=== PATIENT | female | born 1945 | race Caucasian/White ===

== ENCOUNTER 2023-02-16 09:04 | Outpatient (OUT) | payer MEDICARE, SELFPAY ==
--- NOTE | 2023-02-16 09:08 | MM_ITS ---
Patient Name: MILDRED BRAN MR#: [id number] : 1945 Exam Date: 02/16/2023 Ordering Doctor: DR. SKYLAR BURGOS . RADIOLOGY REPORT PROCEDURE: MM TOMOSYNTHESIS SCREENING BI COMPARISON: MG MAMM SCREEN VENKAT W CAD, 03/16/2018. MG MAMM SCREEN VENKAT W CAD, 10/28/2019. INDICATIONS: z12.31, z00.00 screening Calculator Name NCI Breast Cancer Risk Assessment Tool 5 Year Breast Cancer Risk 2.90% Lifetime Breast Cancer Risk 6.20% Personal Breast Cancer No Personal Ovarian Cancer No Treatments None Family Cancers None LOCATION: [facility] BREAST COMPOSITION: Scattered areas fibroglandular density. FINDINGS: DIAGNOSTIC CATEGORY 1--NEGATIVE. NO CHANGE FROM COMPARISON ASSESSMENT. Scattered benign-appearing calcifications are present. Scattered benign-appearing lymph nodes are present. RIGHT BREAST: No significant suspicious finding. Stable micro clip marker upper outer quadrant, mid breast LEFT BREAST: No significant suspicious finding. RECOMMENDATIONS: ROUTINE MAMMOGRAM AND CLINICAL EVALUATION IN 12 MONTHS. PLEASE NOTE: A NORMAL MAMMOGRAM DOES NOT EXCLUDE THE POSSIBILITY OF BREAST CANCER. A CLINICALLY SUSPICIOUS PALPABLE LUMP SHOULD BE BIOPSIED. Dictated by: Jatinder Morris MD on 02/16/2023 at 10:14 Approved by: Jatinder Morris MD on 02/16/2023 at 10:16
--- NOTE | 2023-02-16 09:09 | XR_ITS ---
[address] [address] Patient Name: MILDRED BRAN MRN: [id number] date: 1945 Sex: F Assigned Patient Location: [facility] Current Patient Location: [facility] Accession/Order Number: [id number] Exam Date: 02/16/2023 09:25 Report Date: 02/16/2023 09:44 At the request of: SKYLAR BURGOS Procedure: XR DEXA axial skeleton EXAMINATION: XR DEXA axial skeleton, 02/16/2023 9:25 AM EST HISTORY: E28.39, Z00.00, screening COMPARISON: 2008, 2006. TECHNIQUE: Dual-energy X-ray absorptiometry (DEXA) bone density study performed for the axial skeleton. HISTORY: E28.39, Z00.00, screening FINDINGS: Bone mineral density AP spine L2-L4 measures 0.974 g/sq cm. This is a 4.9% reduction from 2009, physiologic. WHO classification: Osteopenia. Moderate fracture risk. Bone mineral density in the right femoral neck measures 0.772 g/sq cm. T score -1.9. WHO classification: Osteopenia XR/XR DEXA axial skeleton IMPRESSION: Osteopenia. Moderate fracture risk Electronically authenticated by: INNA RODAS Date: 02/16/2023 09:44
== END 2023-02-16 09:05 | disposition home or self-care (01) ==
LOC: MAMMO 09:05
PROVIDERS: PCP Family Medicine; Visit Provider Family Medicine
DX: Z12.31 Encounter for screening mammogram for malignant neoplasm of breast (principal); Z00.00 Encounter for general adult medical examination without abnormal findings; E28.39 Other primary ovarian failure; M85.80 Other specified disorders of bone density and structure, unspecified site
CPT/HCPCS: 77063; 77067; 77080

== ENCOUNTER 2023-10-31 16:01 | Emergency (ER) | payer MEDICARE, SELFPAY ==
[2023-10-31 16:06] VITALS: BP 145/64; PULSE 82; TEMP 37; O2SAT 97; BMI 36.2
--- OUTSIDE RECORDS SUMMARY | 2023-10-31 16:12 | XMS_ITS | CCD ---
Author Organization [facility] Care Team Providers Care Bulk Driver Name Role Phone MD Lisandra Ring Primary Care Provider DO Jatinder Pittman Attending Provider LISANDRA RING Primary Care Physician RING ., DR LISANDRA Chinchilla Admitting Unavailable IRNG ., DR LISANDRA Chinchilla Attending Unavailable RING ., DR LISANDRA Chinchilla Consulting Unavailable RING ., DR LISANDRA Chinchilla Primary Care Unavailable MISC, DR DE LA ROSA Admitting Unavailable MISC, DR DE LA ROSA Attending Unavailable MISC, DR DE LA ROSA Consulting Unavailable RING ., DR LISANDRA Chinchilla Primary Care Unavailable RING ., DR LISANDRA Chinchilla Primary Care Unavailable RING ., DR LISANDRA Chinchilla Admitting Unavailable RING ., DR LISANDRA Chinchilla Attending Unavailable RING ., DR LISANDRA Chinchilla Consulting Unavailable KRISTIN ., TORIE Admitting Unavailable KRISTIN ., TORIE Attending Unavailable KRISTIN ., TORIE Consulting Unavailable RING ., DR LISANDRA Chinchilla Primary Care Unavailable IVANNA LEZAMA Admitting Unavailable LISE, IVANNA Attending Unavailable LISE, IVANNA Consulting Unavailable RING ., DR LISANDRA Chinchilla Primary Care Unavailable CHRISTELLE RAYMOND Consulting Unavailable MICH MCKENZIE Consulting Unavailable TAHIR ., DR SÁNCHEZ Admitting Unavailable HARO ., DR SÁNCHEZ Attending Unavailable RING ., DR LISANDRA Chinchilla Primary Care Unavailable RING ., DR LISANDRA Chinchilla Admitting Unavailable RING ., DR LISANDRA Chinchilla Attending Unavailable RING ., DR LISANDRA Chinchilla Consulting Unavailable RING ., DR LISANDRA Chinchilla Primary Care Unavailable RING ., DR LISANDRA Chinchilla Admitting Unavailable RING ., DR LISANDRA Chinchilla Attending Unavailable RING ., DR LISANDRA Chinchilla Primary Care Unavailable RING ., DR LISANDRA Chinchilla Admitting Unavailable RING ., DR LISANDRA Chinchilla Primary Care Unavailable RING ., DR LISANDRA Chinchilla Attending Unavailable RING ., DR LISANDRA Chinchilla Consulting Unavailable RINGLISANDRA Primary Care Physician Bony Calhoun Primary Care Physician Bony Calhoun Attending Unavailable Bony Calhoun Admitting Unavailable MD Bony Calhoun Attending Unavailable MD Bony Calhoun Admitting Unavailable Neva Melissa Attending Unavailable MD Bony Calhoun Attending Unavailable MD Bony Calhoun Attending Unavailable MD Bony Calhoun Attending Unavailable MD Bony Calhoun Attending Unavailable MD Bony Calhoun Attending Unavailable MD Bony Calhoun Attending Unavailable MD Bony Calhoun Attending Unavailable MD Bony Calhoun Attending Unavailable MD Bony Calhoun Admitting Unavailable Palomo Bernard Attending Unavailable Palomo Bernard Admitting Unavailable Palomo Bernard Attending Unavailable Chen Estrella Referring Unavailable Allergies Allergy Classification Reported Allergen(s) Allergy Type Date of Onset Reaction(s) Facility (3 sources) Adhesive Tape; Translations: [Adhesive tape] Allergy to substance 3 Itching [facility] (12 sources) Albuterol; Translations: [Albuterol] Drug Allergy 5 Difficulty breathing (finding) [facility] (12 sources) benzoin resin; Translations: [Benzoin] Drug Allergy 3 Blister (morphologic abnormality) [facility] (16 sources) Cephalexin; Translations: [Cephalexin] Drug Allergy 2 Unknown (qualifier value), Anaphylaxis (disorder) [facility] (9 sources) Adhesive Tape; Translations: [Tape] Allergy to substance Blister (morphologic abnormality) [facility] (4 sources) Cephalexin; Translations: [Keflex] Drug Allergy 1 [facility] Repository Medications Current Medications Medication Drug Class(es) Dates Sig (Normalized) Sig (Original) acetaminophen 325 mg / oxyCODONE hydrochloride 5 mg oral tablet (1 source) Opioid Agonist Start: 05-11-2023 End: 05-14-2023 Percocet 5 mg-325 mg oral tablet 1 tab(s), Oral, q6hr for 3 day(s), 10 tab(s), Refill(s) 0, [id number], 152, cm, 05/11/23 9:24:00 EST, Height/Length Dosing, 89, kg, 05/11/23 9:24:00 EST, Weight Dosing Start Date: 05/11/23 Stop Date: 05/14/23 Status: Ordered alendronic acid 35 mg oral tablet (4 sources) Bisphosphonate Start: 03-30-2023 alendronate 35 mg Tab 35 mg = 1 tab(s), Oral, q7day, # 12 tab(s), Refills(s) 0, [id number] 152, cm, 03/30/23 10:10:00 EST, Height/Length Dosing, 88.5, kg, 03/30/23 10:10:00 EST, Weight Dosing Start Date: 03/30/23 Status: Ordered amitriptyline hydrochloride 10 mg oral tablet (8 sources) Tricyclic Antidepressant Start: 05-21-2023 amitriptyline 10 mg Tab See Instructions, TAKE 4 TABLETS AT BEDTIME, # 360 tab(s), Refills(s) 1, Pharmacy: [facility] [id number], 152, cm, 05/11/23 9:24:00 EST, Height/Length Dosing, 89, kg, 05/11/23 9:24:00 EST, Weight Dosing Start Date: 05/21/23 Status: Ordered Start: 12-01-2022 amitriptyline 10 mg Tab See Instructions, 40mg at bedtime, # 120 EA, Refills(s) 5, [id number], 152, cm, 09/26/22 9:58:00 EDT, Height/Length Dosing, 90.3, kg, 09/26/22 9:58:00 EDT, Weight Dosing Start Date: 12/01/22 Status: Ordered Start: 09-27-2021 take 10 mg by mouth once daily Amitriptyline Active 10 MG PO Daily September 27, 2021 12:00am Start: 04-19-2012 amitriptyline See Instructions, 40mg at bedtime, Refills(s) 0 Start Date: 04/19/12 Status: Ordered Start: 04-19-2012 take 3-4 tablets by mouth at bedtime amitriptyline 10 mg, Oral, 3-4 tabs at bedtime, Refills(s) 0 Start Date: 04/19/12 Status: Ordered baclofen 5 mg oral tablet (2 sources) gamma-Aminobutyric Acid-ergic Agonist Start: 10-01-2023 End: 10-31-2023 take 1 tablet by mouth three times daily baclofen 5 mg oral tablet 5 mg = 1 tab(s), Oral, TID, X 30 day(s), # 90 tab(s), Refills(s) 0, [id number], 151, cm, 10/01/23 10:24:00 EDT, Height/Length Dosing, 87.3, kg, 10/01/23 10:24:00 EDT, Weight Dosing Start Date: 10/01/23 Stop Date: 10/31/23 Status: Ordered Calcium Citrate / Vitamin D (7 sources) Start: 04-19-2012 calcium-vitamin D BID, Refill(s) 0 Start Date: 04/19/12 Status: Ordered celecoxib 200 mg oral capsule (8 sources) Nonsteroidal Anti-inflammatory Drug Start: 05-21-2023 take 1 capsule by mouth twice daily celecoxib 200 mg Cap See Instructions, TAKE 1 CAPSULE BY MOUTH TWICE A DAY, # 180 cap(s), Refills(s) 1, Pharmacy: [id number], 152, cm, 05/11/23 9:24:00 EST, Height/Length Dosing, 89, kg, 05/11/23 9:24:00 EST, Weight Dosing Start Date: 05/21/23 Status: Ordered Start: 12-08-2022 take 1 capsule by [facility] twice daily CeleBREX 200 mg Cap 200 mg, Oral, BID, # 180 cap(s), Refills(s) 1, [id number], 152, cm, 09/26/22 9:58:00 EDT, Height/Length Dosing, 90.3, kg, 09/26/22 9:58:00 EDT, Weight Dosing Start Date: 12/08/22 Status: Ordered Start: 09-27-2021 take 200 mg by mouth once mikayla y Celecoxib Active 200 MG PO Daily September 27, 2021 12:00am Start: 04-19-2012 take 200 mg by mouth twice daily Celebrex 200 mg, Oral, BID, Refills(s) 0 Start Date: 04/19/12 Status: Ordered ciprofloxacin 500 mg oral tablet (1 source) Quinolone Antimicrobial Start: 05-11-2023 End: 05-16-2023 take 1 tablet by mouth twice daily Cipro 500 mg Tab 500 mg = 1 tab(s), Oral, BID, X 5 day(s), # 10 tab(s), Refills(s) 0, [id number], 152, cm, 05/11/23 9:24:00 EST, Height/Length Dosing, 89, kg, 05/11/23 9:24:00 EST, Weight Dosing Start Date: 05/11/23 Stop Date: 05/16/23 Status: Ordered Dosokap oral tablet (4 sources) Start: 02-23-2023 Dosokap oral tablet 1 tab(s), Oral, Daily, 90 tab(s), Refill(s) 0, [facility] #[id number], 152, cm, 02/23/23 15:56:00 EST, Height/Length Dosing, 89.7, kg, 02/23/23 15:56:00 EST, Weight Dosing Start Date: 02/23/23 Status: Ordered ferrous sulfate 324 mg delayed release oral tablet (7 sources) Start: 04-19-2012 ferrous sulfate 324 mg (65 mg elemental iron) oral enteric coated tablet Oral, Daily, Refills(s) 0 Start Date: 04/19/12 Status: Ordered FLUoxetine 40 mg oral capsule (6 sources) Serotonin Reuptake Inhibitor Start: 10-01-2023 FLUoxetine 40 mg Cap Refills(s) 0 Start Date: 10/01/23 Status: Ordered Start: 09-27-2021 take 1 capsule by [facility] once daily Fluoxetine (Prozac) 20 mg Capsule Active 20 MG PO Daily September 27, 2021 12:00am Start: 12-20-2018 take 2 capsules by [facility] once daily Prozac 40 mg Cap 80 mg = 2 cap(s), Oral, Daily, # 30 cap(s), Refills(s) 0 Start Date: 12/20/18 Status: Ordered Start: 12-20-2018 take 1 capsule by [facility] once daily Prozac 40 mg Cap 40 mg = 1 cap(s), Oral, Daily, # 30 cap(s), Refills(s) 0 Start Date: 12/20/18 Status: Ordered hydroCHLOROthiazide 12.5 mg oral capsule (7 sources) Thiazide Diuretic Start: 09-03-2023 take 1 capsule by mouth once daily hydrochlorothiazide 12.5 mg Cap See Instructions, TAKE 1 CAPSULE BY MOUTH EVERY DAY, # 90 cap(s), Refills(s) 0, [id number], 152, cm, 05/11/23 9:24:00 EST, Height/Length Dosing, 89, kg, 05/11/23 9:24:00 EST, Weight Dosing Start Date: 09/03/23 Status: Ordered Start: 02-23-2023 take 1 capsule by [facility] once daily hydrochlorothiazide 12.5 mg Cap 12.5 mg = 1 cap(s), Oral, Daily, # 90 cap(s), Refills(s) 1, [id number], 152, cm, 02/23/23 15:56:00 EST, Height/Length Dosing, 89.7, kg, 02/23/23 15:56:00 EST, Weight Dosing Start Date: 02/23/23 Status: Ordered Start: 04-21-2022 take 1 capsule by [facility] once daily hydrochlorothiazide 12.5 mg Cap 12.5 mg = 1 cap(s), Oral, Daily, # 30 cap(s), Refills(s) 1, [id number] Start Date: 04/21/22 Status: Ordered levothyroxine sodium 0.075 mg oral tablet (8 sources) l-Thyroxine Start: 06-30-2023 take 1 tablet by mouth once daily levothyroxine 75 mcg (0.075 mg) Tab See Instructions, TAKE 1 TABLET BY MOUTH EVERY DAY, # 90 tab(s), Refills(s) 0, Pharmacy: [facility] [id number], 152, cm, 09/28/23 10:22:00 EDT, Height/Length Dosing, 87.7, kg, 09/28/23 10:22:00 EDT, Weight Dosing Start Date: 09/29/23 Status: Ordered Start: 03-30-20[address] [facility] once daily levothyroxine 75 mcg (0.075 mg) Tab 75 mcg = 1 tab(s), Oral, Daily, # 90 tab(s), Refills(s) 0, Pharmacy: [facility]/pharmacy #[id number], 152, cm, 03/30/23 10:10:00 EST, Height/Length Dosing, 88.5, kg, 03/30/23 10:10:00 EST, Weight Dosing Start Date: 03/30/23 Status: Ordered Start: 04-21-2022 take 1 tablet by ester th once daily levothyroxine 75 mcg (0.075 mg) Tab 75 mcg = 1 tab(s), Oral, Daily, Refills(s) 0 Start Date: 04/21/22 Status: Ordered Start: 09-27-2021 take 75 ug by mouth once daily Levothyroxine Active 75 MCG PO Daily September 27, 2021 12:00am metFORMIN hydrochloride 500 mg oral tablet (4 sources) Biguanide Start: 09-22-2023 take 1 tablet by mouth once daily MetFORMIN (Eqv-Glucophage XR) 500 mg oral tablet, extended release See Instructions, TAKE 1 TABLET BY MOUTH EVERY DAY, # 90 tab(s), Refills(s) 0, Pharmacy: [id number], 152, cm, 05/11/23 9:24:00 EST, Height/Length Dosing, 89, kg, 05/11/23 9:24:00 EST, Weight Dosing Start Date: 09/22/23 Status: Ordered Start: 03-23-2023 take 1 tablet by ester th once daily MetFORMIN (Eqv-Glucophage XR) 500 mg oral tablet, extended release See Instructions, TAKE 1 TABLET BY MOUTH EVERY DAY, # 90 tab(s), Refills(s) 0, Pharmacy: [facility] STORE [id number], 152, cm, 02/23/23 15:56:00 EST, Height/Length Dosing, 89.7, kg, 02/23/23 15:56:00 EST, Weight Dosing Start Date: 03/23/23 Status: Ordered modafinil 200 mg oral tablet (8 sources) Sympathomimetic-like Agent Start: 07-03-2023 take 0.5 tablet by mouth once daily in the morning modafinil 200 mg Tab See Instructions, 0.5 tab(s) Oral qAM, # 90 tab(s), Refills(s) 0, Pharmacy: [facility]/pharmacy #[id number], 152, cm, 05/11/23 9:24:00 EST, Height/Length Dosing, 89, kg, 05/11/23 9:24:00 EST, Weight Dosing Start Date: 07/03/23 Status: Ordered Start: 09-27-2021 take 100 mg by mouth once mikayla y Modafinil Active 100 MG PO Daily September 27, 2021 12:00am Start: 04-19-2012 take 0.5 tablet by m outh once daily in the morning modafinil 200 mg, Oral, qAM, half tab, Refills(s) 0 Start Date: 04/19/12 Status: Ordered Start: 04-19-2012 take 0.5 tablet by m outh once daily in the morning modafinil 100 mg, Oral, qAM, half tab, Refills(s) 0 Start Date: 04/19/12 Status: Ordered oxybutynin chloride 5 mg oral tablet (7 sources) Cholinergic Muscarinic Antagonist Start: 04-21-2022 take 1 tablet by mouth once daily oxybutynin 5 mg Tab 5 mg = 1 tab(s), Oral, Daily, Refills(s) 0 Start Date: 04/21/22 Status: Ordered Multivitamins (3 sources) Start: 04-19-2012 take 1 tablet by mouth once daily Multivitamins 1 tab(s), Oral, Daily, Refill(s) 0 Start Date: 04/19/12 Status: Ordered PreserVision AREDS (2 sources) Start: 10-01-2023 PreserVision AREDS Refill(s) 0 Start Date: 10/01/23 Status: Ordered tamsulosin hydrochloride 0.4 mg oral capsule (4 sources) alpha-Adrenergic Vivek Start: 05-11-2023 take 1 capsule by mouth once daily Flomax 0.4 mg Cap 0.4 mg = 1 cap(s), Oral, Daily, Take one capsule by mouth daily for four days, # 4 cap(s), Refills(s) 0, Pharmacy: [facility]/pharmacy #[id number], 152, cm, 05/11/23 9:24:00 EST, Height/Length Dosing, 89, kg, 05/11/23 9:24:00 EST, Weight Dosing Start Date: 05/11/23 Status: Ordered tiZANidine 4 mg oral capsule (3 sources) Central alpha-2 Adrenergic Agonist Start: 09-28-2023 take 1 capsule by mouth three times daily as needed for muscle spasms tizanidine 4 mg oral capsule 4 mg = 1 cap(s), Oral, TID, PRN Spasm, # 90 cap(s), Refills(s) 0, Pharmacy: [facility]/pharmacy #[id number], 152, cm, 09/28/23 10:22:00 EDT, Height/Length Dosing, 87.7, kg, 09/28/23 10:22:00 EDT, Weight Dosing Start Date: 09/28/23 Status: Ordered Problems Active Problems Problem Classification Problem Date Documented Da te Episodic/Chronic Abdominal pain (6 sources) Flank pain; Translations: [Unspecified abdominal pain] Onset: 04-10-2022 12-20-2018 Episodic Calculus of urinary tract (14 sources) Kidney stone; Translations: [Calculus of kidney] Onset: 04-11-2022 Episodic Deficiency and other anemia (7 sources) Anemia 10-01-2018 Episodic Deficiency and other anemia (4 sources) Anemia, unspecified; Translations: [ANEMIA UNSPECIFIED] Onset: 06-05-2022 Episodic Diabetes mellitus without complication (3 sources) Type 2 diabetes mellitus 09-28-2023 Chronic Diabetes mellitus without complication (5 sources) Hyperglycemia 12-22-2022 Episodic Disorders of lipid metabolism (9 sources) Pure hypercholesterolemia , unspecified; Translations: [Hypercholesterolemi a] Onset: 08-15-2021 Chronic Diverticulosis and diverticulitis (1 source) Diverticulosis of large intestine without perforation or abscess without bleeding; Translations: [DVRTCLOS LG INT NO PERF/ABSC W/O BL] Onset: 04-11-2022 Chronic Essential hypertension (6 sources) Essential (primary) hypertension; Translations: [Benign hypertension] Onset: 06-11-2022 09-26-2022 Chronic Genitourinary symptoms and ill-defined conditions (11 sources) Mixed incontinence; Translations: [Incontinence] Onset: 04-21-2022 Chronic Genitourinary symptoms and ill-defined conditions (19 sources) Dysuria; Translations: [Vargas hematuria] 10-01-2018 Episodic Hepatitis (2 sources) Viral hepatitis, type A 10-01-2018 Episodic Mood disorders (7 sources) Depressive disorder; Translations: [Single episode of major depression in full remission] 10-01-2018 Chronic Osteoarthritis (7 sources) Arthritis 10-01-2018 Chronic Other aftercare (1 source) 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; Translations: [OTH [facility] CURRENT DRUG THERAPY] Onset: 04-11-2022 Episodic Other bone disease and musculoskeletal deformities (4 sources) Osteopenia 02-16-2023 Episodic Other diseases of kidney and ureters (2 sources) Urinary tract obstruction; Translations: [Hydronephrosis with renal and ureteral calculous obstruction] Onset: 04-21-2022 Episodic Other diseases of kidney and ureters (14 sources) Hydronephrosis 12-20-2018 Episodic Other gastrointestinal disorders (1 source) Alteration in bowel elimination; Translations: [Change in bowel habit] 09-27-2021 Episodic Other gastrointestinal disorders (1 source) Change in bowel habit; Translations: [Other symptoms involving digestive system] 09-27-2021 Episodic Other gastrointestinal disorders (1 source) Bariatric surgery status; Translations: [BARIATRIC SURGERY STATUS] Onset: 04-11-2022 Episodic Other liver diseases (2 sources) Steatosis of liver 10-01-2023 Chronic Other liver diseases (4 sources) Elevated liver enzymes level 12-31-2022 Episodic Other nervous system disorders (5 sources) Taste sense altered 12-22-2022 Episodic Other non-traumatic joint disorders (4 sources) Other specified arthritis, unspecified site; Translations: [OTHER SPECIFIED ARTHRITIS UNS SITE] Onset: 12-11-2021 Chronic Other nutritional; endocrine; and metabolic disorders (3 sources) Body mass index 40+ - severely obese 12-20-2018 Chronic Other nutritional; endocrine; and metabolic disorders (7 sources) Morbid obesity 10-01-2018 Chronic Other nutritional; endocrine; and metabolic disorders (1 source) Morbid (severe) obesity due to excess calories; Translations: [MORBID SEVERE OBES D/T EXCESS WAYNE] Onset: 06-11-2022 Chronic Other nutritional; endocrine; and metabolic disorders (1 source) Body mass index (BMI) 40.0-44.9, adult; Translations: [BODY MASS INDEX BMI 40.0-44.9 ADULT] Onset: 06-11-2022 Chronic Other nutritional; endocrine; and metabolic disorders (5 sources) Metabolic syndrome X 09-17-2022 Chronic Residual codes; unclassified (1 source) Obstructive sleep apnea (adult) (pediatric); Translations: [OBSTRUCTIVE SLEEP APNEA] Onset: 06-11-2022 Chronic Residual codes; unclassified (5 sources) Hypersomnia 12-22-2022 Chronic Residual codes; unclassified (5 sources) Obstructive sleep apnea syndrome 09-17-2022 Chronic Residual codes; unclassified (1 source) Acquired absence of both cervix and uterus; Translations: [ACQUIRED ABSENCE BOTH CERVIX AND UTERUS] Onset: 04-11-2022 Episodic Spondylosis; intervertebral disc disorders; other back problems (4 sources) Backache 02-23-2023 Episodic Thyroid disorders (6 sources) Hypothyroidism, unspecified; Translations: [Hypothyroidism] Onset: 08-19-2021 09-26-2022 Chronic Unclassified (7 sources) Drug therapy finding 10-01-2018 Urinary tract infections (2 sources) Pyonephrosis; Translations: [Hematuria co-occurrent and due to cystitis] Onset: 04-11-2022 Episodic Past or Other Problems Problem Classification Problem Date Documented Da te Episodic/Chronic Malaise and fatigue (1 source) Other fatigue; Translations: [OTHER FATIGUE] Onset: 08-19-2021 Episodic Nonspecific chest pain (5 sources) Other chest pain; Translations: [OTHER CHEST PAIN] Onset: 08-20-2021 Episodic Other lower respiratory disease (5 sources) Other forms of dyspnea; Translations: [OTHER FORMS OF DYSPNEA] Onset: 08-22-2021 Episodic Other skin disorders (3 sources) Rash and other nonspecific skin eruption; Translations: [RASH OTH NONSPECIFIC SKIN ERUPTION] Onset: 09-26-2021 Episodic Viral infection (1 source) Zoster without complications; Translations: [ZOSTER WITHOUT COMPLICATIONS] Onset: 09-27-2021 Episodic Results Test Name Value Interpretation Reference Range Facil ity XR Hip 2-3 Views Lefton 09-07 XR Hip 2-3 Views Left Exam Date/Time: 10/01/2023 11:54 EDT Reason for Exam: Other (please specify) Report IMPRESSION: MILD OSTEOARTHRITIS OF THE LEFT HIP CLINICAL HISTORY: Other (please specify) COMPARISONS: NONE AVAILABLE FINDINGS: 2 views of left hip are submitted. There is mild narrowing of the joint space. There is some minimal degenerative changes. No dislocation. No focal bony abnormality. No acute fracture Ordering Provider: Palomo Bernard FINAL REPORT Dictated: 10/01/2023 3:12 pm Benedicto Dewey Signed (Electronic Signature): 10/01/2023 3:12 pm Signed by: Benedicto Dewey Transcribed by: RAISSA Technologist: SHANNA Technical Comments Radiation Dose: Ka,r in mGy = . DAP = . Normal [facility] XR Spine Lumbosacral Minimum 4 Viewson 10-01-2023 XR Spine Lumbosacral Minimum 4 Views Exam Date/Time: 10/01/2023 11:53 EDT Reason for Exam: M25.552, M47.816 Report IMPRESSION: Multilevel osteoarthritis of lumbar spine. No acute fracture CLINICAL HISTORY: M25.552, M47.816 COMPARISON: NONE FINDINGS: 6 views lumbar spine are submitted. There are 5 lumbar-type vertebra. There is diffuse to as osteopenia There is a mild rotatory levoscoliosis.. There is multilevel degenerative changes of the posterior facets lower lumbar spine. There is anterior spondylosis. There is narrowing of the L1-L2, L3-L4 and L4-L5 disc spaces. No significant listhesis The SI joints are intact. No focal bony adenopathy. No spondylolysis. No acute fracture Ordering Provider: Palomo Bernard FINAL REPORT Dictated: 10/01/2023 8:29 pm Benedicto Dewey Signed (Electronic Signature): 10/01/2023 8:29 pm Signed by: Benedicto Dewey Transcribed by: RAISSA Technologist: SHANNA Technical Comments Radiation Dose: Ka,r in mGy = . DAP = . Normal [facility] [id number] 09-29-2023 HbA1c (Bld) [Mass fraction] 5.9 % Normal <=5.9 [facility] Comment on above: Performed By: #### [id number] #### [facility] [address] [place] [address] Ambulatory Visit Summaryon 0 09-28-2023 Ambulatory Visit Summary Ambulatory Visit Summary MILDRED BRAN :1945 Visit Date:09/28/2023 Ambulatory Visit Instructions Your Diagnosis HTN (hypertension), benign Hypersomnia BMI 37.0-37.9, adult Class 1 obesity due to excess calories in adult Nonsmoker Type 2 diabetes mellitus, controlled Metabolic syndrome X Back pain Major depressive disorder with single episode, in full remission Hypothyroidism, unspecified type Your Care Team Attending Physician - Bony Calhoun MD Primary Care Physician - Bony Calhoun MD This Is Your Medications List tizanidine (tizanidine 4 mg oral capsule) Contact prescribing physician if questions or concerns alendronate (alendronate 35 mg Tab) amitriptyline (amitriptyline 10 mg Tab) calcium-vitamin D celecoxib (celecoxib 200 mg Cap) ferrous sulfate (ferrous sulfate 324 mg (65 mg elemental iron) oral enteric coated tablet) hydrochlorothiazide (hydrochlorothiazide 12.5 mg Cap) levothyroxine (levothyroxine 75 mcg (0.075 mg) Tab) metformin (MetFORMIN (Eqv-Glucophage XR) 500 mg oral tablet, extended release) modafinil (modafinil 200 mg Tab) multivitamin (Dosokap oral tablet) oxybutynin (oxybutynin 5 mg Tab) tamsulosin (Flomax 0.4 mg Cap) Procedures Performed ESWL of kidney (07/19/2019), Lithotripsy (04/15/2018), Lithotripsy using laser (04/08/2018), Appendectomy, Colonoscopy, Gastric bypass, Hernia repair, Hysterectomy, Repair of vagina, Stent removal. Discharge Vitals Temperature (Oral) 36.7 ?C Heart Rate (Peripheral) 76 Respiratory Rate 18 Blood Pressure 122/76 Height 152 cm Height 60 in Weight 87.7 kg Weight 192.94 lb BMI 37.96 What to do next Scheduled Follow-Up Appointments Thursday 10:00 AM EDT With: Bony Calhoun MD Where: [place] [id number] \.br\ Medications\.br\ What How Much When Why Instructions\.br\ New tizanidine (tizanidine 4 mg oral capsule) 1 Capsules By Mouth 3 times a day as needed for Spasm HTN (hypertension), benign Hypersomnia BMI 37.0-37.9, adult Class 1 obesity due to excess calories in adult Nonsmoker Type 2 diabetes mellitus, controlled Metabolic syndrome X Back pain Major depressive disorder with single episode, in full remission Hypothyroidism, unspecified type Pickup at [facility]/pharmacy #[id number]\.br\ Unchanged alendronate (alendronate 35 mg Tab) 1 Tablets By Mouth Every 7 days Osteopenia HTN (hypertension), benign Major depressive disorder with single episode, in full remission Hyperglycemia Kidney stones Back pain Contact prescribing physician if questions or concerns \.br\ Unchanged amitriptyline (amitriptyline 10 mg Tab) See instructions TAKE 4 TABLETS AT BEDTIME Contact prescribing physician if questions or concerns \.br\ Unchanged calcium-vitamin D 2 times a day Contact prescribing physician if questions or concerns \.br\ Unchanged celecoxib (celecoxib 200 mg Cap) See instructions TAKE 1 CAPSULE BY MOUTH TWICE A DAY Contact prescribing physician if questions or concerns \.br\ Unchanged ferrous sulfate (ferrous sulfate 324 mg (65 mg elemental iron) oral enteric coated tablet) By Mouth Every day Contact prescribing physician if questions or concerns \.br\ Unchanged hydrochlorothiazide (hydrochlorothiazide 12.5 mg Cap) See instructions TAKE 1 CAPSULE BY MOUTH EVERY DAY Contact prescribing physician if questions or concerns \.br\ Unchanged levothyroxine (levothyroxine 75 mcg (0.075 mg) Tab) See instructions TAKE 1 TABLET BY MOUTH EVERY DAY Contact prescribing physician if questions or concerns \.br\ Unchanged metformin (MetFORMIN (Eqv-Glucophage XR) 500 mg oral tablet, extended release) See instructions TAKE 1 TABLET BY MOUTH EVERY DAY Contact prescribing physician if questions or concerns \.br\ Unchanged modafinil (modafinil 200 mg Tab) See instructions 0.5 tab(s) Oral qAM Contact prescribing physician if questions or concerns \.br\ Unchanged multivitamin (Dosokap oral tablet) 1 Tablets By Mouth Every day Osteopenia HTN (hypertension), benign Major depressive disorder with single episode, in full remission Hyperglycemia Kidney stones Back pain Contact prescribing physician if questions or concerns \.br\ Unchanged oxybutynin (oxybutynin 5 mg Tab) 1 Tablets By Mouth Every day Contact prescribing physician if questions or concerns \.br\ Unchanged tamsulosin (Flomax 0.4 mg Cap) 1 Capsules By Mouth Every day Take one capsule by mouth daily for four days Contact prescribing physician if questions or concerns \.br\ Pharmacy Information\.br\ [facility]/pharmacy #[id number]: [address], [place] [phone]\.br\ Allergies\.br\ Benzoin (Blisters)\.br\ albuterol (Difficulty breathing)\.br\ Keflex (Unknown)\.br\ Tape (Blisters)\.br\ cephalexin (Anaphylaxis)\.br\ Problems\.br\ Ongoing - Any problem that you are currently receiving treatment for.\.br\ Anemia\.br\ Anticoagulated\.br\ Arthritis\.br\ Back pain\.br\ Elevated liver enzymes\.br\ History of UTI\.br\ HTN (hypertension), benign\.br\ Hydronephrosis with obstructing calculus\.br\ Hypercholesterolemia \.br\ Hyperglycemia\.br\ Hypersomnia\.br\ Hypothyroidism\.br\ Kidney stones\.br\ Major depressive disorder with single episode, in full remission\.br\ Metabolic syndrome X\.br\ Mixed incontinence\.br\ Morbid obesity\.br\ Obstructive sleep apnea\.br\ Osteopenia\.br\ Taste impairment\.br\ Type 2 diabetes mellitus, controlled\.br\ Ureteral stone with hydronephrosis\.br\ Patient Survey\.br\ You may receive a survey via text or e-mail asking about your office visit. Please share your experience with us by completing your survey. We appreciate your feedback and thank you for choosing us for your care.\.br\ \.br\ [facility] CHEMISTRYOrdered By: SYSTEM SYSTEM on 09-28-2023 TSH Qn 0.72 m[IU]/L Normal 0.34 - 5.60 mcIU/mL Rem isol Chem Family Medicine Office/Clini c Noteon 09-28-2023 Family Medicine Office/Clinic Note Family Medicine Office/Clinic Note HPI Staff Mildred is a 77 year old female presenting for 6 month follow up htn, insomnia Patient is here for follow up on hypertension. How often are you checking your blood pressure? Doesnt check BP at home What are your average readings? N/A, Not checking at home Yearly BMP:05/11/23 _ questions/concerns: horrible back pain has to lay on her stomach as she can't sit Been bothering her for a year now History of Present Illness - See staff HPI. - Concerns for constant back pain. - Pt states 10/10 mostly r side pain. Helps when she lays down on the floor. L is upper back. - Depression is stable. Review of Systems PHQ Score Initial Depression Screen Score: 2 SCORE Physical Exam Vitals & Measurements T: 36.7 ?C(Oral) HR: 76(Peripheral) RR: 18 BP: 122/76 SpO2: 96% HT: 60 in HT: 152 cm WT: 87.7 kg WT: 192.94 lb BMI: 37.96 General: alert, no acute distress ENMT: oral mucosa moist, Cardiovascular: regular rate and rhythm, normal peripheral perfusion Respiratory: Lungs CTA, respirations non labored Extremities: no deformity, no trauma, back is not TTP at all. Neurological: oriented x 4, LOC appropriate for age, CN II-XII intact, motor strength equal & normal bilaterally, speech normal Abdomen: Soft, Nontender, Non-distended, + BS Assessment/Plan 1. HTN (hypertension), benign (I10: Essential (primary) hypertension) At goal at this time. - NO issues at this time. Ordered: tizanidine, 4 mg = 1 cap(s), Oral, TID, PRN Spasm, # 90 cap(s), Refills(s) 0, Pharmacy: [facility]pharmacy #[id number], 152, cm, 09/28/23 10:22:00 EDT, Height/Length Dosing, 87.7, kg, 09/28/23 10:22:00 EDT, Weight Dosing Body Mass Index (BMI) documented 3008F Current tobacco non-user 1036F Depression Screening Negative 3352F HgbA1c Influenza immunization administered or previously received 4274F Most recent diastolic blood pressure <80 mm Hg 3078F Patient screen for fall risk: no falls in last year or 1 fall with no injury in last year 1101F Systolic BP <130 mm Hg (Most Recent) 3074F TSH With T4fr Reflex 2. Hypersomnia (G47.10: Hypersomnia, unspecified) Continue on the modafinil. - No issues at this time. Ordered: tizanidine, 4 mg = 1 cap(s), Oral, TID, PRN Spasm, # 90 cap(s), Refills(s) 0, Pharmacy: [facility]pharmacy #[id number], 152, cm, 09/28/23 10:22:00 EDT, Height/Length Dosing, 87.7, kg, 09/28/23 10:22:00 EDT, Weight Dosing Body Mass Index (BMI) documented 3008F Current tobacco non-user 1036F Depression Screening Negative 3352F HgbA1c Influenza immunization administered or previously received 4274F Most recent diastolic blood pressure <80 mm Hg 3078F Patient screen for fall risk: no falls in last year or 1 fall with no injury in last year 1101F Systolic BP <130 mm Hg (Most Recent) 3074F TSH With T4fr Reflex 3. BMI 37.0-37.9, adult (Z68.37: Body mass index [BMI] 37.0-37.9, adult) - BMI education added Ordered: tizanidine, 4 mg = 1 cap(s), Oral, TID, PRN Spasm, # 90 cap(s), Refills(s) 0, [id number] 152, cm, 09/28/23 10:22:00 EDT, Height/Length Dosing, 87.7, kg, 09/28/23 10:22:00 EDT, Weight Dosing Body Mass Index (BMI) documented 3008F Current tobacco non-user 1036F Depression Screening Negative 3352F HgbA1c Influenza immunization administered or previously received 4274F Most recent diastolic blood pressure <80 mm Hg 3078F Patient screen for fall risk: no falls in last year or 1 fall with no injury in last year 1101F Systolic BP <130 mm Hg (Most Recent) 3074F TSH With T4fr Reflex 4. Class 1 obesity due to excess calories in adult (E66.09: Other obesity due to excess calories) - Diet and exercise advised Ordered: tizanidine, 4 mg = 1 cap(s), Oral, TID, PRN Spasm, # 90 cap(s), Refills(s) 0, [id number], 152, cm, 09/28/23 10:22:00 EDT, Height/Length Dosing, 87.7, kg, 09/28/23 10:22:00 EDT, Weight Dosing Body Mass Index (BMI) documented 3008F Current tobacco non-user 1036F Depression Screening Negative 3352F HgbA1c Influenza immunization administered or previously received 4274F Most recent diastolic blood pressure <80 mm Hg 3078F Patient screen for fall risk: no falls in last year or 1 fall with no injury in last year 1101F Systolic BP <130 mm Hg (Most Recent) 3074F TSH With T4fr Reflex 5. Nonsmoker (Z78.9: Other specified health status) - Please continue to not smoke. Ordered: tizanidine, 4 mg = 1 cap(s), Oral, TID, PRN Spasm, # 90 cap(s), Refills(s) 0, Pharmacy: [facility]/pharmacy #[id number], 152, cm, 09/28/23 10:22:00 EDT, Height/Length Dosing, 87.7, kg, 09/28/23 10:22:00 EDT, Weight Dosing Body Mass Index (BMI) documented 3008F Current tobacco non-user 1036F Depression Screening Negative 3352F HgbA1c Influenza immunization administered or previously received 4274F Most recent diastolic blood pressure <80 mm Hg 3078F Patient screen for fall risk: no falls in last year or 1 fall with no injury in last year 1101F Systoli (more content not included)... Normal [facility] Comment on above: Result Comment: Elec tronically Signed By: Lj RODRIGUEZ, Bony Gabriel.br\Date and Time Signed: 09/28/23 10:41 EDT TSH With T4fr Reflexon 09-27 TSH Qn 0.72 m[IU]/L Normal 0.34-5.60 [facility] Comment on above: Performed By: #### 1 [id number] #### [facility] [address] [place] [address] Pre-Certification Formon Pre-Certification Form [id number] #1.00TIFF Normal [facility] CBC w/ Auto Diffon 4 Basophils/100 WBC (Bld) 0.8 % Normal 0.0-2.0 [facility] Comment on above: Performed By: #### 2 853350, 92655240, 5924900, 30343186 ####[facility] [address] [place] [address] Basophils/Leukocyte s Auto (Bld) [Pure # fraction] 0.0 E9/L Normal 0.0-0.2 [facility] Comment on above: Performed By: #### 2 839169, 77761969, 6230373, 91125691 ####[facility] [address] [place] [address] Eosinophils (Bld) [#/Vol] 0.1 E9/L Normal 0.0-0.5 [facility] Comment on above: Performed By: #### 2 705002, 80760628, 7941312, 25638404 ####[facility] [address] [place] [address] Eosinophils/100 WBC (Bld) 1.9 % Normal 0.0-8.0 [facility] Comment on above: Performed By: #### 2 186702, 57744236, 3076219, 00174841 ####[address] [address] Erythrocyte distribution width (RBC) [Ratio] 13.1 % Normal 10.9-14.2 [facility] Comment on above: Performed By: #### 2 312070, 92484975, 9471620, 85980324 ####[address] [address] Hematocrit (Bld) [Volume fraction] 39.9 % Normal 34.0-46.0 [facility] Comment on above: Performed By: #### 2 674322, 03652151, 1849800, 64673530 ####[address] [address] Hemoglobin (Bld) [Mass/Vol] 13.1 g/dL Normal 12.0-16.0 [facility] Comment on above: Performed By: #### 2 128282, 58535020, 1498777, 30622525 ####[address] [address] Lymphocytes (Bld) [#/Vol] 1.5 E9/L Normal 1.0-4.0 [facility] Comment on above: Performed By: #### 2 518149, 52948999, 2368984, 76871974 ####[address] [address] Lymphocytes/100 WBC (Bld) 30.1 % Normal 14.0-50.0 [facility] Comment on above: Performed By: #### 2 249414, 33790561, 3698375, 64871021 ####[address] [address] MCH (RBC) [Entitic mass] 29.7 pg Normal 27.0-34.0 [facility] Comment on above: Performed By: #### 2 271457, 30955098, 4525310, 54571985 ####[address] [address] MCHC (RBC) [Mass/Vol] 32.8 g/dL Normal 31.4-36.0 [facility] Comment on above: Performed By: #### 2 117723, 66986347, 1604819, 87653707 ####[address] [address] MCV (RBC) [Entitic vol] 90.8 fL Normal 80.0-100.0 [facility] Comment on above: Performed By: #### 2 052681, 38087991, 9421215, 92739658 ####[address] [address] Monocytes (Bld) [#/Vol] 0.4 E9/L Normal 0.2-1.0 [facility] Comment on above: Performed By: #### 2 474892, 70736273, 1761060, 97050631 ####[address] [address] Neutrophils (Bld) [#/Vol] 2.9 E9/L Normal 2.0-7.5 [facility] Comment on above: Performed By: #### 2 072699, 61305574, 9416309, 41672114 ####[address] [address] Neutrophils/100 WBC (Bld) 58.5 % Normal 36.0-75.0 [facility] Comment on above: Performed By: #### 2 516920, 15041663, 1754755, 41625602 ####[facility] [address] [place] [address] Platelet mean volume (Bld) [Entitic vol] 8.0 fL Normal 6.4-10.8 [facility] Comment on above: Performed By: #### 2 832638, 97357765, 3289440, 67578318 ####[facility] [address] [place] [address] Platelets (Bld) [#/Vol] 234.0 E9/L Normal 150.0-500.0 [facility] Comment on above: Performed By: #### 2 179253, 73569820, 7584246, 20815660 ####[facility] [address] [place] [address] RBC (Bld) [#/Vol] 4.4 E12/L Normal 4.3-5.9 [facility] Comment on above: Performed By: #### 2 658472, 49987238, 7682794, 92427899 ####[facility] [address] [place] [address] WBC corrected for nucl RBC Auto (Bld) [#/Vol] 4.9 E9/L Normal 4.0-11.0 [facility] Comment on above: Performed By: #### 2 784534, 24124921, 9222585, 89534397 ####[facility] [address] [place] [address] CHEMISTRYOrdered By: SYSTEM SYSTEM on 05-11-2023 Albumin [Mass/Vol] 4.2 g/dL Normal 3.3 - 5.0 gm/dL R emisol Chem Albumin/Globulin [Mass ratio] 1.5 {ratio} Normal 1.1 - 2.2 Remisol Chem ALP [Catalytic activity/Vol] 159 [iU]/d High 21 - 98 Int._Unit/L Remisol Chem ALT No additional P-5'-P [Catalytic activity/Vol] 31 [iU]/d Normal 6 - 46 Int._Unit/L Remisol Chem Anion gap [Moles/Vol] 12 mmol/L Normal 6 - 16 mEq/L Remisol Chem AST [Catalytic activity/Vol] 21 [iU]/d Normal 5 - 43 Int._Unit/L Remisol Chem Bilirubin [Mass/Vol] 0.3 mg/dL Normal 0.0 - 1.1 mg/dL Remisol Chem Calcium [Mass/Vol] 9.1 mg/dL Normal 8.9 - 11.1 mg/dL Remisol Chem Chloride [Moles/Vol] 104 mmol/L Normal 101 - 111 mmol/L Remisol Chem CO2 [Moles/Vol] 26 mmol/L Normal 21 - 31 mmol/L Remis ol Chem Creatinine [Mass/Vol] 0.6 mg/dL Normal 0.5 - 1.3 mg/dL Remisol Chem eGFR 93 mL/min/1.73 m2 Normal >=59mL/min/1.73 m2 Remisol Chem Globulin (S) [Mass/Vol] 2.8 g/dL Normal 1.4 - 4.0 gm/dL Remisol Chem Glucose [Mass/Vol] 107 mg/dL Normal 55 - 199 mg/dL Re misol Chem Potassium [Moles/Vol] 4.0 mmol/L Normal 3.5 - 5.3 mmol/L Remisol Chem Protein [Mass/Vol] 7.0 g/dL Normal 6.0 - 7.8 gm/dL R emisol Chem Sodium [Moles/Vol] 138 mmol/L Normal 135 - 145 mmol/L Remisol Chem Urea nitrogen [Mass/Vol] 22 mg/dL High 5 - 21 mg/dL Remisol Chem Urea nitrogen/Creatinine [Mass ratio] 37 mg/mg High 10 - 20 Remisol Chem CMPon 05-11-2023 Albumin [Mass/Vol] 4.2 g/dL Normal 3.3-5.0 [facility] Comment on above: Performed By: #### 2 712806, 06934891, 4390981, 77629510 ####[facility] [address] [place] [address] Albumin/Globulin (S) [Mass conc ratio] 1.5 Normal 1.1-2.2 [facility] Comment on above: Performed By: #### 2 561811, 68192466, 6348046, 75273578 ####[facility] [address] [place] [address] ALP [Catalytic activity/Vol] 159 Int._Unit/L High 21-98 [facility] Comment on above: Performed By: #### 2 054980, 06499557, 3373999, 35690273 ####[facility] [address] [place] [address] ALT No additional P-5'-P [Catalytic activity/Vol] 31 Int._Unit/L Normal 6-46 [facility] Comment on above: Performed By: #### 2 266443, 56735304, 1636256, 55087201 ####[facility] [address] [place] [address] Anion gap [Moles/Vol] 12 mmol/L Normal 6-16 [facility] Comment on above: Performed By: #### 2 587653, 21256328, 9400301, 23621557 ####[facility] [address] [place] [address] AST [Catalytic activity/Vol] 21 Int._Unit/L Normal 5-43 [facility] Comment on above: Performed By: #### 2 574894, 56259111, 3426938, 17688685 ####[facility] [address] [place] [address] Bilirubin [Mass/Vol] 0.3 mg/dL Normal 0.0-1.1 [facility] Comment on above: Performed By: #### 2 659262, 36059840, 3746161, 91844904 ####[facility] [address] [place] [address] Calcium [Mass/Vol] 9.1 mg/dL Normal 8.9-11.1 [facility] Comment on above: Performed By: #### 2 148429, 65562507, 7718497, 35630879 ####[facility] [address] [place] [place] [address] Chloride [Moles/Vol] 104 mmol/L Normal 101-111 [facility] Comment on above: Performed By: #### 2 100247, 47387048, 2336112, 67163496 ####[facility] [address] [place] [address] CO2 [Moles/Vol] 26 mmol/L Normal 21-31 [facility] Comment on above: Performed By: #### 2 500252, 62998652, 1454265, 72442857 ####[facility] [address] [place] [address] Creatinine [Mass/Vol] 0.6 mg/dL Normal 0.5-1.3 [facility] Comment on above: Performed By: #### 2 385209, 14639938, 0831040, 61648759 ####[address] [place] [address] Globulin (S) [Mass/Vol] 2.8 g/dL Normal 1.4-4.0 [facility] Comment on above: Performed By: #### 2 244269, 69827419, 9866150, 15945404 ####[facility] [address] [place] [address] Glucose [Mass/Vol] 107 mg/dL Normal 55-199 [facility] Comment on above: Performed By: #### 2 584564, 74547766, 1653258, 33064208 ####[facility] [address] [place] [address] Potassium [Moles/Vol] 4.0 mmol/L Normal 3.5-5.3 [facility] Comment on above: Performed By: #### 2 449111, 09522072, 2645745, 74056367 ####[facility] [address] [place] [address] Protein [Mass/Vol] 7.0 g/dL Normal 6.0-7.8 [facility] Comment on above: Performed By: #### 2 049568, 35154950, 1363669, 82635359 ####[facility] [address] [place] [address] Sodium [Moles/Vol] 138 mmol/L Normal 135-145 [facility] Comment on above: Performed By: #### 2 732397, 31421494, 4067999, 08814266 ####[facility] [address] [place] [address] Urea nitrogen [Mass/Vol] 22 mg/dL High 5-21 [facility] Comment on above: Performed By: #### 2 415076, 33160259, 0897559, 81560174 ####[facility] [address] [place] [address] Urea nitrogen/Creatinine [Mass ratio] 37 No Units High 10-20 [facility] Comment on above: Performed By: #### 2 369376, 26481811, 9744692, 76060640 ####[facility] [address] [place] [address] COAGULATIONOrdered By: Luanne Gregorio on 05-11-2023 aPTT Coag (PPP) [Time] 33.5 s Normal 25.1 - 36.5 second(s) [facility] Comment on above: Interpretive Data: Delia genao 15 days - 4 weeks 1 - 5 months 6 - 11 months 1 - 5 years 6 - 10 years 11 - 17 years PTT Mean: 35.4 (27.6-45.6) Mean: 33.5 (24.8-40.7) Mean: 32.4 (25.1-40.7) Mean: 31.6 (24.0-39.2) Mean: 31.6 (26.9-38.7) Mean: 31.0 (24.6-38.4) Pediatric Reference ranges were obtained from a study by Baron Jennings et al. prepared from 1437 samples obtained at 7 different centers using the same coagulation reagent and instrumentation as [facility] Currently there are no coagulation studies available worldwide for children to 14 days, and no normal ranges. Heparin therapeutic range (represented by Anti-Factor Xa activity of 0.2 - 0.4 U/mL) corresponds to PTT of 56.6 - 109.0 sec. INR Coag (PPP) [Relative time] 0.89 {INR} Invalid Interpretation Code [facility] Comment on above: Interpretive Data: I NR results are specifically intended to assess patients stabilized on long-term Anticoagulation therapy suggested INR s Less Intensive Anticoagulation 2.0 3.0 Conventional Range 3.0 4.5 PT Coag (PPP) [Time] 10.0 s Normal 9.4 - 12.5 second(s) [facility] Comment on above: Interpretive Data: 1 5 days - 4 weeks 1 - 5 months 6 -11 months 1 5 years 6 10 years 11 -17 years Mean: 11.2 (9.5 12.6) Mean: 11.0 (9.7 12.8) Mean: 11.0 (9.8 13.0) Mean: 11.3 (9.9 13.4) Mean: 11.7 (10.0 14.6) Mean: 11.8 (10.0 - 14.1) Pediatric Reference ranges were obtained from a study by salazar Pollock al. prepared from 1437 samples obtained at 7 different centers using the same coagulation reagent and instrumentation as [facility]. Currently there are no coagulation studies available worldwide for children to 14 days, and no normal ranges. CT Abdomen/Pelvis w/o Portiaa pablo 05-11-2023 CT Abdomen/Pelvis w/o Contrast Exam Date/Time: 05/11/2023 10:22 EST Reason for Exam: Abdominal pain, acute, nonlocalized;Other (please specify) Report IMPRESSION: 5 mm mildly obstructing calculus in the left distal ureter. Additional small nonobstructing bilateral renal calculi. Other findings as discussed. EXAMINATION: CT Abdomen/Pelvis w/o Contrast HISTORY: Abdominal pain, acute, nonlocalized. Hematuria. History of kidney stones. Chronic back pain. History of hysterectomy, appendectomy, gastric bypass, and hernia surgery. TECHNIQUE: Non-IV contrast imaging of the abdomen and pelvis was performed using standard technique, scanning from just above the dome of the diaphragm to the symphysis pubis. Unenhanced imaging is limited for the evaluation of some intra-abdominal and pelvic pathology. Unless otherwise stated, incidental findings in this report do not require further routine follow-up imaging. All CT scans at this facility use dose modulation, iterative reconstruction, and/or weight based dosing when appropriate to reduce radiation dose to as low as reasonably achievable. COMPARISON: None. RESULT: Abdomen / Pelvis: Liver: Probable hepatic steatosis. Probable focal fat deposition adjacent to the gallbladder. No suspicious lesion in the visualized unenhanced liver. Biliary: Gallbladder unremarkable. Pancreas: Diffuse atrophy or fatty infiltration, without duct dilation. Spleen: No splenomegaly. Adrenals: No mass. Kidneys: 5 mm calculus within the left distal ureter, located approximately 5.0 cm proximal to the left ureterovesicular junction. Mild upstream left Report hydroureteronephrosi s. Additional small bilateral renal calculi including 3 mm calculus left lower pole and multiple small 1-3 mm calculi in the right lower pole. No right hydronephrosis. Areas of parenchymal thinning, especially of the right kidney. No suspicious lesions of the unenhanced kidneys. GI Tract: Postsurgical changes involving the stomach. No bowel dilation. Feces throughout the colon. Appendix not visualized, reported appendectomy. Diverticulosis, without evidence for acute diverticulitis. Lymph Nodes: No lymphadenopathy. Mesentery/peritoneum /retroperitoneum: No ascites or mass. Vasculature: Mild arterial atherosclerotic disease without aneurysm. Pelvis: No significant free fluid. Hysterectomy. Bladder decompressed. Post surgical changes from prior ventral hernia repair. Bones/Soft Tissues: No acute osseous findings. Underlying decreased bone mineral density. Degenerative changes. Lower thorax: Unremarkable. Ordering Provider: Melissa Hooks FINAL REPORT Dictated: 05/11/2023 10:42 am Jorge Alberto John MD Signed (Electronic Signature): 05/11/2023 10:42 am Signed by: Jorge Alberto John MD Transcribed by: RAISSA Technologist: RONAK Technical Comments Rectal Contrast Given? No Oral contrast amount in ml's: [address] [facility] Consent for Treatmenton Consent for Treatment [id number] #1.00TIFF Normal [facility] Discharge Instructionson Discharge Instructions [id number]#1.00TIFF Normal [facility] ED Clinical Summaryon 2023 ED Clinical Summary [address] [address] ED Clinical Summary Person Information Name: MILDRED BRAN[place] Age: 77 Years : 1945 Sex: Female Language: Ivorian PCP: Bony Calhoun MD Marital Status: Visit Id: Visit Reason: Hematuria; urinating blood Speciality: Acuity: 3 Enc Type: Emergency Med Service: Emergency Arrival: 05/11/2023 09:11:23 Discharge: 05/11/2023 11:20:12 LOS: 000 02:09 Checkin: 05/11/2023 09:11:23 Checkout: 05/11/2023 11:20:12 Dispo Type: Home (Routine DC) EVENTS: Event Name Event Status Request Date/Time Start Date/Time Complete Date/Time Arrive Complete 05/11/2023 09:11:23 05/11/2023 09:11:23 05/11/2023 09:11:23 Document Home Meds Request 05/11/2023 09:11:23 Triage Complete 05/11/2023 09:11:23 05/11/2023 09:24:01 05/11/2023 09:24:01 Registration Complete 05/11/2023 09:16:55 05/11/2023 09:16:55 05/11/2023 09:16:55 Reg Complete Request 05/11/2023 09:16:55 Reg Bed Request Complete 05/11/2023 09:16:55 05/11/2023 09:16:55 05/11/2023 09:16:55 Bed Assign Complete 05/11/2023 09:19:49 05/11/2023 09:19:49 05/11/2023 09:19:49 Dr Exam Complete 05/11/2023 09:19:49 05/11/2023 09:20:01 05/11/2023 09:20:01 RN Exam Complete 05/11/2023 09:19:49 05/11/2023 09:46:50 05/11/2023 09:46:50 Registration Request 05/11/2023 09:20:01 Pending Labs Complete 05/11/2023 09:31:11 05/11/2023 10:12:14 Lab Complete 05/11/2023 09:31:11 05/11/2023 10:04:32 Urine Collect Complete 05/11/2023 09:31:11 05/11/2023 09:54:12 CT Complete 05/11/2023 09:31:11 05/11/2023 10:06:26 05/11/2023 10:22:22 Pending Labs Complete 05/11/2023 09:43:40 05/11/2023 09:43:40 05/11/2023 10:04:32 Lab Complete 05/11/2023 09:43:40 05/11/2023 09:43:40 05/11/2023 10:04:32 Pending Labs Complete 05/11/2023 09:43:51 05/11/2023 09:43:51 05/11/2023 09:43:51 Discharge Complete 05/11/2023 11:12:14 05/11/2023 11:24:24 05/11/2023 11:24:24 Transfer Complete 05/11/2023 11:24:24 05/11/2023 11:24:24 05/11/2023 11:24:24 ADDRESS: [address] [facility] [id number] PHYS DOC NOTES: MEDICAL INFORMATION: Prescriptions Given: New Medications [id number], [address], [place] [id number], [phone] acetaminophen-oxycod one (Percocet 5 mg-325 mg oral tablet) 1 Tablets By Mouth every 6 hours for 3 Days. Refills: 0. ciprofloxacin (Cipro 500 mg Tab) 1 Tablets By Mouth 2 times a day for 5 Days. Refills: 0. tamsulosin (Flomax 0.4 mg Cap) 1 Capsules By Mouth every day. Take one capsule by mouth daily for four days. Refills: 0. Medications to Continue with No Changes Other Medications alendronate (alendronate 35 mg Tab) 1 Tablets By Mouth every 7 days. Refills: 0. amitriptyline (amitriptyline 10 mg Tab) 40mg at bedtime. Refills: 5. calcium-vitamin D 2 times a day. celecoxib (CeleBREX 200 mg Cap) 200 Milligram By Mouth 2 times a day. Refills: 1. ferrous sulfate (ferrous sulfate 324 mg (65 mg elemental iron) oral enteric coated tablet) By Mouth every day. hydrochlorothiazide (hydrochlorothiazide 12.5 mg Cap) 1 Capsules By Mouth every day. Refills: 1. levothyroxine (levothyroxine 75 mcg (0.075 mg) Tab) 1 Tablets By Mouth every day. Refills: 0. metformin (MetFORMIN (Eqv-Glucophage XR) 500 mg oral tablet, extended release) TAKE 1 TABLET BY MOUTH EVERY DAY. Refills: 0. modafinil 200 Milligram By Mouth once a day (in the morning). half tab. multivitamin (Dosokap oral tablet) 1 Tablets By Mouth every day. Refills: 0. oxybutynin (oxybutynin 5 mg Tab) 1 Tablets By Mouth every day. PATIENT EDUCATION INFORMATION: Instructions: Follow up: With: Address: When: Ronnell LYLE [address] [place] [address], [address], Melon #us[address]elon [address] [place], [place] [id number] [facility] (1) Comments: Call Dr for diagnosis based follow up DIAGNOSIS: Hemorrhagic cystitis; Ureterolithiasis Normal [facility] ED Note-Physicianon 05-11-19 ED Note-Physician Basic Information Time Seen: Melissa Hooks DO 05/11/2023 09:20 Chief Complaint pt states hematuria since waking up today. hx of kidney stones History of Present Illness 77 female presents emergency department with hematuria. Patient states that she woke up today with hematuria and a little bit of discomfort in her lower abdomen and into her back. She states that she has had history of multiple kidney stones in the past is concerned that this has occurred again here today. She reports no nausea or vomiting no fevers no diarrhea or constipation. At times she has been able to pass her kidney stones before and at times she has required lithotripsy. She denies any blood thinning medications. No other aggravating or relieving factors no other associated symptoms no other prior treatments or complaints. Family: Reviewed and noncontributory Social: lives at home Review of systems negative unless otherwise specified in the HPI. Physical Exam Vitals & Measurements T: 36.7 ?C(Oral) HR: 80(Peripheral) RR: 16 BP: 144/61 SpO2: 100% HT: 152 cm WT: 89 kg BMI: 38.52 General: The patient appears well and in no apparent distress. Patient is resting comfortably on cart. Skin: Warm, dry, no pallor noted. Head: Normocephalic, atraumatic Neck: No JVD Eye: PERRLA, EOMI ENT: Moist mucus membranes Cardiovascular: Regular rate normal peripheral perfusion Respiratory: No respiratory distress no accessory muscle use no obvious audible wheezing Chest Wall: no deformity Musculoskeletal: normal ROM, no deformity, no swelling GI: Soft no obvious distention. No rebound or rigidity. No guarding. No tenderness. Neurological: A&O moves all extremities equal strength and symmetry Psychiatric: Cooperative and appropriate Medical Decision Making Urinalysis positive for hematuria the remainder of the labs are benign CT scan does reveal 5 mm stone to the distal left ureter. Patient does feel fine at this time. She is discharged home on Percocet for pain, Flomax to help the stone pass with plenty of fluids, follow-up with urology in the outpatient setting. She will be given Cipro for the next 5 days as well given the vast amount of hematuria with the stone. Assessment/Plan Hemorrhagic cystitis (N30.91: Cystitis, unspecified with hematuria) Ureterolithiasis (N20.1: Calculus of ureter) Ordered: acetaminophen-oxycod one, 1 tab(s), Oral, q6hr for 3 day(s), 10 tab(s), Refill(s) 0, [id number], 152, cm, 05/11/23 9:24:00 EST, Height/Length Dosing, 89, kg, 05/11/23 9:24:00 EST, Weight Dosing Orders: ciprofloxacin, 500 mg = 1 tab(s), Oral, BID, X 5 day(s), # 10 tab(s), Refills(s) 0, Pharmacy: [facility]/pharmacy #[id number], 152, cm, 05/11/23 9:24:00 EST, Height/Length Dosing, 89, kg, 05/11/23 9:24:00 EST, Weight Dosing tamsulosin, 0.4 mg = 1 cap(s), Oral, Daily, Take one capsule by mouth daily for four days, # 4 cap(s), Refills(s) 0, Pharmacy: [facility]/pharmacy #[id number], 152, cm, 05/11/23 9:24:00 EST, Height/Length Dosing, 89, kg, 05/11/23 9:24:00 EST, Weight Dosing CBC w/ Auto Diff Comprehensive Metabolic Panel CT Abdomen/Pelvis w/o Contrast eGFR Extra SST Tube PT & PTT UA With Cult Reflex Disposition Plan Discharge Prescription List Prescriptions Cipro 500 mg Tab, 500 mg= 1 tab(s), Oral, BID Flomax 0.4 mg Cap, 0.4 mg= 1 cap(s), Oral, Daily Percocet 5 mg-325 mg oral tablet, 1 tab(s), Oral, q6hr Follow-up With When Contact Information Ronnell DARIELA In 0 days 05/11/[address] [place]on [address] [place] [id number] [employer] (1) Additional Instructions: Call Dr for diagnosis based follow up Problem List/Past Medical History Ongoing Anemia Anticoagulated Arthritis Back pain Elevated liver enzymes History of UTI HTN (hypertension), benign Hydronephrosis with obstructing calculus Hypercholesterolemia Hyperglycemia Hypersomnia Hypothyroidism Kidney stones Major depressive disorder with single episode, in full remission Metabolic syndrome X Mixed incontinence Morbid obesity Obstructive sleep apnea Osteopenia Taste impairment Ureteral stone with hydronephrosis Historical No qualifying data Procedure/Surgical History ESWL of kidney (07/19/2019), Lithotripsy (04/15/2018), Lithotripsy using laser (04/08/2018), Appendectomy, Colonoscopy, Gastric bypass, Hernia repair, Hysterectomy, Repair of vagina, Stent removal. Medications Inpatient No active inpatient medications Home alendronate 35 mg Tab, 35 mg= 1 tab(s), Oral, q7day amitriptyline 10 mg Tab, See Instructions, 5 refills calcium-vitamin D, BID CeleBREX 200 mg Cap, 200 mg, Oral, BID, 1 refills Dosokap oral tablet, 1 tab(s), Oral, Daily ferrous sulfate 324 mg (65 mg elemental iron) oral enteric coated tablet, Oral, Daily hydrochlorothiazide 12.5 mg Cap, 12.5 mg= 1 cap(s), Oral, Daily, 1 refills levothyroxine 75 mcg (0.075 mg) Tab, 75 mcg= 1 tab(s), Oral, Daily MetFORMIN (Eqv-Glucophage XR) 500 mg oral tablet, extende (more content not included)... Normal [facility] Comment on above: Result Comment: Elec tronically Signed By: Melissa Hooks DO\.br\Date and Time Signed: 05/11/23 11:13 EST ED Patient Education Noteon 05-11-2023 ED Patient Education Note Normal [facility] ED Patient Summaryon 024 ED Patient Summary [address] [address] Patient Discharge Instructions Person Information Name: MILDRED BRAN Age: 77 Years Arrival Date: 05/11/2023 09:11:23 Discharge Diagnosis: Hemorrhagic cystitis; Ureterolithiasis Primary Care Physician: Bony Calhoun MD Provider Information Primary Provider: Melissa Hooks DO Advanced Anchorer:None The exam and treatment you received in the Emergency Department were for an urgent problem and are not intended as complete care. It is important that you follow up with a doctor, nurse practitioner, or physician?s ssn/ssbn assistant navigator for ongoing care. If your symptoms become worse or you do not improve as expected and you are unable to reach your usual health care provider, you should return to the Emergency Department. We are available 24 hours a day. MILDRED BRAN has been given the following list of patient education materials, prescriptions and follow-up instructions: Follow-up Instructions: With: Address: When: Ronnell LYLE [address] [place] [address], [address], [place] [id number] [facility] (1) Comments: Call Dr for diagnosis based follow up In the event that this physician does not participate in your insurance network, please consult with your insurance company to find a nearby participating provider. Patient Education Materials: A MESSAGE TO ALL PATIENTS REGARDING OPIOIDS PRESCRIPTION OPIOIDS: WHAT YOU NEED TO KNOW Prescription opioids can be used to help relieve kglbmfmq-ow-vfodgo pain and are often prescribed following a surgery or injury, or for certain health conditions. These medications can be an important part of the treatment but also come with serious risks. It is important to work with your healthcare provider to make sure you are getting the safest, most effective care. WHAT ARE THE RISKS AND SIDE EFFECTS OF OPIOID USE? Prescription opioids carry serious risks of addiction and overdose, especially with prolonged use. An opioid overdose, often marked by slowed breathing, can cause sudden . The use of prescription opioids can have a number of side effects as well, even when taken as directed: ? Tolerance?meaning you might need to take more of the medication for the same pain relief ? Physical dependence?meaning you have symptoms of withdrawal when a medication is stopped ? Increased sensitivity to pain ? Constipation ? Nausea, vomiting, and dry mouth ? Sleepiness and dizziness ? Confusion ? Depression ? Low levels of testosterone that can result in lower sex drive, energy, and strength ? Itching and sweating RISKS ARE GREATER WITH: ? History of drug misuse, substance use disorder, or overdose ? Mental health conditions (such as depression or anxiety) ? Sleep apnea ? Older age (65 years and older) ? Avoid alcohol while taking prescription opioids. Also, unless specifically advised by your health care provider, medications to avoid include: ? Benzodiazepines (such as Xanax or Valium) ? Muscle relaxants (such as Soma or Flexeril) ? Hypnotics (such as Ambien or Lunesta) ? Other prescription opioids KNOW YOUR OPTIONS Talk to your health care provider about ways to manage your pain that don?t involve prescription opioids. Some of these options may actually work better and have fewer risks and side effects. Options may include: ? Pain relievers such as acetaminophen, ibuprofen, and naproxen ? Some medication that are also used for depression or seizures ? Physical therapy and exercise ? Cognitive behavioral therapy, a psychological, goal-directed approach, in which patients learn how to modify physical, behavioral, and emotional triggers of pain and stress. IF YOU ARE PRESCRIBED OPIOIDS FOR PAIN: ? Never take opioids in greater amounts or more often than prescribed. ? Follow up with your primary health care provider. o Work together to create a plan on how to manage your pain. o Talk about ways to help manage your pain that don?t involve prescription opioids. o Talk about any and all concerns and side effects. ? Help prevent misuse and abuse o Never sell or share prescription opioids. o Never use another person?s prescription opioids. ? Store prescription opioids in a secure place and out of reach of others (this may include visitors, children, friends, and family). ? Safely dispose of unused prescription opioids: Find your community drug take-back program or your pharmacy mail-back program, or flush them down the toilet, following guidance from the Food and Drug Administration (www.fda.gov/Drugs/R esourcesForYou). ? Visit www.cdc.gov/drugover dose to learn about the risks of opioids abuse and overdose. ? If you believe you may be struggling with addiction, tell your health daycare director and ask for guidance or call [facility]?S National Helpline at 4-221-024-LSUQ. (more content not included)... Normal [facility] HEMATOLOGYOrdered By: SYSTEM SYSTEM on 05-11-2023 Basophils/100 WBC (Bld) 0.8 % Normal 0.0 - 2.0 % Remisol Heme Basophils/Leukocyte s Auto (Bld) [Pure # fraction] 0.0 E9/L Normal 0.0 - 0.2 E9/L Remisol Heme Eosinophils (Bld) [#/Vol] 0.1 E9/L Normal 0.0 - 0.5 E9/L Remisol Heme Eosinophils/100 WBC (Bld) 1.9 % Normal 0.0 - 8.0 % Remisol Heme Erythrocyte distribution width (RBC) [Ratio] 13.1 % Normal 10.9 - 14.2 % Remisol Heme Hematocrit (Bld) [Volume fraction] 39.9 % Normal 34.0 - 46.0 % Remisol Heme Hemoglobin (Bld) [Mass/Vol] 13.1 g/dL Normal 12.0 - 16.0 gm/dL Remisol Heme Lymphocytes (Bld) [#/Vol] 1.5 E9/L Normal 1.0 - 4.0 E9/L Remisol Heme Lymphocytes/100 WBC (Bld) 30.1 % Normal 14.0 - 50.0 % Remisol Heme MCH (RBC) [Entitic mass] 29.7 pg Normal 27.0 - 34.0 pg Remisol Heme MCHC (RBC) [Mass/Vol] 32.8 g/dL Normal 31.4 - 36.0 gm/dL Remisol Heme MCV (RBC) [Entitic vol] 90.8 fL Normal 80.0 - 100.0 fL Remisol Heme Monocytes (Bld) [#/Vol] 0.4 E9/L Normal 0.2 - 1.0 E9/L Remisol Heme Monocytes/100 WBC (Bld) 8.7 % Normal 4.0 - 14.0 % Remisol Heme Neutrophils (Bld) [#/Vol] 2.9 E9/L Normal 2.0 - 7.5 E9/L Remisol Heme Neutrophils/100 WBC (Bld) 58.5 % Normal 36.0 - 75.0 % Remisol Heme Platelet mean volume (Bld) [Entitic vol] 8.0 fL Normal 6.4 - 10.8 fL Remisol Heme Platelets (Bld) [#/Vol] 234.0 E9/L Normal 150.0 - 500.0 E9/L Remisol Heme RBC (Bld) [#/Vol] 4.4 E12/L Normal 4.3 - 5.9 E12/L Re misol Heme WBC corrected for nucl RBC Auto (Bld) [#/Vol] 4.9 E9/L Normal 4.0 - 11.0 E9/L Remisol Heme PT & PTTon 05-11-2023 aPTT Coag (PPP) [Time] 33.5 second(s) Normal 25.1-36.5 [facility] Comment on above: Result Comment: Para meter 15 days - 4 weeks 1 - 5 months 6 - 11 months 1 - 5 years 6 - 10 years 11 - 17 years PTT Mean: 35.4 (27.6-45.6) Mean: 33.5 (24.8-40.7) Mean: 32.4 (25.1-40.7) Mean: 31.6 (24.0-39.2) Mean: 31.6 (26.9-38.7) Mean: 31.0 (24.6-38.4) Pediatric Reference ranges were obtained from a study by Baron Jennings et al. prepared from 1437 samples obtained at 7 different centers using the same coagulation reagent and instrumentation as [facility]. Currently there are no coagulation studies available worldwide for children to 14 days, and no normal ranges. Heparin therapeutic range (represented by Anti-Factor Xa activity of 0.2 - 0.4 U/mL) corresponds to PTT of 56.6 - 109.0 sec. Performed By: #### 2 [id number], [id number], [id number], [id number] ####[facility] [address] [place] [address] INR Coag (PPP) [Relative time] 0.89 {INR} Invalid Interpretation Code [facility] Comment on above: Result Comment: INR results are specifically intended to assess patients stabilized on long-term Anticoagulation therapy suggested INR?s ?Less Intensive Anticoagulation? 2.0 ? 3.0 Conventional Range 3.0 ? 4.5 Performed By: #### 2 [id number], [id number], [id number], [id number] ####[facility] [address] [place] [address] PT Coag (PPP) [Time] 10.0 second(s) Normal 9.4-12.5 [facility] Comment on above: Result Comment: 15 d ays - 4 weeks 1 - 5 months 6 -11 months 1 ? 5 years 6 ? 10 years 11 -17 years Mean: 11.2 (9.5 ? 12.6) Mean: 11.0 (9.7 ? 12.8) Mean: 11.0 (9.8 ? 13.0) Mean: 11.3 (9.9 ? 13.4) Mean: 11.7 (10.0 ? 14.6) Mean: 11.8 (10.0 - 14.1) Pediatric Reference ranges were obtained from a study by Baron Jennings et al. prepared from 1437 samples obtained at 7 different centers using the same coagulation reagent and instrumentation as [facility]. Currently there are no coagulation studies available worldwide for children to 14 days, and no normal ranges. Performed By: #### 2 [id number], [id number], [id number], [id number] ####[facility] [address] [place] [address] UA With Cult Reflexon 2023 Bacteria LM Ql (Urine sed) TRACE Normal Trace [facility] Comment on above: Performed By: #### 1 [id number] ####[facility] [address] [place] [address] Bilirubin Ql (U) 2+ Abnormal Negative [facility] Comment on above: Performed By: #### 1 [id number] ####[facility] [address] [place] [address] Clarity (U) CLOUDY Abnormal Clear [facility] Comment on above: Performed By: #### 1 [id number] ####[facility] [address] [place] [address] Color (U) BROWN Invalid Interpretation Code [facility] Comment on above: Performed By: #### 1 [id number] ####[facility] [address] [place] [address] Crystals LM Ql (Urine sed) Present Normal [facility] Comment on above: Performed By: #### 1 [id number] ####[address] [address] Epithelial cells.squamous LM.HPF (Urine sed) [#/Area] 0-2 Normal 0-2 [facility] Comment on above: Performed By: #### 1 [id number] ####[address] [address] Glucose Test strip (U) [Mass/Vol] Negative Normal Negative [facility] Comment on above: Performed By: #### 1 [id number] ####[address] [address] Hemoglobin Ql (U) 3+ Abnormal Negative [facility] Comment on above: Performed By: #### 1 [id number] ####[facility] [address] [place] [address] Ketones (U) [Mass/Vol] TRACE Invalid Interpretation Code Negative [facility] Comment on above: Performed By: #### 1 [id number] ####[facility] [address] [place] [address] [place].plasma/Lith ium.RBC (Bld) [Mass ratio] >75 Abnormal 0-3 [facility] Comment on above: Performed By: #### 1 [id number] ####[address] [address] Mucus Ql (Urine sed) TRACE Normal [facility] Comment on above: Performed By: #### 1 [id number] ####[facility] [address] [place] [address] Nitrite Ql (U) Negative Normal Negative [facility] Comment on above: Performed By: #### 1 [id number] ####[address] [address] pH (U) 5.5 [pH] Invalid Interpretation Code 5.0-9.0 [facility] Comment on above: Performed By: #### 1 [id number] ####[address] [address] Protein (U) [Mass/Vol] 2+ Abnormal Negative [facility] Comment on above: Performed By: #### 1 [id number] ####[address] [address] Specific gravity (U) [Rel density] 1.025 Invalid Interpretation Code 1.005-1.030 [facility] Comment on above: Performed By: #### 1 [id number] ####[address] [address] Type of Urine collection method Clean Catch Normal [facility] Comment on above: Performed By: #### 1 [id number] ####[address] [address] Urobilinogen Qn (U) 1.0 {Parvin'U}/dL Normal 0.0-1.0 [facility] Comment on above: Performed By: #### 1 [id number] ####[address] [address] WBC Auto Ql (U) Negative Normal Negative [facility] Comment on above: Performed By: #### 1 [id number] ####[address] [address] WBC LM.HPF (Urine sed) [#/Area] 0-5 Normal 0-5 [facility] Comment on above: Performed By: #### 1 [id number] ####[address] [address] URINALYSISOrdered By: Frank Gregorio on 05-11-2023 Bacteria LM Ql (Urine sed) Trace /HPF Normal Trace/HPF [facility] UA Auto SS Bilirubin Ql (U) 2+ *ABN* (05/11/23 9:34 AM) Invalid Interpretation Code Negative [facility] UA Auto SS Clarity (U) Cloudy *ABN* (05/11/23 9:34 AM) Invalid Interpretation Code Clear [facility] UA Auto SS Color (U) BROWN Invalid Interpretation Code [facility] UA Auto SS Crystals LM Ql (Urine sed) Present (05/11/23 9:34 AM) Normal [facility] UA Auto SS Epithelial cells.squamous LM.HPF (Urine sed) [#/Area] 0-2 /HPF Normal 0-2/HPF [facility] UA Auto SS Glucose Test strip (U) [Mass/Vol] Negative (05/11/23 9:34 AM) Normal Negative [facility] UA Auto SS Hemoglobin Ql (U) 3+ *ABN* (05/11/23 9:34 AM) Invalid Interpretation Code Negative [facility] UA Auto SS Ketones (U) [Mass/Vol] Trace *NA* (05/11/23 9:34 AM) Invalid Interpretation Code Negative [facility] UA Auto SS [place].plasma/Lith ium.RBC (Bld) [Mass ratio] >75 /HPF Invalid Interpretation Code 0-3/HPF [facility] UA Auto SS Mucus Ql (Urine sed) Trace (05/11/23 9:34 AM) Normal [facility] UA Auto SS Nitrite Ql (U) Negative (05/11/23 9:34 AM) Normal Negative [facility] UA Auto SS pH (U) 5.5 *NA* (05/11/23 9:34 AM) Invalid Interpretation Code 5.0 - 9.0 [facility] UA Auto SS Protein (U) [Mass/Vol] 2+ *ABN* (05/11/23 9:34 AM) Invalid Interpretation Code Negative [facility] UA Auto SS Specific gravity (U) [Rel density] 1.025 *NA* (05/11/23 9:34 AM) Invalid Interpretation Code 1.005 - 1.030 [facility] UA Auto SS UA Spec Desc Clean Catch (05/11/23 9:34 AM) Normal [facility] UA Auto SS Urobilinogen Qn (U) 1.6564090 {Parvin'U}/dL Normal 0.0 - 1.0 EU/dL [facility] UA Auto SS WBC Auto Ql (U) Negative (05/11/23 9:34 AM) Normal Negative [facility] UA Auto SS WBC LM.HPF (Urine sed) [#/Area] 0-5 /HPF Normal 0-5/HPF [facility] UA Auto SS eGFRon 05-11-2023 eGFR 93 mL/min/1.73 m2 Normal >=59 [facility] Comment on above: Order Comment: Order added by Discern Expert. Performed By: #### 2 [id number], [id number], [id number], [id number] ####[facility] [address] [place] [address] Ambulatory Visit Summaryon 0 03-30-2023 Ambulatory Visit Summary MILDRED BRAN :1945 Visit Date:03/30/2023 Ambulatory Visit Instructions Your Diagnosis HTN (hypertension), benign Hypothyroidism Hypersomnia Obstructive sleep apnea BMI 38.0-38.9,adult Class 1 obesity due to excess calories in adult Nonsmoker Morbid obesity Hyperglycemia Your Care Team Attending Physician - Bony Calhoun MD Primary Care Physician - Bony Calhoun MD This Is Your Medications List alendronate (alendronate 35 mg Tab) amitriptyline (amitriptyline 10 mg Tab) calcium-vitamin D celecoxib (CeleBREX 200 mg Cap) ferrous sulfate (ferrous sulfate 324 mg (65 mg elemental iron) oral enteric coated tablet) hydrochlorothiazide (hydrochlorothiazide 12.5 mg Cap) levothyroxine (levothyroxine 75 mcg (0.075 mg) Tab) metformin (MetFORMIN (Eqv-Glucophage XR) 500 mg oral tablet, extended release) modafinil multivitamin (Dosokap oral tablet) multivitamin, ( Multivitamins) oxybutynin (oxybutynin 5 mg Tab) Procedures Performed ESWL of kidney (07/19/2019), Lithotripsy (04/15/2018), Lithotripsy using laser (04/08/2018), Appendectomy, Colonoscopy, Gastric bypass, Hernia repair, Hysterectomy, Repair of vagina, Stent removal. Discharge Vitals Temperature (Oral) 36.7 ?C Heart Rate (Peripheral) 84 Respiratory Rate 16 Blood Pressure 136/82 Height 152 cm Height 60 in Weight 88.45 kg Weight 194.59 lb BMI 38.28 What to do next Scheduled Follow-Up Appointments Thursday 10:30 AM EDT With: Lj RODRIGUEZ, Bony Roberts Where: [facility] Normal [address] [place] [id number]- \.br\ Medications\.br\ What How Much When Why Instructions\.br\ Unchanged alendronate (alendronate 35 mg Tab) 1 Tablets By Mouth Every 7 days Osteopenia HTN (hypertension), benign Major depressive disorder with single episode, in full remission Hyperglycemia Kidney stones Back pain\.br\ Unchanged amitriptyline (amitriptyline 10 mg Tab) See instructions 40mg at bedtime \.br\ Unchanged calcium-vitamin D 2 times a day\.br\ Unchanged celecoxib (CeleBREX 200 mg Cap) 200 Milligram By Mouth 2 times a day\.br\ Unchanged ferrous sulfate (ferrous sulfate 324 mg (65 mg elemental iron) oral enteric coated tablet) By Mouth Every day\.br\ Unchanged hydrochlorothiazide (hydrochlorothiazide 12.5 mg Cap) 1 Capsules By Mouth Every day\.br\ Unchanged levothyroxine (levothyroxine 75 mcg (0.075 mg) Tab) 1 Tablets By Mouth Every day\.br\ Unchanged metformin (MetFORMIN (Eqv-Glucophage XR) 500 mg oral tablet, extended release) See instructions TAKE 1 TABLET BY MOUTH EVERY DAY \.br\ Unchanged modafinil 200 Milligram By Mouth Once a day (in the morning) half tab \.br\ Unchanged multivitamin (Dosokap oral tablet) 1 Tablets By Mouth Every day Osteopenia HTN (hypertension), benign Major depressive disorder with single episode, in full remission Hyperglycemia Kidney stones Back pain\.br\ Unchanged multivitamin, ( Multivitamins) 1 Tablets By Mouth Every day\.br\ Unchanged oxybutynin (oxybutynin 5 mg Tab) 1 Tablets By Mouth Every day\.br\ Allergies\.br\ Benzoin (Blisters)\.br\ albuterol (Difficulty breathing)\.br\ Keflex (Unknown)\.br\ Tape (Blisters)\.br\ cephalexin (Anaphylaxis)\.br\ Problems\.br\ Ongoing - Any problem that you are currently receiving treatment for.\.br\ Anemia\.br\ Anticoagulated\.br\ Arthritis\.br\ Back pain\.br\ Elevated liver enzymes\.br\ History of UTI\.br\ HTN (hypertension), benign\.br\ Hydronephrosis with obstructing calculus\.br\ Hypercholesterolemia \.br\ Hyperglycemia\.br\ Hypersomnia\.br\ Hypothyroidism\.br\ Kidney stones\.br\ Major depressive disorder with single episode, in full remission\.br\ Metabolic syndrome X\.br\ Mixed incontinence\.br\ Morbid obesity\.br\ Obstructive sleep apnea\.br\ Osteopenia\.br\ Taste impairment\.br\ Ureteral stone with hydronephrosis\.br\ Patient Survey\.br\ You may receive a survey via text or e-mail asking about your office visit. Please share your experience with us by completing your survey. We appreciate your feedback and thank you for choosing us for your care.\.br\ \.br\ [facility] Family Medicine Office/Clini c Noteon 03-30-2023 Family Medicine Office/Clinic Note HPI Staff Mildred is a 77 year old female presenting for 3 month follow up htn, thyroid, ROSARIO Patient is here for follow up on hypertension. How often are you checking your blood pressure? Doesnt check BP at home What are your average readings? N/A, Not checking at home Yearly BMP: 12/22/22 Patient is here for follow up on Thyroid Disease. Do you have any of the following symptoms? Change in energy level? no Weight change? no Heat/cold intolerance? no Hair/skin/nail changes? no Change in bowels? no Last TSH: TSH: 0.83 mcIU/mL (12/22/22 12:01:00) flu: UTD 02/17/23 questions/concerns: needs her levothyroxine refilled Her BP was quite high at home this morning, she checked it and says she's felt flushed like she's too warm recently History of Present Illness - See staff HPI. Review of Systems PHQ Score Initial Depression Screen Score: 0 SCORE Physical Exam Vitals & Measurements T: 36.7 ?C(Oral) HR: 84(Peripheral) RR: 16 BP: 136/82 SpO2: 96% HT: 60 in HT: 152 cm WT: 88.45 kg WT: 194.59 lb BMI: 38.28 General: alert, no acute distress ENMT: oral mucosa moist, Cardiovascular: regular rate and rhythm, normal peripheral perfusion Respiratory: Lungs CTA, respirations non labored Extremities: no deformity, no trauma Neurological: oriented x 4, LOC appropriate for age, CN II-XII intact, motor strength equal & normal bilaterally, speech normal Abdomen: Soft, Nontender, Non-distended, + BS Assessment/Plan 1. HTN (hypertension), benign (I10: Essential (primary) hypertension) - No issues today. - Unsure why it was high at home - Was improving at home as well. Ordered: alendronate, 35 mg = 1 tab(s), Oral, q7day, # 12 tab(s), Refills(s) 0, Pharmacy: [facility]/pharmacy #[id number], 152, cm, 03/30/23 10:10:00 EST, Height/Length Dosing, 88.5, kg, 03/30/23 10:10:00 EST, Weight Dosing Body Mass Index (BMI) documented 3008F Current tobacco non-user 1036F Depression Screening Negative 3352F Influenza immunization administered or previously received 4274F Most recent diastolic blood pressure 80-89 mm Hg 3079F Patient screen for fall risk: no falls in last year or 1 fall with no injury in last year 1101F Systolic BP 130-139 mm Hg (Most Recent) 3075F 2. Hypothyroidism (E03.9: Hypothyroidism, unspecified) - At goal today. - No issues at this time. Ordered: Body Mass Index (BMI) documented 3008F Current tobacco non-user 1036F Depression Screening Negative 3352F Influenza immunization administered or previously received 4274F Most recent diastolic blood pressure 80-89 mm Hg 3079F Patient screen for fall risk: no falls in last year or 1 fall with no injury in last year 1101F Systolic BP 130-139 mm Hg (Most Recent) 3075F 3. Hypersomnia (G47.10: Hypersomnia, unspecified) - Doing well on the modafinil. - NO issues at this time. Ordered: Body Mass Index (BMI) documented 3008F Current tobacco non-user 1036F Depression Screening Negative 3352F Influenza immunization administered or previously received 4274F Most recent diastolic blood pressure 80-89 mm Hg 3079F Patient screen for fall risk: no falls in last year or 1 fall with no injury in last year 1101F Systolic BP 130-139 mm Hg (Most Recent) 3075F 4. Obstructive sleep apnea (G47.33: Obstructive sleep apnea (adult) (pediatric)) - Does not use a CPAP. - Pt has Bipap at home. Ordered: Body Mass Index (BMI) documented 3008F Current tobacco non-user 1036F Depression Screening Negative 3352F Influenza immunization administered or previously received 4274F Most recent diastolic blood pressure 80-89 mm Hg 3079F Patient screen for fall risk: no falls in last year or 1 fall with no injury in last year 1101F Systolic BP 130-139 mm Hg (Most Recent) 3075F 5. BMI 38.0-38.9,adult (Z68.38: Body mass index [BMI] 38.0-38.9, adult) - BMI education given Ordered: Body Mass Index (BMI) documented 3008F Current tobacco non-user 1036F Depression Screening Negative 3352F Influenza immunization administered or previously received 4274F Most recent diastolic blood pressure 80-89 mm Hg 3079F Patient screen for fall risk: no falls in last year or 1 fall with no injury in last year 1101F Systolic BP 130-139 mm Hg (Most Recent) 3075F 6. Class 1 obesity due to excess calories in adult (E66.09: Other obesity due to excess calories) - Diet and exercise advised Ordered: Body Mass Index (BMI) documented 3008F Current tobacco non-user 1036F Depression Screening Negative 3352F Influenza immunization administered or previously received 4274F Most recent diastolic blood pressure 80-89 mm Hg 3079F Patient screen for fall risk: no falls in last year or 1 fall with no injury in last year 1101F Systolic BP 130-139 mm Hg (Most Recent) 3075F 7. Nonsmoker (Z78.9: Other specified health status) - Please continue to not smoke. Ordered: Body Mass Index (BMI) documented 3008F Current tobacco non-user 1036F Depression Screening Negati (more content not included)... Normal [facility] Comment on above: Result Comment: Elec tronically Signed By: Lj RODRIGUEZ, Bony Roberts\.br\Date and Time Signed: 03/30/23 10:51 EST Patient Educationon 03-30-19 Patient Education Nutrition BMI for Adults What is BMI? Body mass index (BMI) is a number that is calculated from a person's weight and height. BMI can help estimate how much of a person's weight is composed of fat. BMI does not measure body fat directly. Rather, it is an alternative to procedures that directly measure body fat, which can be difficult and expensive. BMI can help identify people who may be at higher risk for certain medical problems. What are BMI measurements used for? BMI is used as a screening tool to identify possible weight problems. It helps determine whether a person is obese, overweight, a healthy weight, or underweight. BMI is useful for: ? Identifying a weight problem that may be related to a medical condition or may increase the risk for medical problems. ? Promoting changes, such as changes in diet and exercise, to help reach a healthy weight. BMI screening can be repeated to see if these changes are working. How is BMI calculated? BMI involves measuring your weight in relation to your height. Both height and weight are measured, and the BMI is calculated from those numbers. This can be done either in [place] ([place] or metric measurements. Note that charts and online BMI calculators are available to help you find your BMI quickly and easily without having to do these calculations yourself. To calculate your BMI in [place] ([place] measurements: 1. Measure your weight in pounds (lb). 2. Multiply the number of pounds by 703. ? For example, for a person who weighs 180 lb, multiply that number by 703, which equals 126,540. 3. Measure your height in inches. Then multiply that number by itself to get a measurement called inches squared. ? For example, for a person who is 70 inches tall, the inches squared measurement is 70 inches x 70 inches, which equals 4,900 inches squared. 4. Divide the total from step 2 (number of lb x 703) by the total from step 3 (inches squared): 126,540 ? 4,900 = 25.8. This is your BMI. To calculate your BMI in metric measurements: 1. Measure your weight in kilograms (kg). 2. Measure your height in meters (m). Then multiply that number by itself to get a measurement called meters squared. ? For example, for a person who is 1.75 m tall, the meters squared measurement is 1.75 m x 1.75 m, which is equal to 3.1 meters squared. 3. Divide the number of kilograms (your weight) by the meters squared number. In this example: 70 ? 3.1 = 22.6. This is your BMI. What do the results mean? BMI charts are used to identify whether you are underweight, normal weight, overweight, or obese. The following guidelines will be used: ? Underweight: BMI less than 18.5. ? Normal weight: BMI between 18.5 and 24.9. ? Overweight: BMI between 25 and 29.9. ? Obese: BMI of 30 or above. Keep these notes in mind: ? Weight includes both fat and muscle, so someone with a muscular build, such as an athlete, may have a BMI that is higher than 24.9. In cases like these, BMI is not an accurate measure of body fat. ? To determine if excess body fat is the cause of a BMI of 25 or higher, further assessments may need to be done by a health care provider. ? BMI is usually interpreted in the same way for men and women. Where to find more information For more information about BMI, including tools to quickly calculate your BMI, go to these websites: ? Centers for Disease Control and Prevention: www.cdc.gov ? [place] [employer] Association: www.heart.org ? National Heart, Lung, and Blood [place]: www.nhlbi.nih.gov Summary ? Body mass index (BMI) is a number that is calculated from a person's weight and height. ? BMI may help estimate how much of a person's weight is composed of fat. BMI can help identify those who may be at higher risk for certain medical problems. ? BMI can be measured using Ivorian measurements or metric measurements. ? BMI charts are used to identify whether you are underweight, normal weight, overweight, or obese. This information is not intended to replace advice given to you by your health care provider. Make sure you discuss any questions you have with your health care provider. Document Revised: 11/16/2019 Document Reviewed: 09/23/2019 [employer] Patient Education ? 2022 [employer] [facility] Family Medicine Office/Clini c Rashida 02-24-2023 Family Medicine Office/Clinic Note HPI Staff Mildred is a 77 year old female presenting for follow up dexascan results Dexa showed osteopenia, here to discuss treatment options, can't take calcium due to kidney stones flu: UTD questions/concerns: stopped her prozac and doing okay History of Present Illness Mildred Bran is a 77-year-old female who presents today for a follow-up evaluation of hypertension. The patient reports she has discontinued taking hydrochlorothiazide following a recommendation to see her urologist. She states she does not have regular contact with her urologist and that when the prescription needed to be refilled the process was inconsistent; sometimes it was completed, other times it was not. She is currently on a regimen of 10,000 IU of Vitamin D. She acknowledges a slight elevation in her blood pressure today, which she claims is atypical for her. She also mentions experiencing blood pressure fluctuations. Review of Systems PHQ Score Initial Depression Screen Score: 2 SCORE Physical Exam Vitals & Measurements T: 37.4 ?C(Temporal Artery) HR: 82(Peripheral) RR: 16 BP: 130/80 SpO2: 95% HT: 60 in HT: 152 cm WT: 89.7 kg WT: 197.34 lb BMI: 38.82 General: alert, no acute distress Cardiovascular: regular rate and rhythm, normal peripheral perfusion Respiratory: Lungs CTA, respirations non labored Extremities: no deformity, no trauma Neurological: oriented x 4, LOC appropriate for age, CN II-XII intact, motor strength equal & normal bilaterally, speech normal Musculoskeletal: Patient is tender to palpation in the paraspinal muscle on the left. Assessment/Plan 1. Osteopenia (M85.80: Other specified disorders of bone density and structure, unspecified site) At this time, we are going to use a bisphosphonate and use Dosokap to help move the calcium into the bone. The patient will follow up on a regular basis for this. 2. HTN (hypertension), benign (I10: Essential (primary) hypertension) Because of the osteopenia and the history of kidney stones, we will refill the patient's hydrochlorothiazide to help absorb that calcium back. The patient is aware of this and will continue as before. 3. Major depressive disorder with single episode, in full remission (F32.5: Major depressive disorder, single episode, in full remission) The patient is off the Prozac and states she is doing well. No concerns at this time. 4. Hyperglycemia (R73.9: Hyperglycemia, unspecified) We will do a point of care A1c to see if the patient's metformin is helping at all. We will move forward with treatment or adjust medications based off that A1c. 5. Kidney stones (N20.0: Calculus of kidney) No problem with kidney stones at this time, but we will go back on the hydrochlorothiazide to present the kidney stones given the osteopenia. 6. Back pain (M54.9: Dorsalgia, unspecified) Most likely musculoskeletal. Patient is tender to palpation in the paraspinal muscle on the left. Advised stretching and Biofreeze. ATTESTATION: Portions of this record may have been created with voice recognition artificial intelligence software, specifically [employer], [employer] and or [employer]. Substitutions may have occurred due to the inherent limitations of voice recognition and artificial intelligence software. Documentation services were performed after patient or guardian consented to allow [employer] to record this visit. [employer] retail performance specialist and provider reviewed before signing. SAEED: Chloe Lauren. Follow-up No qualifying data available Problem List/Past Medical History Ongoing Anemia Anticoagulated Arthritis Back pain BMI 40.0-44.9, adult Elevated liver enzymes History of UTI HTN (hypertension), benign Hydronephrosis with obstructing calculus Hypercholesterolemia Hyperglycemia Hypersomnia Hypothyroidism Kidney stones Major depressive disorder with single episode, in full remission Metabolic syndrome X Mixed incontinence Morbid obesity Obstructive sleep apnea Osteopenia Taste impairment Ureteral stone Ureteral stone with hydronephrosis Historical No qualifying data Procedure/Surgical History ESWL of kidney (07/19/2019), Lithotripsy (04/15/2018), Lithotripsy using laser (04/08/2018), Appendectomy, Colonoscopy, Gastric bypass, Hernia repair, Hysterectomy, Repair of vagina, Stent removal. Medications alendronate 35 mg Tab, 35 mg= 1 tab(s), Oral, q7day amitriptyline 10 mg Tab, See Instructions, 5 refills calcium-vitamin D, BID CeleBREX 200 mg Cap, 200 mg, Oral, BID, 1 refills Dosokap oral tablet, 1 tab(s), Oral, Daily ferrous sulfate 324 mg (65 mg elemental iron) oral enteric coated tablet, Oral, Daily Glucophage XR 500 mg Tab-ER, 500 mg= 1 tab(s), Oral, Daily hydrochlorothiazide 12.5 mg Cap, 12.5 mg= 1 cap(s), Oral, Daily, 1 refills levothyroxine 75 mcg (0.075 mg) Tab, 75 mcg= 1 tab(s), Oral, Daily modafinil, 200 mg, Oral, qAM oxybutynin 5 mg Tab, 5 mg= 1 tab(s), Oral, (more content not included)... Normal [facility] Comment on above: Result Comment: Elec tronically Signed By: Bony Calhoun MD\.br\Date and Time Signed: 02/24/23 08:47 EST\.br\Electronically Co-Signed By: Nael Quintanilla Jr\.br\Date and Time Co-Signed: 02/23/23 19:04 EST Ambulatory Visit Summaryon 1 04-26-2022 Ambulatory Visit Summary MILDRED BRAN :1945 Visit Date:02/23/2023 Ambulatory Visit Instructions Your Diagnosis Osteopenia HTN (hypertension), benign Major depressive disorder with single episode, in full remission Hyperglycemia Kidney stones Back pain Your Care Team Attending Physician - Bony Calhoun MD Primary Care Physician - Bony Calhoun MD This Is Your Medications List alendronate (alendronate 35 mg Tab) hydrochlorothiazide (hydrochlorothiazide 12.5 mg Cap) multivitamin (Dosokap oral tablet) Contact prescribing physician if questions or concerns amitriptyline (amitriptyline 10 mg Tab) calcium-vitamin D celecoxib (CeleBREX 200 mg Cap) ferrous sulfate (ferrous sulfate 324 mg (65 mg elemental iron) oral enteric coated tablet) levothyroxine (levothyroxine 75 mcg (0.075 mg) Tab) metformin (Glucophage XR 500 mg Tab-ER) modafinil multivitamin, ( Multivitamins) oxybutynin (oxybutynin 5 mg Tab) [Image Removed: STOP]Stop taking these medications fluoxetine (FLUoxetine 40 mg Cap) Procedures Performed ESWL of kidney (07/19/2019), Lithotripsy (04/15/2018), Lithotripsy using laser (04/08/2018), Appendectomy, Colonoscopy, Gastric bypass, Hernia repair, Hysterectomy, Repair of vagina, Stent removal. Discharge Vitals Temperature (Temporal Artery) 37.4 ?C Heart Rate (Peripheral) 82 Respiratory Rate 16 Blood Pressure 130/80 Height 152 cm Height 60 in Weight 89.7 kg Weight 197.34 lb BMI 38.82 What to do next Scheduled Follow-Up Appointments Thursday 10:00 AM EST With: Lj RODRIGUEZ, Bony Roberts Where: [facility] [address] [place] [address]- \.br\ Medications\.br\ What How Much When Why Instructions\.br\ New alendronate (alendronate 35 mg Tab) 1 Tablets By Mouth Every 7 days Osteopenia HTN (hypertension), benign Major depressive disorder with single episode, in full remission Hyperglycemia Kidney stones Back pain Pickup at [facility]/pharmacy #[id number]\.br\ New multivitamin (Dosokap oral tablet) 1 Tablets By Mouth Every day Osteopenia HTN (hypertension), benign Major depressive disorder with single episode, in full remission Hyperglycemia Kidney stones Back pain Pickup at [facility]/pharmacy #[id number]\.br\ Unchanged hydrochlorothiazide (hydrochlorothiazide 12.5 mg Cap) 1 Capsules By Mouth Every day Pickup at [facility]/pharmacy #[id number]\.br\ Unchanged amitriptyline (amitriptyline 10 mg Tab) See instructions 40mg at bedtime Contact prescribing physician if questions or concerns \.br\ Unchanged calcium-vitamin D 2 times a day Contact prescribing physician if questions or concerns \.br\ Unchanged celecoxib (CeleBREX 200 mg Cap) 200 Milligram By Mouth 2 times a day Contact prescribing physician if questions or concerns \.br\ Unchanged ferrous sulfate (ferrous sulfate 324 mg (65 mg elemental iron) oral enteric coated tablet) By Mouth Every day Contact prescribing physician if questions or concerns \.br\ Unchanged levothyroxine (levothyroxine 75 mcg (0.075 mg) Tab) 1 Tablets By Mouth Every day Contact prescribing physician if questions or concerns \.br\ Unchanged metformin (Glucophage XR 500 mg Tab-ER) 1 Tablets By Mouth Every day Contact prescribing physician if questions or concerns \.br\ Unchanged modafinil 200 Milligram By Mouth Once a day (in the morning) half tab Contact prescribing physician if questions or concerns \.br\ Unchanged multivitamin, ( Multivitamins) 1 Tablets By Mouth Every day Contact prescribing physician if questions or concerns \.br\ Unchanged oxybutynin (oxybutynin 5 mg Tab) 1 Tablets By Mouth Every day Contact prescribing physician if questions or concerns \.br\ Pharmacy Information\.br\ [facility]pharmacy #[id number]: [address], [place] [phone]\.br\ \.br\ What How Much When Comments\.br\ Stop Taking fluoxetine (FLUoxetine 40 mg Cap) See instructions TAKE 2 CAPSULES BY MOUTH EVERY DAY \.br\ Allergies\.br\ Benzoin (Blisters)\.br\ albuterol (Difficulty breathing)\.br\ Keflex (Unknown)\.br\ Tape (Blisters)\.br\ cephalexin (Anaphylaxis)\.br\ Problems\.br\ Ongoing - Any problem that you are currently receiving treatment for.\.br\ Anemia\.br\ Anticoagulated\.br\ Arthritis\.br\ Back pain\.br\ BMI 40.0-44.9, adult\.br\ Elevated liver enzymes\.br\ History of UTI\.br\ HTN (hypertension), benign\.br\ Hydronephrosis with obstructing calculus\.br\ Hypercholesterolemia \.br\ Hyperglycemia\.br\ Hypersomnia\.br\ Hypothyroidism\.br\ Kidney stones\.br\ Major depressive disorder with single episode, in full remission\.br\ Metabolic syndrome X\.br\ Mixed incontinence\.br\ Morbid obesity\.br\ Obstructive sleep apnea\.br\ Osteopenia\.br\ Taste impairment\.br\ Ureteral stone\.br\ Ureteral stone with hydronephrosis\.br\ Patient Survey\.br\ You may receive a survey via text or e-mail asking about your office visit. Please share your experience with us by completing your survey. We appreciate your feedback and thank you for choosing us for your care.\.br\ \.br\ [facility] Dexa Scanson 02-16-2023 Dexa Scans [id number] #1.00TIFF Normal [facility] Outside Mammographyon 2022 Outside Mammography [id number] #1.00TIFF Normal [facility] Ambulatory Visit Summaryon 1 04-09-2022 Ambulatory Visit Summary MILDRED BRAN :1945 Visit Date:02/06/2023 Ambulatory Visit Instructions Your Diagnosis Annual visit for general adult medical examination without abnormal findings Ovarian failure Screening mammogram for breast cancer Major depressive disorder with single episode, in full remission HTN (hypertension), benign Hypercholesterolemia Hyperglycemia Obstructive sleep apnea Morbid obesity BMI 38.0-38.9,adult Tests Performed BD Bone Density DEXA -- Results Pending -- MA Mamm Screen w/CAD if perf and 3D Colby -- Results Pending -- Please visit your patient portal for your results or contact your primary care physician. Your Care Team Attending Physician - Bony Calhoun MD Primary Care Physician - Bony Calhoun MD This Is Your Medications List amitriptyline (amitriptyline 10 mg Tab) calcium-vitamin D celecoxib (CeleBREX 200 mg Cap) ferrous sulfate (ferrous sulfate 324 mg (65 mg elemental iron) oral enteric coated tablet) fluoxetine (FLUoxetine 40 mg Cap) hydrochlorothiazide (hydrochlorothiazide 12.5 mg Cap) levothyroxine (levothyroxine 75 mcg (0.075 mg) Tab) metformin (Glucophage XR 500 mg Tab-ER) modafinil multivitamin, ( Multivitamins) oxybutynin (oxybutynin 5 mg Tab) Procedures Performed ESWL of kidney (07/19/2019), Lithotripsy (04/15/2018), Lithotripsy using laser (04/08/2018), Appendectomy, Colonoscopy, Gastric bypass, Hernia repair, Hysterectomy, Repair of vagina, Stent removal. Discharge Vitals Heart Rate (Peripheral) 66 Blood Pressure 122/70 Height 152 cm Height 60 in Weight 88.9 kg Weight 195.58 lb BMI 38.48 What to do next Scheduled Follow-Up Appointments Thursday 10:00 AM EST With: Bony Calhoun MD Where: [place] [phone] \.br\ Medications\.br\ What How Much When Instructions\.br\ Unchanged amitriptyline (amitriptyline 10 mg Tab) See instructions 40mg at bedtime \.br\ Unchanged calcium-vitamin D 2 times a day\.br\ Unchanged celecoxib (CeleBREX 200 mg Cap) 200 Milligram By Mouth 2 times a day\.br\ Unchanged ferrous sulfate (ferrous sulfate 324 mg (65 mg elemental iron) oral enteric coated tablet) By Mouth Every day\.br\ Unchanged fluoxetine (FLUoxetine 40 mg Cap) See instructions TAKE 2 CAPSULES BY MOUTH EVERY DAY \.br\ Unchanged hydrochlorothiazide (hydrochlorothiazide 12.5 mg Cap) 1 Capsules By Mouth Every day\.br\ Unchanged levothyroxine (levothyroxine 75 mcg (0.075 mg) Tab) 1 Tablets By Mouth Every day\.br\ Unchanged metformin (Glucophage XR 500 mg Tab-ER) 1 Tablets By Mouth Every day\.br\ Unchanged modafinil 200 Milligram By Mouth Once a day (in the morning) half tab \.br\ Unchanged multivitamin, ( Multivitamins) 1 Tablets By Mouth Every day\.br\ Unchanged oxybutynin (oxybutynin 5 mg Tab) 1 Tablets By Mouth Every day\.br\ Allergies\.br\ Benzoin (Blisters)\.br\ albuterol (Difficulty breathing)\.br\ Keflex (Unknown)\.br\ Tape (Blisters)\.br\ cephalexin (Anaphylaxis)\.br\ Problems\.br\ Ongoing - Any problem that you are currently receiving treatment for.\.br\ Anemia\.br\ Anticoagulated\.br\ Arthritis\.br\ BMI 40.0-44.9, adult\.br\ Elevated liver enzymes\.br\ History of UTI\.br\ HTN (hypertension), benign\.br\ Hydronephrosis with obstructing calculus\.br\ Hypercholesterolemia \.br\ Hyperglycemia\.br\ Hypersomnia\.br\ Hypothyroidism\.br\ Kidney stones\.br\ Major depressive disorder with single episode, in full remission\.br\ Metabolic syndrome X\.br\ Mixed incontinence\.br\ Morbid obesity\.br\ Obstructive sleep apnea\.br\ Taste impairment\.br\ Ureteral stone\.br\ Ureteral stone with hydronephrosis\.br\ Patient Survey\.br\ You may receive a survey via text or e-mail asking about your office visit. Please share your experience with us by completing your survey. We appreciate your feedback and thank you for choosing us for your care.\.br\ Education Materials\.br\ Fall Prevention in the Home, Adult\.br\ Falls can cause injuries and affect people of all ages. There are many simple things that you can do to make your home safe and to help prevent falls. Ask for help when making these changes, if needed.\.br\ What actions can I take to prevent falls?\.br\ General instructions\.br\ ? \.br\ Use good lighting in all rooms. Replace any light bulbs that burn out, turn on lights if it is dark, and use night-lights.\.br\ ? \.br\ Place frequently used items in [id number]-dw-[id number] places. Lower the shelves around your home if necessary.\.br\ ? \.br\ Set up furniture so that there are clear paths around it. Avoid moving your furniture around.\.br\ ? \.br\ Remove throw rugs and other tripping hazards from the floor.\.br\ ? \.br\ Avoid walking on wet floors.\.br\ ? \.br\ Fix any uneven floor surfaces.\.br\ ? \.br\ Add color or contrast paint or tape to grab bars and handrails in your home. Place contrasting color strips on the first and last steps of staircases.\.br\ ? \.br\ When you use a stepladder, make sure that it is completely opened and that the sides and supports are firmly locked. Have someone hold the ladder while you are using it. Do not climb a closed stepladder.\.br\ ? \.br\ Know where your pets are when moving through your home.\.br\ What can I do in the bathroom?\.br\ \.br\ \.br\ ? \.br\ Keep the floor dry. Immediately clean up any water that is on the floor.\.br\ ? \.br\ Remove soap buildup in the tub or shower regularly.\.br\ ? \.br\ Use nonskid mats or decals on the floor of the tub or shower.\.br\ ? \.br\ Attach bath mats securely with double-sided, nonslip rug tape.\.br\ ? \.br\ If you need to sit down while you are in the shower, use a plastic, nonslip stool.\.br\ ? \.br\ Install grab bars by the toilet and in the tub and shower. Do not use towel bars as grab bars.\.br\ What can I do in the bedroom?\.br\ ? \.br\ Make sure that a bedside light is easy to reach.\.br\ ? \.br\ Do not use oversized bedding that reaches the floor.\.br\ ? \.br\ Have a firm chair that has side arms to use for getting dressed.\.br\ What can I do in the kitchen?\.br\ ? \.br\ Clean up any spills right away.\.br\ ? \.br\ If you need to reach for something above you, use a sturdy step stool that has a grab bar.\.br\ ? \.br\ Keep electrical cables out of the way.\.br\ ? \.br\ Do not use floor togolese or wax that makes floors slippery. If you must use wax, make sure that it is non-skid floor wax.\.br\ What can I do with my stairs?\.br\ ? \.br\ Do not leave any items on the stairs.\.br\ ? \.br\ Make sure that you have a light switch at the top and the bottom of the stairs. Have them installed if you do not have them.\.br\ ? \.br\ Make sure that there are handrails on both sides of the stairs. Fix handrails that are broken or loose. Make sure that handrails are as long as the staircases.\.br\ ? \.br\ Install non-slip stair treads on all stairs in your home.\.br\ ? \.br\ Avoid having throw rugs at the top or bottom of stairs, or secure the rugs with carpet tape to prevent them from moving.\.br\ ? \.br\ Choose a carpet design that does not hide the edge of steps on the stairs.\.br\ ? \.br\ Check any carpeting to make sure that it is firmly attached to the stairs. Fix any carpet that is loose or worn.\.br\ What can I do on the outside of my home?\.br\ ? \.br\ Use bright outdoor lighting.\.br\ ? \.br\ Regularly repair the edges of walkways and driveways and fix any cracks.\.br\ ? \.br\ Remove high doorway thresholds.\.br\ ? \.br\ Trim any shrubbery on the main path into your home.\.br\ ? \.br\ Regularly check that handrails are securely fastened and in good repair. Both sides of all steps should have handrails.\.br\ ? \.br\ Install guardrails along the edges of any raised decks or porches.\.br\ ? \.br\ Clear walkways of debris and clutter, including tools and rocks.\.br\ ? \.br\ Have leaves, snow, and ice cleared regularly.\.br\ ? \.br\ Use sand or salt on walkways during winter months.\.br\ ? \.br\ In the garage, clean up any spills right away, including grease or oil spills.\.br\ What other actions can I take?\.br\ ? \.br\ Wear closed-toe shoes that fit well and support your feet. Wear shoes that have rubber soles or low heels.\.br\ ? \.br\ Use mobility aids as needed, such as canes, walkers, scooters, and crutches.\.br\ ? \.br\ Review your medicines with your health care provider. Some medicines can cause dizziness or changes in blood pressure, which increase your risk of falling.\.br\ Talk with your health care provider about other ways that you can decrease your risk of falls. This may include working with a physical therapist or animal attendants and trainers to improve your strength, balance, and endurance.\.br\ Where to find more information\.br\ ? \.br\ Centers for Disease Control and Prevention, [place]: www.cdc.gov\.br\ ? \.br\ National [place] [employer] [place]: www.alexander.nih.gov\.br\ Contact a health care provider if:\.br\ ? \.br\ You are afraid of falling at home.\.br\ ? \.br\ You feel weak, drowsy, or dizzy at home.\.br\ ? \.br\ [facility] Medicine Office/Clini c Noteon 02-06-2023 Family Medicine Office/Clinic Note Chief Complaint Subsequent Wellness Visit Review of Systems PHQ Score Initial Depression Screen Score: 2 SCORE Physical Exam Vitals & Measurements HR: 66(Peripheral) BP: 122/70 SpO2: 98% HT: 152 cm HT: 60 in WT: 88.9 kg WT: 195.58 lb BMI: 38.48 Assessment/Plan 1. Annual visit for general adult medical examination without abnormal findings (Z00.00: Encounter for general adult medical examination without abnormal findings) The patient was given a customized and personalized print out of all the current AHRQ USPSTF?s recommendations for preventative services and all current CDC recommended immunizations, relevant risk recommendations and the following patient brochures were given. Reviewed Medicare preventative services checklist. CDC-Falls Prevention and home safety screening reviewed. Patient denies any falls in last 12 months, voices no worry about falling, exhibits no problems with sitting, standing, or ambulation. Pt voices understanding with keeping walk way area free of clutter to prevent tripping and/or falling. [place] Advance Directives reviewed, patient declines further information. Patient denies any problems with ADL?s and Instrumental ADL?s. Cognitive screening completed with memory and clock face drawing, no deficits noted. Immunization Record reviewed with the patient. COVID vaccines have been administered, immunization record is up to date. Allergies and medications reviewed and up to date. Patient denies concerns with taking medication as prescribed, reviewed OTC medications with patient, medication list up to date. Blood tests were reviewed: are UTD Colonoscopy up to date, records requested. Reviewed pain symptoms with patient: patient reports generalized pain symptoms due to arthritis, mostly hands and lower back. Rates 3/10 on pain scale. Takes Tylenol as needed, states works well enough. Reviewed all outside providers that patient follows. Last visit summary notes available in chart and/or have been requested. Follow up scheduled, 03/30/2023 AWV has been scheduled, 02/08/2024 15 minutes for completion of Alcohol screening questionnaire, documentation, discussion with patient, provider review. AUDIT score 0. Patient denies alcohol use. No concerns at this time. 2. Ovarian failure (E28.39: Other primary ovarian failure) Reviewed recommended bone mineral density testing for women who are 65 years of age or older. Educational handout for Bone Health reviewed and provided to the patient during today's Medicare Wellness visit. Medicare recommends testing every 5 years if results are WNL and every 2 years if results shows low bone mass. This is a deterioration of bone structure and can increase the risk of a fracture with falls. Eating a well-balanced diet with plenty of Calcium and Vitamin D will help to protect your bones. Daily weight-bearing physical activity can help build strong bones, improve bone amounts, and may reduce the risk of weakening of bones (Osteoporosis) later in life. Dexa scan order faxed to [facility]. 3. Screening mammogram for breast cancer (Z12.31: Encounter for screening mammogram for malignant neoplasm of breast) Recommended mammogram screening discussed with patient during today's Medicare Wellness visit. Patient reminded with the importance of continued Breast Self-Awareness at home. Easy to read demonstration on how to perform a self breast exam: What to look for and feel for was reviewed and provided to patient. Mammogram ordered and has been scheduled. Pt has been advised no deodorant, sprays or lotions. Order faxed to [facility]. 4. Major depressive disorder with single episode, in full remission (F32.5: Major depressive disorder, single episode, in full remission) Patient taking fluoxetine daily, voices medication is effective. Follows up with PCP with medication management and symptom control. PHQ-9 risk assessment completed with negative findings. Total risk score 7. Patient does voices a lot of family concerns going on at this time. Declines need for sooner appointment or appointment with . Patient denies any suicidal ideations at this time. Reviewed additional signs/symptoms to monitor for and report to provider. 5. HTN (hypertension), benign (I10: Essential (primary) hypertension) Patient is not taking BP medication at this time. HTN stoplight reviewed with BP goal to be <140/90. Reviewed different factors that can alter blood pressure readings. Education handout provided with s/s to monitor for and report to provider. Patient is encouraged to increase portions of fruit, vegetables, fiber and increase exercise as much as tolerable. Reviewed importance with monitoring foods high in salt content and encouraged to limit intake, if unsure encouraged to discuss with their PCP. Encouraged to eat more chicken, fish and lean white meats and limits red meats in diet. Discussed importance with keeping BP under good control to reduce CVA risk factors. Will continue to f/u with PCP during office visits and as needed. (more content not included)... Normal [facility] Comment on above: Result Comment: Elec tronically Signed By: Amisha Brock\.br\Date and Time Signed: 02/06/23 13:53 EST\.br\Electronically Co-Signed By: Dejuan Lozoya\.br\Date and Time Co-Signed: 02/06/23 09:49 EST Patient Educationon 02-07-20 23 Patient Education Cardiovascular Hypertension, Adult High blood pressure (hypertension) is when the force of blood pumping through the arteries is too strong. The arteries are the blood vessels that carry blood from the heart throughout the body. Hypertension forces the heart to work harder to pump blood and may cause arteries to become narrow or stiff. Untreated or uncontrolled hypertension can lead to a heart attack, heart failure, a stroke, kidney disease, and other problems. A blood pressure reading consists of a higher number over a lower number. Ideally, your blood pressure should be below 120/80. The first ( top ) number is called the systolic pressure. It is a measure of the pressure in your arteries as your heart beats. The second ( bottom ) number is called the diastolic pressure. It is a measure of the pressure in your arteries as the heart relaxes. What are the causes? The exact cause of this condition is not known. There are some conditions that result in high blood pressure. What increases the risk? Certain factors may make you more likely to develop high blood pressure. Some of these risk factors are under your control, including: ? Smoking. ? Not getting enough exercise or physical activity. ? Being overweight. ? Having too much fat, sugar, calories, or salt (sodium) in your diet. ? Drinking too much alcohol. Other risk factors include: ? Having a personal history of heart disease, diabetes, high cholesterol, or kidney disease. ? Stress. ? Having a family history of high blood pressure and high cholesterol. ? Having obstructive sleep apnea. ? Age. The risk increases with age. What are the signs or symptoms? High blood pressure may not cause symptoms. Very high blood pressure (hypertensive crisis) may cause: ? Headache. ? Fast or irregular heartbeats (palpitations). ? Shortness of breath. ? Nosebleed. ? Nausea and vomiting. ? Vision changes. ? Severe chest pain, dizziness, and seizures. How is this diagnosed? This condition is diagnosed by measuring your blood pressure while you are seated, with your arm resting on a flat surface, your legs uncrossed, and your feet flat on the floor. The cuff of the blood pressure monitor will be placed directly against the skin of your upper arm at the level of your heart. Blood pressure should be measured at least twice using the same arm. Certain conditions can cause a difference in blood pressure between your right and left arms. If you have a high blood pressure reading during one visit or you have normal blood pressure with other risk factors, you may be asked to: ? Return on a different day to have your blood pressure checked again. ? Monitor your blood pressure at home for 1 week or longer. If you are diagnosed with hypertension, you may have other blood or imaging tests to help your health care provider understand your overall risk for other conditions. How is this treated? This condition is treated by making healthy lifestyle changes, such as eating healthy foods, exercising more, and reducing your alcohol intake. You may be referred for counseling on a healthy diet and physical activity. Your health care provider may prescribe medicine if lifestyle changes are not enough to get your blood pressure under control and if: ? Your systolic blood pressure is above 130. ? Your diastolic blood pressure is above 80. Your personal target blood pressure may vary depending on your medical conditions, your age, and other factors. Follow these instructions at home: Eating and drinking ? Eat a diet that is high in fiber and potassium, and low in sodium, added sugar, and fat. An example of this eating plan is called the DASH diet. DASH stands for Dietary Approaches to Stop Hypertension. To eat this way: ? Eat plenty of fresh fruits and vegetables. Try to fill one half of your plate at each meal with fruits and vegetables. ? Eat whole grains, such as whole-wheat pasta, brown rice, or whole-grain bread. Fill about one fourth of your plate with whole grains. ? Eat or drink low-fat dairy products, such as skim milk or low-fat yogurt. ? Avoid fatty cuts of meat, processed or cured meats, and poultry with skin. Fill about one fourth of your plate with lean proteins, such as fish, chicken without skin, beans, eggs, or tofu. ? Avoid pre-made and processed foods. These tend to be higher in sodium, added sugar, and fat. ? Reduce your daily sodium intake. Many people with hypertension should eat less than 1,500 mg of sodium a day. ? Do not drink alcohol if: ? Your health care provider tells you not to drink. ? You are , may be , or are planning to become . ? If you drink alcohol: ? Limit how much you have to: ? 0?1 drink a day for women. ? 0?2 drinks a day for men. ? Know how much alcohol is in your drink. In the [place] one drink equals one 12 oz bottle of beer (355 mL), one 5 oz glass of wine (148 mL), or one 1? oz glass (more content not included)... [facility] Screenson 02-06-2023 Screens [id number] #[id number] [facility] Family Medicine Office/Clini c Noteon 12-24-2022 Family Medicine Office/Clinic Note HPI Staff Mildred is a 77 year old female presenting for follow up htn, hypothyroid and copd Patient is here for follow up on hypertension. How often are you checking your blood pressure? Doesnt check BP at home What are your average readings? N/A, Not checking at home Yearly BMP: 06/05/22_ Patient is here for follow up on Thyroid Disease. Do you have any of the following symptoms? Change in energy level? yes less energy Weight change? yesdid lose Heat/cold intolerance? no Hair/skin/nail changes? no Change in bowels? no Last TSH: ?? Patient is here for follow up on COPD: Patient says she doesn't have COPD Feeling controlled on medication: no meds fort this Need medication refilled: Do you use O2? no recent phq9-11 flu: due questions/concerns: her sugars are up she says Dr ring wanted her to do an A1C and she's put that off quite awhile and shes depressed Also food getting stuck in esophagus and she says had throat surgery which causes that History of Present Illness Mildred Philip is a 77-year-old female patient who presents today for her 3 months recheck. The patient is currently dealing with familial stressors, specifically legal issues involving her daughter, who has accused her of stalking. She recently attended a cheerleading event to support her granddaughter, whom she had not seen in 2 years. The patient maintains a strong affection for her granddaughter. Upon leaving the event, she encountered her daughter who initiated a confrontation. This incident led to court proceedings. The patient denies any knowledge of her daughter's residence. The ongoing situation is contributing to feelings of depression. The patient has been experiencing a difficult time, particularly following the of her mother. 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 The patient has a history of smoking for several years. She denies having COPD and is uncertain about its origin. The patient has been prescribed modafinil in a 200 mg dosage for 6 months instead of 3 months. However, the patient reports that she has never consumed more than half of the prescribed dose. The patient reports that there are instances, such as the present moment, when she only consumes approximately 0.333 of the prescribed dosage. The patient adjusts the dosage based on her emotional state, taking less when she feels content and possibly more when she feels anxious. She is mindful of maintaining a balance to ensure that she can sleep well without feeling overly stimulated during the day. The patient reports that her glucose levels were elevated to 130 mg/dl on the morning of 12/22/2022. She expresses interest in taking an HbA1c test. She has a history of taking metformin, not for high glucose levels, but to manage episodes of hypoglycemia. However, she discontinued the medication as she did not perceive any benefit from it and was frustrated by the assumption by others, including her insurance company, that she was diabetic. This led to unsolicited advice and reminders about additional health checks typically recommended for diabetics, such as frequent eye exams. The patient asserts that she does not have diabetes. The patient acknowledges having an eating disorder, which she believes significantly contributes to her current physical condition. She has a limited palate and consumes minimal amounts of meat. To supplement her diet, she occasionally takes protein powder, particularly when she feels her nutritional intake is inadequate. She recalls a period during which she consumed large quantities of cucumbers, noting that the vinegar and other ingredients led to weight loss despite not making significant dietary changes. However, she also admits that her overall food intake was relatively low during this time. The patient reports experiencing xerostomia, although it is not severe at the moment. However, she notes a persistent alteration in taste perception. Review of Systems PHQ Score Initial Depression Screen Score: 2 Physical Exam Vitals & Measurements T: 36.5 ?C(Oral) HR: 80(Peripheral) RR: 16 BP: 124/70 SpO2: 97% HT: 60 in HT: 152 cm WT: 89.7 kg WT: 197.34 lb BMI: 38.82 General: alert, no acute distress ENMT: Tongue is dry and cracked. Cardiovascular: regular rate and rhythm, normal peripheral perfusion Respiratory: Lungs CTA, respirations non labored Extremities: no deformity, no trauma Neurological: oriented x 4, LOC appropriate for age, CN II-XII intact, motor strength equal & normal bilaterally, speech normal Assessment/Plan 1. HTN (hypertension), benign (I10: Essential (primary) hypertension) Patient's blood pressure is at goal today. We will continue medication as before. 2. Hypothyroidism (E03.9: Hypothyroidism, unspecified) We will check TSH today. The patient should continue levothyroxine 75 mg until we get a change, or we need to change the medication. 3. Chronic obstructive pulmonar (more content not included)... [facility] Comment on above: Result Comment: Elec tronically Signed By: Bony Calhoun MD\.br\Date and Time Signed: 12/24/22 12:28 EDT\.br\Electronically Co-Signed By: Kristan Ro\.br\Date and Time Co-Signed: 12/22/22 11:42 EDT Auto Diffon 12-22-2022 Basophils/100 WBC (Bld) 0.8 % Normal 0.0-2.0 [facility] Comment on above: Order Comment: Order Added by Discern Expert. Performed By: #### 7 [id number] ####[facility] [id number] [place] [address] Basophils/Leukocyte s Auto (Bld) [Pure # fraction] 0.0 E9/L Normal 0.0-0.2 [facility] Comment on above: Order Comment: Order Added by Discern Expert. Performed By: #### 7 [id number] ####[address] [place] [address] Eosinophils/100 WBC (Bld) 1.8 % Normal 0.0-8.0 [facility] Comment on above: Order Comment: Order Added by Discern Expert. Performed By: #### 7 [id number] ####[address] [place] [address] Eosinophils/Leukocy adi Auto (Bld) [Pure # fraction] 0.1 E9/L Normal 0.0-0.5 [facility] Comment on above: Order Comment: Order Added by Reji Expert. Performed By: #### 7 [id number] ####[address] [address] Lymphocytes/100 WBC (Bld) 32.8 % Normal 14.0-50.0 [facility] Comment on above: Order Comment: Order Added by Reji Expert. Performed By: #### 7 [id number] ####[address] [address] Lymphocytes/Leukocy adi Auto (Bld) [Pure # fraction] 1.7 E9/L Normal 1.0-4.0 [facility] Comment on above: Order Comment: Order Added by Reji Expert. Performed By: #### 7 [id number] ####[address] [place] [address] Monocytes/100 WBC (Bld) 8.7 % Normal 4.0-14.0 [facility] Comment on above: Order Comment: Order Added by Reji Expert. Performed By: #### 7 [id number] ####[address] [place] [address] Monocytes/Leukocyte s Auto (Bld) [Pure # fraction] 0.5 E9/L Normal 0.2-1.0 [facility] Comment on above: Order Comment: Order Added by Discern Expert. Performed By: #### 7 [id number], 6043181, 9835360, 48210422, 1621158, 6433483 ####[address] [address] Neutrophils/100 WBC (Bld) 55.9 % Normal 36.0-75.0 [facility] Comment on above: Order Comment: Order Added by Discern Expert. Performed By: #### 7 [id number], 5914722, 8760885, 63997473, 3976118, 1462915 ####[address] [address] Neutrophils/Leukocy adi Auto (Bld) [Pure # fraction] 2.9 E9/L Normal 2.0-7.5 [facility] Comment on above: Order Comment: Order Added by Discern Expert. Performed By: #### 7 18934963, 7781027, 8683100, 82860298, 5536092, 0033681 ####[address] [place] [address] CBC w/ Auto Diffon Erythrocyte distribution width (RBC) [Ratio] 14.3 % High 10.9-14.2 [facility] Comment on above: Performed By: #### 7 08884707, 7965319, 6214656, 27830585, 8266902, 7044161 ####[address] [place] [address] Hematocrit (Bld) [Volume fraction] 41.0 % Normal 34.0-46.0 [facility] Comment on above: Performed By: #### 7 31434064, 2936923, 3286701, 56734721, 4248673, 0121739 ####[address] [place] [address] Hemoglobin (Bld) [Mass/Vol] 13.6 g/dL Normal 12.0-16.0 [facility] Comment on above: Performed By: #### 7 [id number], 8931442, 2153491, 60266993, 0646202, 0753749 ####[address] [address] MCH (RBC) [Entitic mass] 29.4 pg Normal 27.0-34.0 [facility] Comment on above: Performed By: #### 7 07841257, 3688794, 1908891, 24844419, 9979819, 1102319 ####[address] [address] MCHC (RBC) [Mass/Vol] 33.3 g/dL Normal 31.4-36.0 [facility] Comment on above: Performed By: #### 7 18220967, 9415893, 1193913, 64746309, 7641462, 9475155 ####[address] [address] MCV (RBC) [Entitic vol] 88.2 fL Normal 80.0-100.0 [facility] Comment on above: Performed By: #### 7 61979694, 3525773, 2641469, 98008617, 8696667, 3278433 ####[address] [address] Platelet mean volume (Bld) [Entitic vol] 9.6 fL Normal 6.4-10.8 [facility] Comment on above: Performed By: #### 7 56295664, 5660856, 7928115, 30746621, 9696021, 0999767 ####[address] [place] [address] Platelets (Bld) [#/Vol] 264.0 E9/L Normal 150.0-500.0 [facility] Comment on above: Performed By: #### 7 50082342, 1913710, 1765147, 19706390, 1624263, 3482543 ####[facility] [address] [place] [address] RBC (Bld) [#/Vol] 4.6 E12/L Normal 4.3-5.9 [facility] Comment on above: Performed By: #### 7 09794775, 9064767, 8163938, 65068509, 7474749, 7339526 ####[facility] [address] [place] [address] WBC corrected for nucl RBC Auto (Bld) [#/Vol] 5.2 E9/L Normal 4.0-11.0 [facility] Comment on above: Performed By: #### 7 94396570, 0747667, 4375726, 55345744, 6272146, 2091679 ####[facility] [address] [place] [address] CHEMISTRYOrdered By: SYSTEM SYSTEM on 12-22-2022 Albumin [Mass/Vol] 3.7 g/dL Normal 3.3 - 5.0 gm/dL F C Remisol Albumin/Globulin [Mass ratio] 0.9 {ratio} Low 1.1 - 2.2 [facility] ALP [Catalytic activity/Vol] 131 [iU]/d High 21 - 98 Int._Unit/L [facility] ALT No additional P-5'-P [Catalytic activity/Vol] 49 [iU]/d High 6 - 46 Int._Unit/L [facility] Anion gap [Moles/Vol] 11 mmol/L Normal 6 - 16 mEq/L [facility] AST [Catalytic activity/Vol] 40 [iU]/d Normal 5 - 43 Int._Unit/L [facility] Bilirubin [Mass/Vol] 0.3 mg/dL Normal 0.0 - 1.1 mg/dL [facility] Calcium [Mass/Vol] 9.8 mg/dL Normal 8.9 - 11.1 mg/dL [facility] Chloride [Moles/Vol] 104 mmol/L Normal 101 - 111 mmol/L [facility] Cholesterol [Mass/Vol] 246 mg/dL High 120 - 200 mg/dL [facility] Cholesterol in HDL [Mass/Vol] 63 mg/dL Invalid Interpretation Code [facility] Comment on above: Interpretive Data: H DL > or equal to 60 mg/dL: Low cardiovascular risk HDL < 40 mg/dL : High cardiovascular risk Cholesterol in LDL [Mass/Vol] 79 mg/dL Normal <=129mg/dL [facility] Cholesterol in VLDL [Mass/Vol] 38 mg/dL Normal 7 - 40 mg/dL [facility] CO2 [Moles/Vol] 27 mmol/L Normal 21 - 31 mmol/L [facility] Cobalamin (Vitamin B12) [Mass/Vol] 977 pg/mL Normal 50 - 1500 pg/mL [facility] Creatinine [Mass/Vol] 0.7 mg/dL Normal 0.5 - 1.3 mg/dL [facility] Folate [Mass/Vol] ng/mL Normal >=6.7ng/mL [facility] GFR/1.73 sq M.predicted among non-blacks MDRD (S/P/Bld) [Vol rate/Area] 90 mL/min/1.73 m2 Normal >=59mL/min/1.73 m2 [facility] Comment on above: Interpretive Data: C hronic kidney disease could be indicated at eGFR's of less than 60 mL/min/1.73m2. Kidney failure is indicated at less than 15 mL/min/1.73m2. Globulin (S) [Mass/Vol] 4.0 g/dL Normal 1.4 - 4.0 gm/dL [facility] Glucose [Mass/Vol] 80 mg/dL Normal 55 - 199 mg/dL [facility] Comment on above: Interpretive Data: I f this glucose result represents a fasting glucose, interpretation should refer to the following reference range: 55-99 mg/dL Potassium [Moles/Vol] 4.9 mmol/L Normal 3.5 - 5.3 mmol/L [facility] Protein [Mass/Vol] 7.7 g/dL Normal 6.0 - 7.8 gm/dL F [facility] Sodium [Moles/Vol] 137 mmol/L Normal 135 - 145 mmol/L [facility] Triglyceride [Mass/Vol] 189 mg/dL High <=149mg/dL [facility] TSH Qn 0.83 m[IU]/L Normal 0.34 - 5.60 mcIU/mL FTM C Remisol Urea nitrogen [Mass/Vol] 23 mg/dL High 5 - 21 mg/dL [facility] Urea nitrogen/Creatinine [Mass ratio] 33 mg/mg High 10 - 20 [facility] CHEMISTRYOrdered By: Nara bird on 12-22-2022 HbA1c (Bld) [Mass fraction] 6.2 % High <=5.9% [facility] ChemAutoSS CMPon 12-22-2022 Albumin [Mass/Vol] 3.7 g/dL Normal 3.3-5.0 [facility] Comment on above: Performed By: #### 7 [id number], 3035691, 1359835, 89003901, 3119598, 2494897 ####[facility] [address] [place] [address] Albumin/Globulin (S) [Mass conc ratio] 0.9 Low 1.1-2.2 [facility] Comment on above: Performed By: #### 7 34982375, 8103635, 4361130, 65594595, 1659584, 6353536 ####[facility] [address] [place] [address] ALP [Catalytic activity/Vol] 131 Int._Unit/L High 21-98 [facility] Comment on above: Performed By: #### 7 66473899, 8227345, 9182020, 18566961, 3141593, 2222266 ####[facility] [address] [place] [address] ALT No additional P-5'-P [Catalytic activity/Vol] 49 Int._Unit/L High 6-46 [facility] Comment on above: Performed By: #### 7 94236170, 0144896, 1180674, 12858530, 2066334, 6201423 ####[facility] [address] [place] [address] Anion gap [Moles/Vol] 11 mmol/L Normal 6-16 [facility] Comment on above: Performed By: #### 7 22570792, 1501414, 5476926, 40519083, 3515235, 9111346 ####[facility] [address] [place] [address] AST [Catalytic activity/Vol] 40 Int._Unit/L Normal 5-43 [facility] Comment on above: Performed By: #### 7 16768727, 7257176, 5925771, 43431244, 4525050, 0714674 ####[facility] [address] [place] [address] Bilirubin [Mass/Vol] 0.3 mg/dL Normal 0.0-1.1 [facility] Comment on above: Performed By: #### 7 60869406, 7360002, 8943791, 96191027, 8656212, 4910340 ####[facility] [address] [place] [address] Calcium [Mass/Vol] 9.8 mg/dL Normal 8.9-11.1 [facility] Comment on above: Performed By: #### 7 28849424, 2189103, 7943501, 53033295, 4003618, 7299048 ####[facility] [address] [place] [address] Chloride [Moles/Vol] 104 mmol/L Normal 101-111 [facility] Comment on above: Performed By: #### 7 69385849, 3131470, 0976583, 83716687, 9229597, 9685064 ####[facility] [address] [place] [address] CO2 [Moles/Vol] 27 mmol/L Normal 21-31 [facility] Comment on above: Performed By: #### 7 29921779, 6831770, 2047944, 56243003, 7519567, 7569896 ####[facility] [address] [place] [address] Creatinine [Mass/Vol] 0.7 mg/dL Normal 0.5-1.3 [facility] Comment on above: Performed By: #### 7 56171045, 4848989, 1413002, 83772669, 5382780, 1658950 ####[facility] [address] [place] [address] Globulin (S) [Mass/Vol] 4.0 g/dL Normal 1.4-4.0 [facility] Comment on above: Performed By: #### 7 08295406, 5553098, 3710891, 81327079, 7379047, 3291358 ####[facility] [address] [place] [address] Glucose [Mass/Vol] 80 mg/dL Normal 55-199 [facility] Comment on above: Result Comment: If t his glucose result represents a fasting glucose, interpretation should refer to the following reference range: 55-99 mg/dL Performed By: #### 7 66282789, 3186941, 3848215, 05566779, 2317552, 6850957 ####[facility] [address] [place] [address] Potassium [Moles/Vol] 4.9 mmol/L Normal 3.5-5.3 [facility] Comment on above: Performed By: #### 7 09094535, 8235227, 6620236, 38657727, 2070732, 9676162 ####[facility] [address] [place] [address] Protein [Mass/Vol] 7.7 g/dL Normal 6.0-7.8 [facility] Comment on above: Performed By: #### 7 00321309, 7702642, 3805008, 82270840, 6206399, 8146348 ####[facility] [address] [place] [address] Sodium [Moles/Vol] 137 mmol/L Normal 135-145 [facility] Comment on above: Performed By: #### 7 31996995, 4268143, 3513523, 85866847, 6254658, 8194130 ####[facility] [address] [place] [address] Urea nitrogen [Mass/Vol] 23 mg/dL High 5-21 [facility] Comment on above: Performed By: #### 7 50451346, 6577894, 1505706, 52809782, 5470156, 9270871 ####[facility] [address] [place] [address] Urea nitrogen/Creatinine [Mass ratio] 33 No Units High 10-20 [facility] Comment on above: Performed By: #### 7 96885604, 6529695, 7802691, 70828494, 3106718, 9935749 ####[facility] [address] [place] [address] Folateon 12-22-2022 Folate [Mass/Vol] ng/mL Normal >=6.7 [facility] Comment on above: Performed By: #### 2 401694, 0944954, 32200487 ####[facility] [address] [place] [address] HEMATOLOGYOrdered By: SYSTEM SYSTEM on 12-22-2022 Basophils/100 WBC (Bld) 0.8 % Normal 0.0 - 2.0 % [facility] HemeAutoSS Basophils/Leukocyte s Auto (Bld) [Pure # fraction] 0.0 E9/L Normal 0.0 - 0.2 E9/L [facility] HemeAutoSS Eosinophils/100 WBC (Bld) 1.8 % Normal 0.0 - 8.0 % [facility] HemeAutoSS Eosinophils/Leukocy adi Auto (Bld) [Pure # fraction] 0.1 E9/L Normal 0.0 - 0.5 E9/L [facility] HemeAutoSS Lymphocytes/100 WBC (Bld) 32.8 % Normal 14.0 - 50.0 % [facility] HemeAutoSS Lymphocytes/Leukocy adi Auto (Bld) [Pure # fraction] 1.7 E9/L Normal 1.0 - 4.0 E9/L [facility] HemeAutoSS Monocytes/100 WBC (Bld) 8.7 % Normal 4.0 - 14.0 % [facility] HemeAutoSS Monocytes/Leukocyte s Auto (Bld) [Pure # fraction] 0.5 E9/L Normal 0.2 - 1.0 E9/L FT HemeAutoSS Neutrophils/100 WBC (Bld) 55.9 % Normal 36.0 - 75.0 % [facility] HemeAutoSS Neutrophils/Leukocy adi Auto (Bld) [Pure # fraction] 2.9 E9/L Normal 2.0 - 7.5 E9/L FT HemeAutoSS HEMATOLOGYOrdered By: Nara Rios on 12-22-2022 Erythrocyte distribution width (RBC) [Ratio] 14.3 % High 10.9 - 14.2 % [facility] HemeAutoSS Hematocrit (Bld) [Volume fraction] 41.0 % Normal 34.0 - 46.0 % FT HemeAutoSS Hemoglobin (Bld) [Mass/Vol] 13.6 g/dL Normal 12.0 - 16.0 gm/dL FT HemeAutoSS MCH (RBC) [Entitic mass] 29.4 pg Normal 27.0 - 34.0 pg FT HemeAutoSS MCHC (RBC) [Mass/Vol] 33.3 g/dL Normal 31.4 - 36.0 gm/dL FT HemeAutoSS MCV (RBC) [Entitic vol] 88.2 fL Normal 80.0 - 100.0 fL FT HemeAutoSS Platelet mean volume (Bld) [Entitic vol] 9.6 fL Normal 6.4 - 10.8 fL FT HemeAutoSS Platelets (Bld) [#/Vol] 264.0 E9/L Normal 150.0 - 500.0 E9/L FT HemeAutoSS RBC (Bld) [#/Vol] 4.6 E12/L Normal 4.3 - 5.9 E12/L FT HemeAutoSS WBC corrected for nucl RBC Auto (Bld) [#/Vol] 5.2 E9/L Normal 4.0 - 11.0 E9/L [facility]eAutoSS [id number] 12-22-2022 HbA1c (Bld) [Mass fraction] 6.2 % High <=5.9 [facility] Comment on above: Performed By: #### 7 94380224, 1691494, 3808000, 46090064, 9541088, 6835551 ####[facility] [address] [place] [address] Lipid Panelon 12-22-2022 Cholesterol [Mass/Vol] 246 mg/dL High 120-200 [facility] Comment on above: Performed By: #### 7 89699829, 3464245, 1743508, 98710741, 7448057, 5173023 ####[facility] [address] [place] [address] Cholesterol in HDL [Mass/Vol] 63 mg/dL Invalid Interpretation Code [facility] Comment on above: Result Comment: HDL > or equal to 60 mg/dL: Low cardiovascular risk HDL < 40 mg/dL : High cardiovascular risk Performed By: #### 7 65490893, 9844354, 7252297, 71208322, 4017200, 4390816 ####[facility] [address] [place] [address] Cholesterol in LDL [Mass/Vol] 79 mg/dL Normal <=129 [facility] Comment on above: Performed By: #### 7 30960475, 9198533, 4113678, 50843412, 6137786, 0725843 ####[facility] [address] [place] [address] Cholesterol in VLDL [Mass/Vol] 38 mg/dL Normal 7-40 [facility] Comment on above: Performed By: #### 7 01272927, 6023547, 5253048, 17014891, 2388578, 7544932 ####[facility] [address] [place] [address] Triglyceride [Mass/Vol] 189 mg/dL High <=149 [facility] Comment on above: Performed By: #### 7 92976017, 3017110, 2952718, 34438196, 7769571, 7227587 ####[facility] [address] [place] [address] TSH With T4fr Reflexon 12-22 TSH Qn 0.83 m[IU]/L Normal 0.34-5.60 [facility] Comment on above: Performed By: #### 2 111435, 0224915, 62055470 ####[facility] [address] [place] [address] Vit B12on 12-22-2022 Cobalamin (Vitamin B12) [Mass/Vol] 977 pg/mL Normal 50-1500 [facility] Comment on above: Performed By: #### 2 513678, 2029501, 86892666 ####[facility] [address] [place] [address] eGFRon 12-22-2022 GFR/1.73 sq M.predicted among non-blacks MDRD (S/P/Bld) [Vol rate/Area] 90 mL/min/1.73 m2 Normal >=59 [facility] Comment on above: Order Comment: Order added by Discern Expert. Result Comment: [employer] huey kidney disease could be indicated at eGFR's of less than 60 mL/min/1.73m2. Kidney failure is indicated at less than 15 mL/min/1.73m2. Performed By: #### 7 18534617, 6241331, 4604275, 13278337, 1943307, 3054443 ####[facility] [address] [place] [address] CBC AUTO DIFFon 06-05-2022 BASO # 0.1 103/ul Normal 0.0-0.1 [facility] Comment on above: Performed By: #### C BC ####[facility] [address] [place], [place] [address]Dr. Yilan Driscoll Basophils/100 WBC (Bld) 0.9 % Normal 0.2-2.0 [facility] Comment on above: Performed By: #### C BC ####[facility] [address]Dr. Yilan Driscoll EO # 0.2 103/ul Normal 0.0-0.7 [facility] Comment on above: Performed By: #### C BC ####[facility] [address] [place], [place] [address]Dr. Yilan Driscoll Eosinophils/100 WBC (Bld) 3.4 % Normal 0.9-7.0 [facility] Comment on above: Performed By: #### C BC ####[facility] [address] [place] [address]Dr. Burke Driscoll Erythrocyte distribution width (RBC) [Ratio] 13.2 % Normal 11.0-15.0 [facility] Comment on above: Performed By: #### C BC ####[facility] [address] [place] [address]Dr. Burke Driscoll Hematocrit (Bld) [Volume fraction] 41.4 % Normal 36.0-48.0 [facility] Comment on above: Performed By: #### C BC ####[facility] [address] [place], [place] [address]Dr. Burke Driscoll Hemoglobin (Bld) [Mass/Vol] 13.2 g/dL Normal 12.0-16.0 [facility] Comment on above: Performed By: #### C BC ####[facility] [address] [place], [place] [address]Dr. Burke Driscoll IG # 0.03 10e3/ul Normal 0.00-0.03 [facility] Comment on above: Performed By: #### C BC ####[facility] [address] [place], [place] [address]Dr. Burke Driscoll IG % 0.5 % Normal 0.0-0.5 [facility] Comment on above: Performed By: #### C BC ####[facility] [address] [place], [place] [address]Dr. Burke Driscoll LYMPH # 1.7 103/ul Normal 1.2-3.8 [facility] Comment on above: Performed By: #### C BC ####[facility] [address] [place], [place] [address]Dr. Burke Driscoll Lymphocytes/100 WBC (Bld) 28.8 % Normal 20.5-60.0 [facility] Comment on above: Performed By: #### C BC ####[facility] [address] [place], [place] [address]Dr. Burke Driscoll MANUAL DIFF REQ NO Normal [facility] Comment on above: Performed By: #### C BC ####[facility] [address] [place] [id number]. Burke Driscoll MCH (RBC) [Entitic mass] 29.1 pg Normal 26.7-34.0 [facility] Comment on above: Performed By: #### C BC ####[facility] [address] [place] [address]Dr. Burke Driscoll MCHC (RBC) [Mass/Vol] 31.9 g/dL Normal 29.9-35.2 [facility] Comment on above: Performed By: #### C BC ####[facility] [address] [place], [place] [address]Dr. Burke Driscoll MCV (RBC) [Entitic vol] 91.2 fL Normal 81.0-99.0 [facility] Comment on above: Performed By: #### C BC ####[facility] [address] [place], [place] [address]Dr. Burke Driscoll MONO # 0.5 103/ul Normal 0.3-0.8 [facility] Comment on above: Performed By: #### C BC ####[facility] [address] [place], [place] [address]Dr. Burke Driscoll Monocytes/100 WBC (Bld) 8.1 % Normal 1.7-12.0 [facility] Comment on above: Performed By: #### C BC ####[facility] [address] [place], [place] [address]Dr. Burke Driscoll NEUT # 3.4 103/ul Normal 1.4-6.5 [facility] Comment on above: Performed By: #### C BC ####[facility] [address] [place], [place] [address]Dr. Burke Driscoll Neutrophils/100 WBC (Bld) 58.3 % Normal 43.0-75.0 [facility] Comment on above: Performed By: #### C BC ####[facility] [address] [place], [place] [address]Dr. Burke Driscoll Platelet mean volume (Bld) [Entitic vol] 9.9 fL Normal 9.5-13.5 [facility] Comment on above: Performed By: #### C BC ####[facility] [address] [place] [address]Dr. Burke Driscoll PLT 247 103/ul Normal 150-450 [facility] Comment on above: Performed By: #### C BC ####[facility] [address] [place] [address]Dr. Burke Driscoll RBC 4.54 106/ul Normal 4.20-5.40 [facility] Comment on above: Performed By: #### C BC ####[facility] [address] [place] [address]Dr. Burke Driscoll WBC 5.8 103/ul Normal 4.0-11.0 [facility] Comment on above: Performed By: #### C BC ####[facility] [address] [place] [address]Dr. Burke Driscoll PROF 14(COMP METB)on 023 Albumin [Mass/Vol] 4.0 g/dL Normal 3.4-5.0 [facility] Comment on above: Performed By: #### C MP ####[facility] [address] [place] [address]Dr. Burke Americo Albumin/Globulin [Mass ratio] 1.1 {ratio} Normal [facility] Comment on above: Performed By: #### C MP ####[facility] [address] [place] [address]Dr. Burke Driscoll ALP [Catalytic activity/Vol] 181 U/L Critically high 46-116 [facility] Comment on above: Performed By: #### C MP ####[facility] [address] [place] [address]Dr. Burke Driscoll ALT [Catalytic activity/Vol] 51 U/L Normal 14-59 [facility] Comment on above: Performed By: #### C MP ####[facility] [address] [place] [address]Dr. Burke Driscoll Anion gap [Moles/Vol] 10.5 mmol/L Normal [facility] Comment on above: Performed By: #### C MP ####[facility] [address] [place] [address]Dr. Burke Driscoll AST [Catalytic activity/Vol] 24 U/L Normal 15-37 [facility] Comment on above: Performed By: #### C MP ####[facility] [address] [place], [place] [address]Dr. Burke Driscoll Bilirubin [Mass/Vol] 0.3 mg/dL Normal 0.2-1.0 [facility] Comment on above: Performed By: #### C MP ####[facility] [address] [place], [place] [address]Dr. Burke Americo Calcium [Mass/Vol] 9.4 mg/dL Normal 8.5-10.1 [facility] Comment on above: Performed By: #### C MP ####[facility] [address] [place], [place] [address]Dr. Pilardon Driscoll Chloride [Moles/Vol] 102 mmol/L Normal 98-107 [facility] Comment on above: Performed By: #### C MP ####[facility] [address] [place], [place] [address]Dr. Burke Americo CO2 [Moles/Vol] 31.8 mmol/L Normal 21.0-32.0 [facility] Comment on above: Performed By: #### C MP ####[facility] [address] [place], [place] [address]Dr. Burke Americo Creatinine [Mass/Vol] 0.64 mg/dL Normal 0.55-1.02 The [facility] Comment on above: Performed By: #### C MP ####[facility] [address] [place], [place] [address]Dr. Pilardon Americo EGFR-AF SLOVAK >60 Normal >=60 [facility] Comment on above: Performed By: #### C MP ####[facility] [address] [place], [place] [address]Dr. Burke Driscoll EGFR-NON AF SLOVAK >60 Normal >=60 The [facility] Comment on above: Performed By: #### C MP ####[facility] [address] [place], [place] [address]Dr. Burke Driscoll Globulin (S) [Mass/Vol] 3.7 g/dL Normal [facility] Comment on above: Performed By: #### C MP ####[facility] [address] [place] [address]Dr. Burke Driscoll Glucose [Mass/Vol] 129 mg/dL Critically high 74-106 [facility] Comment on above: Performed By: #### C MP ####[facility] [address] [place], [place] [address]Dr. Burke Driscoll Potassium [Moles/Vol] 4.3 mmol/L Normal 3.5-5.1 [facility] Comment on above: Performed By: #### C MP ####[facility] [address] [place], [place] [address]Dr. Burke Driscoll Protein [Mass/Vol] 7.7 g/dL Normal 6.4-8.2 [facility] Comment on above: Performed By: #### C MP ####[facility] [address] [place], [place] [address]Dr. Burke Driscoll Sodium [Moles/Vol] 140 mmol/L Normal 136-145 [facility] Comment on above: Performed By: #### C MP ####[facility] [address] [place], [place] [address]Dr. Burke Driscoll Urea nitrogen [Mass/Vol] 31.0 mg/dL Critically high 7.0-18.0 [facility] Comment on above: Performed By: #### C MP ####[facility] [address] [place], [place] [address]Dr. Burke Driscoll Urea nitrogen/Creatinine [Mass ratio] 48.4 mg/mg Normal [facility] Comment on above: Performed By: #### C MP ####[facility] Dxbzwfgebu[address] [place], [place] [address]Dr. Burke Driscoll CBC AUTO DIFFon 04-10-2022 BASO # 0.1 103/ul Normal 0.0-0.1 [facility] Comment on above: Performed By: #### C BC ####[facility] Aiqyocujyj[address] [place], [place] [address]Dr. Burke Driscoll Basophils/100 WBC (Bld) 0.6 % Normal 0.2-2.0 The [facility] Comment on above: Performed By: #### C BC ####[facility] Lxkflfkduk[address] [place], [place] [address]Dr. Burke Driscoll EO # 0.3 103/ul Normal 0.0-0.7 The [facility] Comment on above: Performed By: #### C BC ####[facility] Fnabaummem[address] [place], [place] [address]Dr. Burke Driscoll Eosinophils/100 WBC (Bld) 3.6 % Normal 0.9-7.0 The [facility] Comment on above: Performed By: #### C BC ####[facility] Mfccteujwn[address] [place], [place] [address]Dr. Burke Driscoll Erythrocyte distribution width (RBC) [Ratio] 12.5 % Normal 11.0-15.0 The [facility] Comment on above: Performed By: #### C BC ####[facility] Xloilzbwos[address] [place], [place] [address]Dr. Burke Driscoll Hematocrit (Bld) [Volume fraction] 45.3 % Normal 36.0-48.0 The [facility] Comment on above: Performed By: #### C BC ####[facility] Cthfialnhm[address] [place], [place] [address]Dr. Burke Driscoll Hemoglobin (Bld) [Mass/Vol] 14.0 g/dL Normal 12.0-16.0 The [facility] Comment on above: Performed By: #### C BC ####[facility] Epdsfsedks[address] [place], [place] [address]Dr. Burke Driscoll IG # 0.04 10e3/ul Critically high 0.00-0.03 The [facility] Comment on above: Performed By: #### C BC ####[facility] Kphubxdcmd[address] [place], [place] [address]Dr. Burke Driscoll IG % 0.5 % Normal 0.0-0.5 The [facility] Comment on above: Performed By: #### C BC ####[facility] Stszbevvkh[address] [place], [place] [address]Dr. Burke Driscoll LYMPH # 2.0 103/ul Normal 1.2-3.8 The [facility] Comment on above: Performed By: #### C BC ####[facility] [address] [place] [address]Dr. Pilardon Driscoll Lymphocytes/100 WBC (Bld) 22.7 % Normal 20.5-60.0 The [facility] Comment on above: Performed By: #### C BC ####[facility] [address] [place] [address]Dr. Burke Driscoll MANUAL DIFF REQ NO Normal The [facility] Comment on above: Performed By: #### C BC ####[facility] [address] [place] [address]Dr. Burke Driscoll MCH (RBC) [Entitic mass] 29.1 pg Normal 26.7-34.0 The [facility] Comment on above: Performed By: #### C BC ####[facility] [address] [place] [address]Dr. Pilardon Driscoll MCHC (RBC) [Mass/Vol] 30.9 g/dL Normal 29.9-35.2 The [facility] Comment on above: Performed By: #### C BC ####[facility] [address]vx[address] [place] [address]Dr. Burke Driscoll MCV (RBC) [Entitic vol] 94.2 fL Normal 81.0-99.0 The [facility] Comment on above: Performed By: #### C BC ####[facility] [address] [place] [address]Dr. Burke Driscoll MONO # 0.6 103/ul Normal 0.3-0.8 The [facility] Comment on above: Performed By: #### C BC ####[facility] [address] [place] [address]Dr. Burke Driscoll Monocytes/100 WBC (Bld) 7.3 % Normal 1.7-12.0 The [facility] Comment on above: Performed By: #### C BC ####[facility] [address] [place] [address]Dr. Burke Driscoll NEUT # 5.7 103/ul Normal 1.4-6.5 The [facility] Comment on above: Performed By: #### C BC ####[facility] [address] [place] [address]Dr. Burke Driscoll Neutrophils/100 WBC (Bld) 65.3 % Normal 43.0-75.0 The [facility] Comment on above: Performed By: #### C BC ####[facility] [address]rimufms[address] [place] [address]Dr. Burke Driscoll Platelet mean volume (Bld) [Entitic vol] 10.7 fL Normal 9.5-13.5 The [facility] Comment on above: Performed By: #### C BC ####[facility] [address] [place] [address]Dr. Burke Driscoll PLT 257 103/ul Normal 150-450 The [facility] Comment on above: Performed By: #### C BC ####[facility] [address]rm[address] [place] [address]Dr. Burke Driscoll RBC 4.81 106/ul Normal 4.20-5.40 The [facility] Comment on above: Performed By: #### C BC ####[facility] [address]cnuhqnc[address] [place] [address]Dr. Burke Driscoll WBC 8.7 103/ul Normal 4.0-11.0 The [facility] Comment on above: Performed By: #### C BC ####[facility] [address] [place] [address]Dr. Burke [address] CT ABD/PELVIS WO CONon 04-10 CT ABD/PELVIS WO CON EXAMINATION: CT ABD/PELVIS WO CON, 04/10/2022 12:23 AM EST HISTORY: CALCULUS OF KIDNEY COMPARISON: CT abdomen and pelvis examination dated 03/11/2021. TECHNIQUE: CT scan of the abdomen and pelvis was performed without IV contrast. CT dose reduction technique was used, including Automated Exposure Control. FINDINGS: There is mild bibasilar atelectasis. There is a small hiatal hernia. Fluid is seen within the hiatal hernia and the distal esophagus. Abdomen: Please note that the sensitivity for detection of focal lesions or vascular disease is markedly reduced without intravenous contrast. The liver and spleen are unremarkable. There is no intra or extrahepatic biliary duct dilatation. The gallbladder is unremarkable. There is fatty atrophy of the pancreas. There are bilateral nonobstructive renal calculi measuring up to 0.4 cm on the right. There is a 0.3 cm calculus in the distal right ureter with an additional 0.4 cm calculus in the distal right ureter. There is resultant mild to moderate right hydroureter and moderate to severe right hydronephrosis. There is colonic diverticulosis without evidence of acute inflammation. There are postsurgical changes of a gastric bypass. The appendix is not seen. There are some mildly dilated air and fluid-filled loops of small bowel measuring up to 3.1 cm. The adrenal glands are unremarkable. There is no mesenteric or retroperitoneal lymphadenopathy. There are postsurgical changes of a prior ventral abdominal wall hernia repair. Pelvis: The bladder and rectum are unremarkable. There is no iliac or inguinal lymphadenopathy. The patient is status post hysterectomy. There is mild atherosclerotic disease. Bone windows show no aggressive osseous lesions. IMPRESSION: 1. There are 2 calculi within the distal right ureter measuring up to 0.4 cm with mild to moderate right hydroureter and moderate to severe right hydronephrosis. 2. Bilateral nonobstructive renal calculi. 3. Fluid within a small hiatal hernia and distal esophagus suggestive of gastroesophageal reflux. 4. Colonic diverticulosis without evidence of acute inflammation. 5. Status post gastric bypass. 6. Status post appendectomy and hysterectomy. 7. Mildly dilated air and fluid-filled loops of small bowel which could represent enteritis. Electronically authenticated by: Moose RAYMOND Date: 2022-04-10 02:45 Normal The [facility] CULTURE URINEon 04-10-2022 CULTURE URINE Culture Observations: MODERATE GROWTH OF MIXED GENITAL ANGEL. NO POTENTIAL PATHOGENS SEEN. Normal The [facility] Comment on above: Performed By: #### U RCX ####[facility] [address] [place] [id number] Driscoll ER URINE PROFILEon 3 Bilirubin Ql (U) Negative Normal NEGATIVE The [facility] Comment on above: Performed By: #### U MICRO, ERUR ####[facility] [address] [place] [id number] Driscoll Clarity (U) CLEAR Normal CLEAR The [facility] Comment on above: Performed By: #### U MICRO, ERUR ####[facility] Jpewfbkeuc[address] [place], [place] [address]Dr. Burke Driscoll Color (U) LT. YELLOW Normal YELLOW The [facility] Comment on above: Performed By: #### U MICRO, ERUR ####[facility] [address]akmvmg[address] [place], [place] [address]Dr. Burke Driscoll ERUAHD A micrscopic examination will be performed if indicated. Normal The [facility] Comment on above: Performed By: #### U MICRO, ERUR ####[facility] Xvvakydovs[address] [place], [place] [address]Dr. Burke Driscoll Glucose Ql (U) Negative Normal NEGATIVE The [facility] Comment on above: Performed By: #### U MICRO, ERUR ####[facility] [address]wylraafh[address] [place], [place] [address]Dr. Burke Driscoll Hemoglobin Ql (U) MODERATE Abnormal NEGATIVE The [facility] Comment on above: Performed By: #### U MICRO, ERUR ####[facility] Ydicupylez[address] [place], [place] [address]Dr. Burke Driscoll Ketones Ql (U) Negative Normal NEGATIVE The [facility] Comment on above: Performed By: #### U MICRO, ERUR ####[facility] Iphnzuwfad[address] [place], [place] [address]Dr. Burke Driscoll LEUKOCYTES SMALL Abnormal NEGATIVE The [facility] Comment on above: Performed By: #### U MICRO, ERUR ####[facility] Yvnxfphzgo[address] [place], [place] [address]Dr. Burke Driscoll Nitrite Ql (U) Negative Normal NEGATIVE The [facility] Comment on above: Performed By: #### U MICRO, ERUR ####[facility] Fhccrro[address] [place], [place] [address]Dr. Burke Driscoll pH (U) 5.5 [pH] Normal 5-9 The [facility] Comment on above: Performed By: #### U MICRO, ERUR ####[facility] Exvgofstjk[address] [place], [place] [address]Dr. Burke Driscoll SPEC GRAVITY 1.025 Normal 1.005-<=1.025 The [facility] Comment on above: Performed By: #### U MICRO, ERUR ####[facility] [address] [place] [address]Dr. Burke Driscoll UA PROTEIN Negative Normal NEGATIVE/ TRACE The [facility] Comment on above: Performed By: #### U MICRO, ERUR ####[facility] [address] [place] [address]Dr. Burke Driscoll UR MICRO IND INDICATED Normal [facility] Comment on above: Performed By: #### U MICRO, ERUR ####[facility] [address] [place] [address]Dr. Burke Driscoll Urobilinogen Qn (U) 0.2 {Parvin'U}/dL Normal 0.2 - 1. 0 The [facility] Comment on above: Performed By: #### U MICRO, ERUR ####[facility] Rpdfpr[address]ioa[address] [place] [address]Dr. Burke Driscoll PROF CHEM 8 (BAS METB)on Anion gap [Moles/Vol] 12.7 mmol/L Normal [facility] Comment on above: Performed By: #### B MP #### [facility] [address] [place] [address] [address] Burke Driscoll Calcium [Mass/Vol] 9.6 mg/dL Normal 8.5-10.1 The [facility] Comment on above: Performed By: #### B MP #### [facility] [address] [place] [address] [address] Burke Driscoll Chloride [Moles/Vol] 101 mmol/L Normal 98-107 The [facility] Comment on above: Performed By: #### B MP #### [facility] [address] [place] [address] [address] Burke Driscoll CO2 [Moles/Vol] 26.7 mmol/L Normal 21.0-32.0 The [facility] Comment on above: Performed By: #### B MP #### [facility] [address] [place] [address] [address] Burke Driscoll Creatinine [Mass/Vol] 0.86 mg/dL Normal 0.55-1.02 [facility] Comment on above: Performed By: #### B MP #### [facility] [address] [place] [address] [address] Burke Driscoll EGFR-AF SLOVAK >60 Normal >=60 [facility] Comment on above: Performed By: #### B MP #### [facility] [address] [place] [address] [address] Burke Driscoll EGFR-NON AF SLOVAK >60 Normal >=60 [facility] Comment on above: Performed By: #### B MP #### [facility] [address] [place] [address] [address] Burke Driscoll Glucose [Mass/Vol] 196 mg/dL Critically high 74-106 [facility] Comment on above: Performed By: #### B MP #### [facility] [address] [place] [address] [address] Burke Driscoll Potassium [Moles/Vol] 3.4 mmol/L Critically low 3.5-5.1 [facility] Comment on above: Performed By: #### B MP #### [facility] [address] [place] [address] [address] Burke Driscoll Sodium [Moles/Vol] 137 mmol/L Normal 136-145 [facility] Comment on above: Performed By: #### B MP #### [facility] [address] [place] [address] [address] Burke Driscoll Urea nitrogen [Mass/Vol] 30.0 mg/dL Critically high 7.0-18.0 [facility] Comment on above: Performed By: #### B MP #### [facility] [address] [place] [address] [address] Burke Driscoll Urea nitrogen/Creatinine [Mass ratio] 34.9 mg/mg Normal [facility] Comment on above: Performed By: #### B MP #### [facility] [address] [place] [address] [address] Burke Driscoll URINE MICROSCOPIC ONLYon BACTERIA MODERATE Abnormal NONE SEEN The [facility] Comment on above: Performed By: #### U MICRO, ERUR ####[facility] [address] [place] [address]Dr. Burke Driscoll Bacteria identified Cx Nom (U) INDICATED Normal The [facility] Comment on above: Performed By: #### U MICRO, ERUR ####[facility] [address] [place] [address]Dr. Burke Driscoll CAST NONE SEEN Normal NONE SEEN The [facility] Comment on above: Performed By: #### U MICRO, ERUR ####[facility] [address] [place] [address]Dr. Burke Driscoll Crystals LM Nom (Urine sed) NONE SEEN Normal NONE SEEN The [facility] Comment on above: Performed By: #### U MICRO, ERUR ####[facility] [address]xs[address] [place], [place] [address]Dr. Burke Drisclol Epithelial cells LM Ql (Urine sed) FEW Abnormal NONE SEEN /RARE The [facility] Comment on above: Performed By: #### U MICRO, ERUR ####[facility] [address] [place], [place] [address]Dr. Burke Driscoll MUCOUS TRACE Abnormal NONE SEEN The [facility] Comment on above: Performed By: #### U MICRO, ERUR ####[facility] [address] [place], [place] [address]Dr. Burke Driscoll RBC 50-75 Abnormal 0-2 The [facility] Comment on above: Performed By: #### U MICRO, ERUR ####[facility] [address] [place], [place] [address]Dr. Burke Driscoll WBC 50-75 Abnormal NONE SEEN The [facility] Comment on above: Performed By: #### U MICRO, ERUR ####[facility] [address]oute[address] [place], [place] [address]Dr. Burke Driscoll XR KUB 1 VIEWon 04-10-2022 XR KUB 1 VIEW EXAM: XR KUB 1 VIEW HISTORY: CALCULUS OF KIDNEY COMPARISON: CT abdomen pelvis 04/10/2022 TECHNIQUE: Single frontal view of abdominal KUB x-ray FINDINGS: Multiple 3-4 mm calcific oval densities within the right distal pelvis/distal ureter region. Multiple pelvic phleboliths seen. Large stool burden at the ascending colon obscuring the right renal fossa for the previously seen right renal stones seen on prior CT. No dilated small bowel silhouette or air-fluid levels. No discrete large free air. No acute bony abnormality. IMPRESSION: Multiple 3-4 mm calcific oval densities within the right distal ureteral region, likely corresponding to previously seen right distal ureter stones. However, there are multiple pelvic phleboliths within the pelvis. Large stool burden at the ascending colon obscuring the right renal fossa for the previously seen right renal stones seen on prior CT. Electronically authenticated by: MICH MCKENZIE Date: 2022-04-10 04:48 Normal The [facility] CRPon 12-11-2021 CRP 0.6 mg/dL Normal <=1.0 [facility] Comment on above: Performed By: #### C RP #### [facility] [address] [place] [address] [address] Burke Driscoll SED RATE [facility] 2021 SED RATE 29 mm/hr Normal <=30 The [facility] Comment on above: Performed By: #### S EDR #### [facility] [address] [place] [address] [address] Burke Driscoll COVID-19 Antigenon 2 COVID-19 Antigen Healthcare Worker?: N Reference Range: Negative Negative results, from patients with symptom onset beyond five days, should be treated as presumptive and confirmation with a molecular assay, if necessary, for patient management, may be performed. Negative results do not rule out COVID-19 and should not be used as the sole basis for treatment or patient management decisions, including infection control decisions. Negative results should be considered in the context of a patient's recent exposures, history and the presence of clinical signs and symptoms consistent with COVID-19. The Aries SARS Antigen [facility] does not differentiate between SARS-CoV and SARS-CoV-2. This test was developed and its performance characteristic determined by [employer] and validated at [facility]. This test has not been FDA cleared or approved. This test has been authorized by FDA under an Emergency Use Authorization (EUA). This test has been validated in accordance with the FDA's Guidance Document (Policy for Diagnostics Testing in Laboratories Certified to Perform High Complexity Testing under CLIA prior to Emergency Use Authorization for Coronavirus Disease-2019 during the Public Health Emergency) issued on June 09, 2019. This test is only authorized for the duration of time the declaration that circumstances exist justifying the authorization of the emergency use of in vitro diagnostic tests for detection of SARS-CoV-2 virus and/or diagnosis of COVID-19 infection under section 564(b)(1) of the Act, 21 U.S.C. 360bbb-3(b)(1), unless the authorization is terminated or revoked sooner. SARS-CoV+SARS-CoV-2 (COVID-19) Ag [Presence] in Respiratory specimen by Rapid immunoassay Negative for SARS Antigen by [facility] PERFORMED BY: [place] [address] PATHOLOGIST PAINT PROCESS ENGINEER ANAYA SEO M.D. Normal [facility] Comment on above: Performed By: #### C OVID-19 ARIES, SOFIANEG #### [address] COVID-19 SOFIAOrdered By: Ulises Pittman on 09-25-2021 SARS-CoV+SARS-CoV-2 (COVID-19) Ag IA.rapid Ql (Resp) Negative Negative [facility] Comment on above: This is a duplicate Aries SARS Antigen (HERMINIO) result to be used for statistical tracking purpose only. No Panel InformationOrdered By: Jatinder Pittman on 09-25-2021 SARS Antigen (LFIA) [facility] Aries Ag Negativeon 09-26-19 22 Aries Ag Negative Negative Normal Negative [facility] Comment on above: Result Comment: This is a duplicate Aries SARS Antigen (HERMINIO) result to be used for statistical tracking purpose only. PERFORMED BY: [place] [address] PATHOLOGIST PAINT PROCESS ENGINEER ANAYA SEO M.D. Performed By: #### C OVID-19 ARIES, SOFIANEG #### [address] [place] STRESS/REST MULTIon 08-20 NM STRESS/REST MULTI Patient: MILDRED BRAN Exam Date: 08/20/2021 : 1945 Gender:F Ordering : DR LISANDRA RING . Admission #: [id number] Family : Order #: [id number] CLICK HERE TO VIEW EXAM RADIOLOGY REPORT PROCEDURE: RADIONUCLIDE IMAGING STRESS/REST MULTI COMPARISON: None. INDICATIONS: Dyspnea on exertion TECHNIQUE: Exam Description: Stress/Rest one day protocol gated SPECT Rest Imagin.3 mCi Tc-99m Cardiolite IV on 08/20/2021 Stress Imaging 25.9 mCi Tc-99m Cardiolite IV on 08/23/2021 Exercise Protocol: Juan Heart Rate (bpm): Rest: 74 Max: 127 PMHR: 86 Blood Pressure: Rest: 130/88 Max: 190/92 Exercise Time: Minutes: 3 Seconds: 30 Stage Reached: Stage: 1 Mets 4.6 Symptoms: Rest and peak stress ECG findings were equivocal and the exercise portion of the study was Equivocal per attending physician Dr. Ring due to minor changes in lead III. For more details please see separate cardiac stress test report. FINDINGS: QUALITY OF STUDY: Excellent. PERFUSION DEFECT: None. LOCATION: N/A SIZE: N/A. SEVERITY: N/A. TYPE: N/A. WALL MOTION: Normal. LV SIZE: Normal. 59 mL. TID / TCD: None; 1.0 LVEF: Normal. Calculated EF 81%. SUMMARY: Myocardial perfusion imaging study is NORMAL. CONCLUSION: 1. Normal nuclear medicine myocardial perfusion scan. Dictated by: Carl West M.D. on 08/23/2021 at 14:47 Approved by: Carl West M.D. on 08/23/2021 at 14:53 Normal The [facility] CBC AUTO DIFFon 08-15-2021 BASO # 0.0 103/ul Normal 0.0-0.1 The [facility] Comment on above: Performed By: #### C BC #### [facility] [address] [place] [address] Dr. Burke Driscoll Basophils/100 WBC (Bld) 0.6 % Normal 0.2-2.0 [facility] Comment on above: Performed By: #### C BC #### [facility] [address] [place] [address] Dr. Burke Driscoll EO # 0.1 103/ul Normal 0.0-0.7 The [facility] Comment on above: Performed By: #### C BC #### [facility] [address] [place] [address] Dr. Burke Driscoll Eosinophils/100 WBC (Bld) 2.1 % Normal 0.9-7.0 The [facility] Comment on above: Performed By: #### C BC #### [facility] [address] [place] [address] Dr. Burke Driscoll Erythrocyte distribution width (RBC) [Ratio] 12.6 % Normal 11.0-15.0 The [facility] Comment on above: Performed By: #### C BC #### [facility] [address] [place] [address] Dr. Burke Driscoll Hematocrit (Bld) [Volume fraction] 40.5 % Normal 36.0-48.0 [facility] Comment on above: Performed By: #### C BC #### [facility] [address] [place] [address] Dr. Burke Driscoll Hemoglobin (Bld) [Mass/Vol] 12.7 g/dL Normal 12.0-16.0 [facility] Comment on above: Performed By: #### C BC #### [facility] [address] [place] [address] Dr. Burke Driscoll IG # 0.02 10e3/ul Normal 0.00-0.03 The [facility] Comment on above: Performed By: #### C BC #### [facility] [address] [place] [address] Dr. Burke Driscoll IG % 0.4 % Normal 0.0-0.5 The [facility] Comment on above: Performed By: #### C BC #### The [facility] [address] [place] [address] Dr. Burke Driscoll LYMPH # 1.5 103/ul Normal 1.2-3.8 The [facility] Comment on above: Performed By: #### C BC #### [facility] [address] [place] [address] Dr. Burke Driscoll Lymphocytes/100 WBC (Bld) 29.6 % Normal 20.5-60.0 [facility] Comment on above: Performed By: #### C BC #### [facility] [address] [place] [address] Dr. Burke Driscoll MANUAL DIFF REQ NO Normal The [facility] Comment on above: Performed By: #### C BC #### [facility] [address] [place] [address] Dr. Burke Driscoll MCH (RBC) [Entitic mass] 29.1 pg Normal 26.7-34.0 The [facility] Comment on above: Performed By: #### C BC #### [facility] [address] [place] [address] Dr. Burke Driscoll MCHC (RBC) [Mass/Vol] 31.4 g/dL Normal 29.9-35.2 The [facility] Comment on above: Performed By: #### C BC #### [facility] [address] [place] [address] Dr. Burke Driscoll MCV (RBC) [Entitic vol] 92.9 fL Normal 81.0-99.0 [facility] Comment on above: Performed By: #### C BC #### [facility] [address] [place] [address] Dr. Burke Driscoll MONO # 0.5 103/ul Normal 0.3-0.8 [facility] Comment on above: Performed By: #### C BC #### [facility] [address] [place] [address] Dr. Burke Driscoll Monocytes/100 WBC (Bld) 8.8 % Normal 1.7-12.0 The [facility] Comment on above: Performed By: #### C BC #### [facility] [address] [place] [address] Dr. Burke Driscoll NEUT # 3.0 103/ul Normal 1.4-6.5 The [facility] Comment on above: Performed By: #### C BC #### [facility] [address] [place] [address] Dr. Burke Driscoll Neutrophils/100 WBC (Bld) 58.5 % Normal 43.0-75.0 [facility] Comment on above: Performed By: #### C BC #### [facility] [address] [place] [address] Dr. Burke Driscoll Platelet mean volume (Bld) [Entitic vol] 10.0 fL Normal 9.5-13.5 [facility] Comment on above: Performed By: #### C BC #### [facility] [address] [address] [address] Burke Driscoll PLT 229 103/ul Normal 150-450 The [facility] Comment on above: Performed By: #### C BC #### [facility] [address] [place] [address] Dr. Burke Driscoll RBC 4.36 106/ul Normal 4.20-5.40 [facility] Comment on above: Performed By: #### C BC #### [facility] [address] [place] [address] Dr. Burke Driscoll WBC 5.1 103/ul Normal 4.0-11.0 The [facility] Comment on above: Performed By: #### C BC #### [facility] [address] [place] [address] Dr. Burke Driscoll FREE T3on 08-15-2021 FREE T3 2.38 pg/mlL Normal 2.18-3.98 [facility] Comment on above: Performed By: #### T SH, FT3, LIPID, CMP #### [facility] [address] [place] [address] Dr. Burke Driscoll FREE T4on 08-15-2021 Free T4 [Mass/Vol] 0.84 ng/dL Normal 0.76-1.46 The [facility] Comment on above: Performed By: #### F T4 ####[facility] [id number] [address]Dr. Burke Driscoll LIPID PROFILEon 08-15-2021 CHOL-HDL RATIO NORM SEE BELOW Normal The [facility] Comment on above: Result Comment: 3.3 - 4.4 LOW RISK 4.4 - 7.1 AVERAGE RISK 7.1 - 11.0 MODERATE RISK >11.0 HIGH RISK Performed By: #### T SH, FT3, LIPID, CMP #### [facility] [address] [address] [address] Burke Driscoll Cholesterol [Mass/Vol] 197 mg/dL Normal <=200 [facility] Comment on above: Performed By: #### T SH, FT3, LIPID, CMP #### [facility] [address] [address] [address] Burke Driscoll Cholesterol in HDL [Mass/Vol] 63 mg/dL Critically high 40-60 [facility] Comment on above: Performed By: #### T SH, FT3, LIPID, CMP #### [facility] [address] [place] [address] Dr. Burke Driscoll Cholesterol in LDL [Mass/Vol] 108.6 mg/dL Normal [facility] Comment on above: Performed By: #### T SH, FT3, LIPID, CMP #### [facility] [address] [place] [address] Dr. Burke Driscoll Cholesterol.total/C holesterol in HDL [Mass ratio] 3.1 {ratio} Normal [facility] Comment on above: Performed By: #### T SH, FT3, LIPID, CMP #### [facility] [address] [place] [address] Dr. Burke Driscoll HDL NORMAL > or = 60 mg/dl - LOW CARDIOVASCULAR RISK <40 mg/dl - HIGH CARDIOVASCULAR RISK Normal [facility] Comment on above: Performed By: #### T SH, FT3, LIPID, CMP #### [facility] [address] [place] [address] Dr. Burke Driscoll LDL CALC NORMAL SEE BELOW Normal The [facility] Comment on above: Result Comment: <100 mg/dl OPTIMAL 100 - 129 mg/dl NEAR OR ABOVE OPTIMAL 130 - 159 mg/dl BORDERLINE HIGH 160 - 189 mg/dl HIGH >190 mg/dl VERY HIGH Performed By: #### T SH, FT3, LIPID, CMP #### [facility] [address] [place] [address] Dr. Burke Driscoll Triglyceride [Mass/Vol] 127 mg/dL Normal <=150 The [facility] Comment on above: Performed By: #### T SH, FT3, LIPID, CMP #### [facility] [address] [address] [address] Burke Driscoll VLDL CALC 25.4 mg/dL Normal [facility] Comment on above: Performed By: #### T SH, FT3, LIPID, CMP #### [facility] [address] [address] [address] Burke Driscoll PROF 14(COMP METB)on 022 Albumin [Mass/Vol] 3.5 g/dL Normal 3.4-5.0 [facility] Comment on above: Performed By: #### T SH, FT3, LIPID, CMP #### [facility] [address] [place] [address] Dr. Burke Driscoll Albumin/Globulin [Mass ratio] 0.9 {ratio} Normal [facility] Comment on above: Performed By: #### T SH, FT3, LIPID, CMP #### [facility] [address] [place] [address] Dr. Burke Driscoll ALP [Catalytic activity/Vol] 177 U/L Critically high 46-116 [facility] Comment on above: Performed By: #### T SH, FT3, LIPID, CMP #### [facility] [address] [place] [address] Dr. Burke Driscoll ALT [Catalytic activity/Vol] 35 U/L Normal 14-59 [facility] Comment on above: Performed By: #### T SH, FT3, LIPID, CMP #### [facility] [address] [place] [address] Dr. Burke Driscoll Anion gap [Moles/Vol] 10.9 mmol/L Normal [facility] Comment on above: Performed By: #### T SH, FT3, LIPID, CMP #### [facility] [address] [place] [address] Dr. Burke Driscoll AST [Catalytic activity/Vol] 16 U/L Normal 15-37 [facility] Comment on above: Performed By: #### T SH, FT3, LIPID, CMP #### [facility] [address] [address] [address] Burke Driscoll Bilirubin [Mass/Vol] 0.3 mg/dL Normal 0.2-1.0 The [facility] Comment on above: Performed By: #### T SH, FT3, LIPID, CMP #### [facility] [address] [place] [address] Dr. Burke Driscoll Calcium [Mass/Vol] 8.7 mg/dL Normal 8.5-10.1 The [facility] Comment on above: Performed By: #### T SH, FT3, LIPID, CMP #### [facility] [address] [place] [address] Dr. Burke Driscoll Chloride [Moles/Vol] 103 mmol/L Normal 98-107 The [facility] Comment on above: Performed By: #### T SH, FT3, LIPID, CMP #### [facility] [address] [place] [address] Dr. Burke Driscoll CO2 [Moles/Vol] 30.3 mmol/L Normal 21.0-32.0 The [facility] Comment on above: Performed By: #### T SH, FT3, LIPID, CMP #### [facility] [address] [place] [address] Dr. Burke Driscoll Creatinine [Mass/Vol] 0.64 mg/dL Normal 0.55-1.02 [facility] Comment on above: Performed By: #### T SH, FT3, LIPID, CMP #### [facility] [address] [place] [address] Dr. Burke Driscoll EGFR-AF SLOVAK >60 Normal >=60 The [facility] Comment on above: Performed By: #### T SH, FT3, LIPID, CMP #### [facility] [address] [place] [address] Dr. Burke Driscoll EGFR-NON AF SLOVAK >60 Normal >=60 The [facility] Comment on above: Performed By: #### T SH, FT3, LIPID, CMP #### [facility] [address] [place] [address] Dr. Burke Driscoll Globulin (S) [Mass/Vol] 3.8 g/dL Normal The [facility] Comment on above: Performed By: #### T SH, FT3, LIPID, CMP #### [facility] [address] [place] [address] Dr. Burke Driscoll Glucose [Mass/Vol] 113 mg/dL Critically high 74-106 [facility] Comment on above: Performed By: #### T SH, FT3, LIPID, CMP #### [facility] [address] [place] [address] Dr. Burke Driscoll Potassium [Moles/Vol] 4.2 mmol/L Normal 3.5-5.1 [facility] Comment on above: Performed By: #### T SH, FT3, LIPID, CMP #### [facility] [address] [place] [address] Dr. Burke Driscoll Protein [Mass/Vol] 7.3 g/dL Normal 6.4-8.2 [facility] Comment on above: Performed By: #### T SH, FT3, LIPID, CMP #### [facility] [address] [place] [address] Dr. Burke Driscoll Sodium [Moles/Vol] 140 mmol/L Normal 136-145 [facility] Comment on above: Performed By: #### T SH, FT3, LIPID, CMP #### [facility] [address] [place] [address] Dr. Burke Driscoll Urea nitrogen [Mass/Vol] 20.0 mg/dL Critically high 7.0-18.0 [facility] Comment on above: Performed By: #### T SH, FT3, LIPID, CMP #### [facility] [address] [place] [address] Dr. Burke Driscoll Urea nitrogen/Creatinine [Mass ratio] 31.2 mg/mg Normal [facility] Comment on above: Performed By: #### T SH, FT3, LIPID, CMP #### [facility] [address] [place] [address] Dr. Burke Driscoll TSHon 08-15-2021 TSH 1.418 uIU/mL Normal 0.358-3.740 [facility] Comment on above: Performed By: #### T SH, FT3, LIPID, CMP #### [facility] [address] [place], [place] [address] Dr. Burke Driscoll TSH RANGE SEE BELOW Normal The [facility] Comment on above: Result Comment: <0.3 4 UIU/ml HYPERTHYROID 0.34-5.60 UIU/ml EUTHYROID >5.60 UIU/ml HYPOTHYROID Performed By: #### T SH, FT3, LIPID, CMP #### [facility] [address] [place], [place] [address] Dr. Burke Driscoll WRIST LEFT 3 VWSon 1 WRIST LEFT 3 VWS [facility] Department of Radiology [address] [place] [id number] Patient Name: MILDRED BRAN : 1945 Sex: F Age: Race: White Pt. Location: Patient Status: D Ordered Date: 11/23/2020 11:35:00 AM Completed Date: 11/23/2020 11:41 AM Requesting Provider: ABDI WIGGINS Attending Provider: ABDI WIGGINS Report Copy To: Signs & Symptoms: M79.641 Pain in right hand I10 History: Ransom Comments: Evaluate Exam: WRIST LEFT 3 VWS WRIST LEFT 3 VWS HISTORY: Arthritis, wrist pain. COMPARISON: None. IMPRESSION: 1. Severe first CMC arthritis, osteopenia, no appreciable fracture. No malalignment. 2. If there is concern for occult scaphoid fracture, recommend repeat radiographs in 7-10 days or evaluation with cross-sectional imaging. Electronically signed: Austin Salazar. Transcribed by: [email or web address], User Resident: Electronically Signed by: AUSTIN SALAZAR @ 11/24/2020 08:02 PM Normal [facility] Comment on above: Order Comment: Evalu ate WRIST RIGHT 3 VWSon 11-24-19 21 WRIST RIGHT 3 VWS [facility] Department of Radiology [address] [place] [id number] Patient Name: MILDRED BRAN : 1945 Sex: F Age: Race: White Pt. Location: Patient Status: D Ordered Date: 11/23/2020 11:35:00 AM Completed Date: 11/23/2020 11:41 AM Requesting Provider: ABDI WIGGINS Attending Provider: ABDI WIGGINS Report Copy To: Signs & Symptoms: M79.641 Pain in right hand I10 History: Ransom Comments: Evaluate Exam: WRIST RIGHT 3 VWS WRIST RIGHT 3 VWS HISTORY: Arthritis, wrist pain. COMPARISON: None. IMPRESSION: 1. Severe first CMC arthritis. No appreciable fracture. No malalignment. 2. If there is concern for occult scaphoid fracture, recommend repeat radiographs in 7-10 days or evaluation with cross-sectional imaging. Electronically signed: Austin Salazar. Transcribed by: [id number], User Resident: Electronically Signed by: AUSTIN SALAZAR @ 11/24/2020 08:02 PM Normal [facility] Comment on above: Order Comment: Evalu ate SURGICAL PATH REPORTon 08-24 SURGICAL PATH REPORT [facility] Department of Pathology [address] [place] [phone] Name: MILDRED BRAN : 1945 Financial [id number] Number: Gender: Female Location: [facility]; [facility]; 01 Admit 73 years Attending IRENA GEE MD Age: Provider: Ordering IRENA GEE MD Provider: Consulting: Surgical Pathology Report ACCESSION: COLLECTED DATE/TIME: RECEIVED DATE/TIME: PATHOLOGIST: [id number] 08/23/2019 13:06 EDT 08/23/2019 14:02 EDT SHIMA EDDY MD Final Diagnosis BONE/TISSUE OF LEFT KNEE, TOTAL KNEE REPLACEMENT: - CONSISTENT WITH DEGENERATIVE OSTEOARTHRITIS. SHIMA EDDY PATHOLOGIST (Electronic Signature) Date Verified 08/25/2019 Clinical Data PREOP DIAGNOSIS: BILATERAL PRIMARY OSTEOARTHRITIS OF KNEE POSTOP DIAGNOSIS: BILATERAL PRIMARY OSTEOARTHRITIS OF KNEE PROCEDURE: LEFT TKR SPECIMEN: BONE/TISSUE LEFT KNEE Gross Description Labeled bone/tissue left knee. Received in formalin are multiple fragments of bone and soft tissue. The osseous segments measure 14.8 x 9.0 x 3.0 cm with the largest segment measuring 7.5 x 4.9 x 1.0 cm. The soft tissue segments have an aggregate dimension of 7.5 x 6.6 x 4.1 cm. The bone segments include recognizable portions of the tibial plateau and the femoral condyle. The articular surface is markedly roughened and shows areas of cartilaginous loss and eburnation of the bony surface. The soft tissue is gold pink to yellow and includes fragments of meniscus. Director Of Vendor Management soft and decalcified tissue sections are submitted in two cassettes. MP:theron 08/23/2019 Codes CPT CODE: 18160 + [id number] Print Date08/25/2019 13:52 EDT Number: Time: Normal [facility] Comment on above: Performed By: #### 1 [id number] #### [facility] [address] [place] [address] Behavioral Therapy Coordinator: Floyd Ann MD Anesthesiaon 08-24-2019 Anesthesia Patient: MILDRED BRAN Age: 73 years Sex: Female : 1945 Associated Diagnoses: None Author: MELISSA FITCH DO Postoperative Information Post Operative Info: Procedure/ Case: TKA, Surgeon: IRENA GEE MD. Assessment Postanesthesia assessment Vitals: Vital Signs 08/24/2019 8:34 EDT Peripheral Pulse Rate 90 bpm NORMAL SpO2 96 % NORMAL 08/24/2019 8:34 EDT Systolic Blood Pressure 109 mmHg NORMAL Diastolic Blood Pressure 62 mmHg NORMAL Mean Arterial Pressure, Cuff 78 mmHg , stable hemodynamics, Normothermia. Mental status: at preoperative baseline. Respiratory support: normal oxygenation and ventilation. Pain: controlled. Nausea status: absence of nausea and vomiting. Postoperative hydration status: euvolemic. Normal [facility] [place] BASICMETAon 08-24-2019 Calcium [Mass/Vol] 8.5 mg/dL Normal 8.5-10.5 [facility] Comment on above: Performed By: #### 1 95396, [id number] ####[facility] [address] [place] [address] Medical Director: Floyd Ann MD Chloride [Moles/Vol] 106 mmol/L Normal 100-109 [facility] [place] Comment on above: Performed By: #### 1 90413, 063291 ####[facility] [address] [place] [address] Medical Director: Floyd Ann MD CO2, venous 29.0 mmol/L Normal 21.0-32.0 [facility] [place] Comment on above: Performed By: #### 1 96329, 248973 ####[facility] [address] [place] [address] Medical Director: Floyd Ann MD Creatinine [Mass/Vol] 0.6 mg/dL Normal 0.6-1.0 [facility] [place] Comment on above: Performed By: #### 1 41189, [id number] ####[facility] [address] [place], [place] [id number]) [phone] Director: Floyd Ann MD GFR AA >60 Normal [facility] [place] Comment on above: Result Comment: Afri can French GFR Calc Medical judgement is necessary to interpret GFR. The calculated GFR may not accurately reflect renal status in patients >70 years, women, acutely ill hospitalized patients and patients with acute renal failure or known renal disease. The MDRD GFR formula is valid only for adults greater than 18 years of age. Note: Creatinine clearance (not GFR) should be used for drug dosing. Performed By: #### 1 84040, [id number] ####[facility] [address] [place] [address] Medical Director: Floyd Ann MD GFR/1.73 sq M predicted among non-blacks MDRD (S/P/Bld) [Vol rate/Area] mL/min/{1.73_m2} Normal [facility] [place] Comment on above: Result Comment: Non GFR Calc Medical judgement is necessary to interpret GFR. The calculated GFR may not accurately reflect renal status in patients >70 years, women, acutely ill hospitalized patients and patients with acute renal failure or known renal disease. The MDRD GFR formula is valid only for adults greater than 18 years of age. Note: Creatinine clearance (not GFR) should be used for drug dosing. Performed By: #### 1 63937, [id number] ####[facility] [address] [place] [address] Medical Director: Floyd Ann MD Glucose [Mass/Vol] 127 mg/dL High 72-100 [facility] Comment on above: Result Comment: Radha puncture should occur prior to sulfasalazine administration due to the potential for falsely depressed results. Venipuncture should occur prior to sulfapyridine administration due to the potential falsely elevated results. Baseline assay values before administration of sulfasalazine and sulfapyridine therapy would not be affected. Performed By: #### 1 00110, [id number] ####[facility] [address] [place] [address] Medical Director: Floyd Ann MD Osmolality [Osmolality] 285 mOsm/kg Normal 275-295 [facility] [place] Comment on above: Performed By: #### 1 24762, 916704 ####[facility] [address] [place] [address] Medical Director: Floyd Ann MD Potassium [Moles/Vol] 3.7 mmol/L Normal 3.5-5.1 [facility] [place] Comment on above: Performed By: #### 1 05990, 364967 ####[facility] [address] [place] [address] Medical Director: Floyd Ann MD Sodium [Moles/Vol] 141 mmol/L Normal 135-145 [facility] Comment on above: Performed By: #### 1 27909, 775066 ####[facility] [address] [place] [address] Medical Director: Floyd Ann MD Urea nitrogen [Mass/Vol] 18 mg/dL Normal 10-20 [facility] [place] Comment on above: Performed By: #### 1 78498, 071198 ####[facility] [address] [place] [address] Medical Director: Floyd Ann MD Urea nitrogen/Creatinine [Mass ratio] 28.7 mg/mg Normal [facility] Comment on above: Performed By: #### 1 27462, 208875 ####[facility] [address] [place] [address] Medical Director: MD Romina Carlson 08-24-2019 [facility] Actions See Notes Abnormal [facility] [place] Comment on above: Result Comment: Edit Demographics SNV Performed By: #### 1 32351, 129884 ####[facility] [address] [place] [address] Medical Director: Floyd Ann MD Erythrocyte distribution width (RBC) [Ratio] 14.0 % Normal 11.5-14.5 [facility] [place] Comment on above: Performed By: #### 1 15351, [id number] ####[facility] [address] [place], [place] [id number]) [phone] Director: Floyd Ann MD Hematocrit (Bld) [Volume fraction] 35.8 % Low 36.0-46.0 [facility] Comment on above: Performed By: #### 1 68057, 972713 ####[facility] [address] [place] [address] Medical Director: Floyd Ann MD Hemoglobin (Bld) [Mass/Vol] 12.0 g/dL Normal 12.0-16.0 [facility] Comment on above: Performed By: #### 1 87378, 636105 ####[facility] [address] [place] [address] Medical Director: Floyd Ann MD MCH (RBC) [Entitic mass] 29.7 pg Normal 27.0-34.0 [facility] Comment on above: Performed By: #### 1 04203, 185374 ####[facility] [address] [place] [address] Medical Director: Floyd Ann MD MCHC (RBC) [Mass/Vol] 33.5 g/dL Normal 32.0-37.0 [facility] [place] Comment on above: Performed By: #### 1 51070, 637122 ####[facility] [address] [place] [address] Medical Director: Floyd Ann MD MCV (RBC) [Entitic vol] 88.7 fL Normal 80.0-100.0 [facility] [place] Comment on above: Performed By: #### 1 74268, 607305 ####[facility] [address] [place] [address] Medical Director: Floyd Ann MD Platelet mean volume (Bld) [Entitic vol] 8.2 fL Normal 7.4-10.4 [facility] [place] Comment on above: Performed By: #### 1 59566, 383334 ####[facility] [address] [place] [address] Medical Director: Floyd Ann MD Platelets (Bld) [#/Vol] 209 x1000 Normal 150-450 [facility] [place] Comment on above: Performed By: #### 1 58853, 618831 ####[facility] [address] [place] [address] Medical Director: Floyd Ann MD RBC (Bld) [#/Vol] 4.04 x10 Low 4.20-5.40 [facility] Comment on above: Result Comment: Note : RBC morphology is normal unless otherwise stated. Evaluation performed only if differential is requested. Performed By: #### 1 64120, 869537 ####[facility] [address] [place] [address] Medical Director: Floyd Ann MD WBC (Bld) [#/Vol] 8.6 x10 Normal 4.5-11.0 [facility] Comment on above: Performed By: #### 1 90878, 024344 ####[facility] [address] [place] [address] Medical Director: Floyd Ann MD WBC (Bld) [#/Vol] 8.6 10*3/uL Normal [facility] Comment on above: Performed By: #### 1 36616, 822147 ####[facility] [address] [place] [address] Medical Director: Floyd Ann MD Progress Note-Physicianon Progress Note-Physician Patient: MILDRED BRAN Age: 73 years Sex: Female : 1945 Associated Diagnoses: None Author: KWAN LAMBERT MD Subjective Patient is doing well, ambulating with PT though states she has significant knee pain. Denies sob or chest pain. Objective Vital Signs (last 24 hrs) Last Charted Temp Oral 36.9 degC (AUG 23 04:00) Resp Rate 18 br/min (AUG 23 08:00) SBP 109 mmHg (AUG 23 08:34) DBP 62 mmHg (AUG 23 08:34) Weight 98.3 kg (AUG 22 15:57) Height 152.40 cm (AUG 22 15:57) BMI 42.32 (AUG 22 15:57) General: Alert and oriented. Eye: Extraocular movements are intact, Normal conjunctiva. HENT: Normocephalic. Neck: Supple, No jugular venous distention. Respiratory: Lungs are clear to auscultation, Respirations are non-labored, Breath sounds are equal. Cardiovascular: Normal rate, Regular rhythm. Gastrointestinal: Soft, Non-distended. Integumentary: Warm, Dry. Neurologic: Alert, Oriented, Cranial Nerves II-XII are grossly intact. Psychiatric: Cooperative, Appropriate mood & affect. Review / Management Labs (Last four charted values) WBC 8.6 (AUG 23) 5.5 (AUGUST 04) Hgb 12.0 (AUG 23) 13.8 (AUGUST 04) Hct L 35.8 (AUG 23) 41.8 (AUGUST 04) Plt 209 (AUG 23) 261 (AUGUST 04) Na 141 (AUG 23) 139 (AUGUST 04) K 3.7 (AUG 23) 4.5 (AUGUST 04) CO2 29.0 (AUG 23) 28.8 (AUGUST 04) Cl 106 (AUG 23) 103 (AUGUST 04) Cr 0.6 (AUG 23) 0.6 (AUGUST 04) BUN 18 (AUG 23) H 22 (AUGUST 04) Glucose Random H 127 (AUG 23) 80 (AUGUST 04) Ca 8.5 (AUG 23) 9.1 (AUGUST 04) INR .9 (AUGUST 04) Impression and Plan S/P L TKA - PT/OT - Monitor for blood loss anemia. - Pain control and vte prophylaxis per orthopedic surgery Elevated blood-pressure reading, without diagnosis of hypertension: blood pressure was 160/81 after surgery. She was in severe pain and bp now controlled. - Continue HCTZ. - Monitor blood pressure. - Monitor renal function closely Morbid (severe) obesity due to excess calories: - Weight loss encouraged. Hypothyroidism, unspecified: - Continue levothyroxine. ROSARIO - overnight oximetry completed DVT prophylaxis: will defer to orthopedic surgery. Normal [facility] Anesthesiaon 08-23-2019 Anesthesia Patient: MILDRED BRAN Age: 73 years Sex: Female : 1945 Associated Diagnoses: None Author: MELISSA FITCH DO DIAGNOSIS: LEFT KNEE PRIMARY OSTEOARTHRITIS Preoperative Information Procedure/ Case: LEFT TKA NPO greater than 8 hours. Anesthesia history Patient's history: negative. Family's history: negative. Review of Systems ALL SYSTEMS REVIEWED: CV, PULM, GI, , NEURO, HEPATIC, HEME, ENDO, PSYCH, MS HISTORY/ROS: MORBID OBESITY HTN, DENIES CP, SOB OR TN ROSARIO, WAS CORRECTED WITH UPP. PT STATES HER BREATHING IS MUCH IMPROVED, SHE COULD NOT TOLERATE HER CPAP ANYWAYS HYPOTHYROIDISM DEPRESSION STATES HER LAST KNEE BLOCKS DID NOTHING NEGATIVE COVID TEST Health Status Allergies: Allergies (4) Active Reaction Adhesive tape allergy rash albuterol excessive coughing Benzoin blister NSAIDs hx gastric bypass Current medications: Home Medications (14) Active amitriptyline 10 mg oral tablet 40 mg = 4 tabs, ORAL, QHS calcium citrate 950 mg (200 mg elemental calcium) oral tablet 1,900 mg = 2 tabs, ORAL, DAILY CeleBREX 200 mg oral capsule 200 mg = 1 caps, ORAL, BID Cogniforce Tablets 2 tabs, ORAL, DAILY ferrous sulfate 325 mg (65 mg elemental iron) oral tablet 325 mg = 1 tabs, ORAL, DAILY Flax Seed Oil oral capsule 1 caps, ORAL, DAILY glucosamine with potassium chloride tablet 1 tabs, ORAL, DAILY hydroCHLOROthiazide 12.5 mg oral tablet 12.5 mg = 1 tabs, ORAL, DAILY magnesium oxide 400 mg (241.3 mg elemental magnesium) oral tablet 400 mg = 1 tabs, ORAL, DAILY AD oral tablet 1 tabs, ORAL, DAILY Provigil 200 mg oral tablet 100 mg = 0.5 tabs, ORAL, DAILY PROzac 40 mg oral capsule 40 mg = 1 caps, ORAL, DAILY Synthroid 75 mcg (0.075 mg) oral tablet 75 mcg = 1 tabs, ORAL, DAILY Vitamin D3 5000 intl units (125 mcg) oral tablet 10,000 intl_unit = 2 tabs, ORAL, DAILY LABORATORY DATA Chemistry BMP Plus Mag Glucose: 80 mg/dL (08/05/19) Calcium: 9.1 mg/dL (08/05/19) Na: 139 mmol/L (08/05/19) K: 4.5 mmol/L (08/05/19) CO2, venous: 28.8 mmol/L (08/05/19) Chloride: 103 mmol/L (08/05/19) BUN: 22 mg/dL High (08/05/19) Creatinine: 0.6 mg/dL (08/05/19) Hematology CBC brief [address] WBC: 5.5 x10 HGB: 13.8 g/dL (08/05/19) HCT: 41.8 % (08/05/19) Platelet: 261 x1000 (08/05/19) Coagulation PT INR [address] APTT Patient: 27.9 seconds (08/05/19) INR: 0.9 (08/05/19) Test No qualifying data available. Histories Past Medical History: No qualifying data available Procedure history: RIGHT TOTAL KNEE REPLACEMENT on 04/21/2019 at 73 Years. Gastric bypass. Herniorrhaphy. Rotator cuff repair. Hysterectomy. Appendectomy. Uvulopalatopharyngop lasty. Social History Social History Alcohol Current, Beer, 1-2 times per year Home/Environment Lives with Mother. Living situation: Home/Independent. Home equipment: None, Walker/Cane. Home monitoring equipment: None. Special/Community resources: None. Mobility prior to admit: Independent. Home Barriers: None. Will patient require additional/new services upon discharge? No. Substance Abuse Denies Substance Abuse (04/06/2019) Tobacco Former smoker, quit more than 30 days ago Tobacco Use:. Cigarettes, 3 year(s). Comment: quit 21 yrs ago (04/06/2019 09:02 - Stefany Hearn RN) Psychosocial History No active psychosocial history has been recorded. Physical Examination VITALS Vital Signs (last value in last 48 hours) Temperature Temporal Artery: 36.6 degC (08/23/19 09:31:00) Respiratory Rate: 18 br/min (08/23/19:31:00) Heart Rate Monitored: 81 bpm (08/23/19::00) Systolic Blood Pressure: 141 mmHg High (08/23/19:31:00) Diastolic Blood Pressure: 66 mmHg (08/23/19::) SpO2: 96 % (08/23/19::)Height and Weight (last value in last 48 hours) Height/Length Dosin.4 cm (08/23/19:31:00) Weight Measured: 96.6 kg (08/23/19:31:00) General: Alert and oriented. Airway: Mallampati classification: II (soft palate, fauces, uvula visible). Neck: No carotid bruit. Respiratory: Lungs are clear to auscultation. Cardiovascular: Normal rate, Regular rhythm, No murmur. Review / Management ECG interpretation: Normal sinus rhythm, No ST-T changes. Assessment and Plan [place] Society of Anesthesiologists (ASA) physical status classification: Class III. Anesthetic Preoperative Plan Anesthetic technique: General anesthesia. Regional: SAPHENOUS AND IPACK BLOCKS. Special monitoring: Standard ASA monitors.. Risks discussed: nausea, vomiting, sore throat, dental injury, hypotension, allergic reaction, serious complications, Pneumonia. Informed consent: signed by patient. Notes: ALL QUESTIONS ANSWERED,RBA DISUCSSED AND SHE WISHES TO PROCEED. Normal [facility] Consult Reporton 08-23-2019 Consult Report Patient: MILDRED BRAN Age: 73 years Sex: Female : 1945 Associated Diagnoses: None Author: KWAN LAMBERT MD Reason for consultation: Elevated blood pressure Chief Complaint: Elective L TKA HPI: Ms. Bran is a 73 year old lady who presented for elective left total knee replacement. She failed conservative management and is s/p R TKA in April. Surgery was uneventful. She had severe pain after recovering from anesthesia. Her blood pressure was as high as 160/83, she was also hypertensive following prior TKA. She denies any history of HTN although she is on HCTZ. Her blood pressure has improved with treatment of her pain. She denies any headaches, chest pain, shortness of breath, palpitations, blurry vision, dizziness or lightheadedness. PMHx: - Morbid obesity - Depression - Hypothyroidism - OA - ROSARIO (intolerant of NIPPV). - Kidney stones - ?HTN on hctz PSHx: - Right total knee replacement on 04/21/2019 - Left rotator cuff repair x 2 - Gastric bypass - Incisional hernia repair - Appendectomy - Hysterectomy SHx: smoked briefly several years ago. No EtOH use. FHx: father in his 80s from complications of Parkinson's disease. Mother is 99. She has heart disease, thyroid disease and HTN. Allergies (4) Active Reaction Adhesive tape allergy rash albuterol excessive coughing Benzoin blister NSAIDs hx gastric bypass Home Medications (14) Active amitriptyline 10 mg oral tablet 40 mg = 4 tabs, ORAL, QHS calcium citrate 950 mg (200 mg elemental calcium) oral tablet 1,900 mg = 2 tabs, ORAL, DAILY CeleBREX 200 mg oral capsule 200 mg = 1 caps, ORAL, BID Cogniforce Tablets 2 tabs, ORAL, DAILY ferrous sulfate 325 mg (65 mg elemental iron) oral tablet 325 mg = 1 tabs, ORAL, DAILY Flax Seed Oil oral capsule 1 caps, ORAL, DAILY glucosamine with potassium chloride tablet 1 tabs, ORAL, DAILY hydroCHLOROthiazide 12.5 mg oral tablet 12.5 mg = 1 tabs, ORAL, DAILY magnesium oxide 400 mg (241.3 mg elemental magnesium) oral tablet 400 mg = 1 tabs, ORAL, DAILY AD oral tablet 1 tabs, ORAL, DAILY Provigil 200 mg oral tablet 100 mg = 0.5 tabs, ORAL, DAILY PROzac 40 mg oral capsule 40 mg = 1 caps, ORAL, DAILY Synthroid 75 mcg (0.075 mg) oral tablet 75 mcg = 1 tabs, ORAL, DAILY Vitamin D3 5000 intl units (125 mcg) oral tablet 10,000 intl_unit = 2 tabs, ORAL, DAILY Review of Systems: complete 10 system ros negative except as noted in the HPI Physical Exam: Vital Signs (last 24 hrs) Last Charted Temp Oral 36.7 degC (AUG 22 15:46) Resp Rate 12 br/min (AUG 22:47) SBP 137 mmHg (AUG 22:46) DBP 79 mmHg (AUG 22:) Weight 98.3 kg (AUG 22:57) Height 152.40 cm (AUG 22:) BMI 42.32 (AUG 22:) General: alert, no acute distress, obese, resting in bed HENT: normocephalic, atraumatic, pupils equal round and reactive to light. Extraocular movements are intact. Neck: supple, non-tender, no carotid bruit. Heart: regular rate and rhythm. No murmurs, rubs or gallops, normal S1 & S2. Lungs: clear to auscultation bilaterally, no wheezing or rhonchi. Abdomen: soft, nontender, normal bowel sounds. Extremities: no cyanosis clubbing or edema. Both legs are wrapped. Neuro: alert, oriented to time, person and place. Pscyh: appropriate mood and affect. Cooperative. Skin: no rashes or lesions. Labs (Last four charted values) WBC 5.5 (AUGUST 04) Hgb 13.8 (AUGUST 04) Hct 41.8 (AUGUST 04) Plt 261 (AUGUST 04) Na 139 (AUGUST 04) K 4.5 (AUGUST 04) CO2 28.8 (AUGUST 04) Cl 103 (AUGUST 04) Cr 0.6 (AUGUST 04) BUN H 22 (AUGUST 04) Glucose Random 80 (AUGUST 04) Ca 9.1 (AUGUST 04) INR .9 (AUGUST 04) Assessment and Plan: S/P L TKA - PT/OT - Monitor for blood loss anemia. - Pain control and vte prophylaxis per orthopedic surgery Elevated blood-pressure reading, without diagnosis of hypertension: blood pressure was 160/81 after surgery. She was in severe pain. She denies any history of HTN although she is on HCTZ. Blood pressure is better controlled. - Continue HCTZ. - Monitor blood pressure. - Monitor renal function closely Morbid (severe) obesity due to excess calories: - Weight loss encouraged. Hypothyroidism, unspecified: - Continue levothyroxine. ROSARIO - overnight oximetry DVT prophylaxis: will defer to orthopedic surgery. Normal [facility] Nursing Clinical Noteon 08-07 Nursing Clinical Note patient continued to fall asleep frequently while in PACU. When awake, patient yells out that she is in pain. laying comfortably in bed, asks for ice chips frequently. will continue to assess for pain and her respiratory status Normal [facility] OR Nursing Record - Main Alessia n 08-23-2019 OR Nursing Record - Main OR Normal [facility] Operative Reporton 0 Operative Report Patient: MILDRED BRAN Age: 73 years Sex: Female : 1945 Associated Diagnoses: None Author: IRENA GEE MD SURGEON: Irena Gee MD DIAGNOSIS: Osteoarthritis, left knee. PROCEDURE: Left total knee replacement. EBL: 100 Anesthesia: General and block Assistants: Emely HISTORY: This is a patient who failed an aggressive conservative care plan for DJD of the knee. It was thought that further conservative care would no longer benefit the patient. After understanding risk and benefits the patient consented to the procedure. This female had significant patellofemoral DJD PROCEDURE IN DETAIL: Brought to the operating room, prophylactic antibiotics, saphenous and sciatic nerve block, prepped and draped in normal sterile fashion. The patient was injected intra-articularly also. Tourniquet was up briefly during the case at 275 mmHg. A standard midline incision medial parapatellar arthrotomy performed. ACL and PCL were released. Using the extramedullary tibial cutting guide, tibia was cut appropriately. Alignment guide showed good alignment of the tibial cut. Using the Sigma RP system, sequential femoral cutting jigs were used to cut the femur. Along the way, per standard technique, flexion and extension gaps were balanced as was medial and lateral stability. It was apparent that a size Sigma RP 2.5 femur, a size 12.5 mm Sigma RP polyethylene plastic, size 2 tibial tray and a 35 mm patellar button best fit the patient. Finishing cuts were performed on the femur, tibia and patella. With the trial components in place, there was good stability in flexion and extension, good patellar tracking and good motion. Trial components were removed. Bony surfaces were copiously irrigated and allowed to dry. Permanent components were cemented in place. The cement was allowed to harden and carefully cleaned. With the permanent components in place, there was good stability in flexion and extension, good patellar tracking, good motion. Tourniquet was let down. There was no excessive bleeding. Copious amounts of antibiotic irrigation were performed. We injected intra-articularly with TXA. Drain was placed. Found to be free from attachment at the end of the case. Deep fascia closed with #2 suture, subcutaneous tissue with 2-0 suture and skin was closed with kassandra. Sterile bandage applied. The patient was awakened from anesthesia and taken to recovery room in stable condition. Electronically Co-Signed by: IRENA GEE MD on 08/23/2019 13:49 EDT Electronically Co-Signed by: IRENA GEE MD on 08/23/2019 13:52 EDT Normal [facility] PACU Phase I - Main ORon PACU Phase I - Main OR PACU Phase I - Main OR Summary Primary Physician: IRENA GEE MD Finalized Date/Time: 08/23/19 15:49:45 Pt. Name: MILDRED BRAN /Sex: 1945 Female Med Rec #: [id number] Physician: IRENA GEE MD Financial #: [id number] Pt. Type: I Room/Bed: J529/01 Admit/Disch: 08/23/19 09:29:54 - Institution: PACU I - Case Times - Main OR Entry 1 In PACU I 08/23/19 13:56:00 Ready for Transfer 08/23/19 15:45:00 Last Modified By: Amie Knott RN 08/23/19 15:49:41 Finalized By: Amie Knott RN Document Signatures Signed By: Amie Knott RN 08/23/19 15:36 Amie Knott RN 08/23/19 15:49 Amie Knott RN 08/23/19 15:49 Normal [facility] Preop - Main ORon 08-23-2019 Preop - Main OR Preop - Main OR Summary Primary Physician: IRENA GEE MD Finalized Date/Time: 08/23/19 10:15:19 Pt. Name: MILDRED BRAN /Sex: 1945 Female Med Rec #: [id number] Physician: IRENA GEE MD Financial #: [id number] Pt. Type: I Room/Bed: [place] [address] Admit/Disch: 08/23/19 09:29:54 - Institution: Preop - Case Times - Main OR Entry 1 Patient Arrival Time 08/23/19 09:31:00 Patient Ready for 08/23/19 10:15:00 Surgery Last Modified By: Leilani Rojas RN 08/23/19 10:15:07 Finalized By: Leilani Rojas RN Document Signatures Signed By: Leilani Rojas RN 08/23/19 10:15 Normal [facility] XR KNEE LEFT 2 VIEWSon 08-22 XR KNEE LEFT 2 VIEWS XR KNEE LEFT 2 VIEWS CLINICAL STATEMENT: PAIN. TECHNOLOGIST NOTES: WHAT SYMPTOMS ARE YOU EXPERIENCING? - LEFT KNEE REPLACEMENT COMPARISON: None FINDINGS: Portable AP and crosstable lateral views of the left knee, taken at 1412 hours, show a total knee prosthesis to be present. The prosthesis appears to be well-seated within the bony structures, in good position and alignment. There is no fracture or dislocation. A drain is seen within the soft tissues. There is soft tissue gas or air related to surgery. IMPRESSION: Total knee prosthesis at the left knee, in good position and alignment. No fracture or dislocation. Electronically signed by: Carrie Irving MD 08/23/2019 1:24 PM CDT Technologist: YARED STEPHENS Dictated By: CARRIE IRVING MD Signed By: CARRIE IRVING MD Signed Out: 08/23/19 14:24:36 Normal [facility] COVID-19 by PCRon 08-21-2019 COVID-19 by PCR [facility] Not Detected Normal [facility] Comment on above: Result Comment: PERF [facility] LABORATORY [facility]: [address] [place] [address] For more details see scanned documents: *Reqs- Lab Documents -> Gen Lab Sendout Result:Non-Interfaced Performed By: #### 1 [id number], [id number], [id number], [id number] #### [facility] [address] [id number] Behavioral Therapy Coordinator: Floyd Ann MD CORONAVIRUS 2019 BY PCRon CORONAVIRUS 2019,PCR NOT DETECTED Normal Not Detected [facility] Comment on above: Result Comment: This assay is designed to detect the ORF1ab and/or S genes of SARS-CoV-2 via nucleic acid amplification. A Not Detected result does not preclude 2019-nCoV infection since the adequacy of sample collection and/or low viral burden may result in presence of viral nucleic acids below the clinical sensitivity of this test method. Fact sheet for providers: www.fda.gov/media/966716/download Fact sheet for patients: www.fda.gov/media/431894/download This test has received FDA Emergency Use Authorization (EUA) and has been verified by [facility] ([facility]). This test is only authorized for the duration of time that circumstances exist to justify the authorization of the emergency use of in vitro diagnostic tests for the detection of SARS-CoV-2 virus and/or diagnosis of COVID-19 infection under section 564(b)(1) of the Act, 21 U.S.C. 360bbb-3(b)(1), unless the authorization is terminated or revoked sooner. [facility] is certified under CLIA-88 as qualified to perform high complexity testing. Testing is performed in the [facility] laboratories located at [address] [place] [address]. Performed By: #### C OV19 #### [place] [address] Lab Specimen Source Nasal, Nasopharyngeal Normal [facility] Comment on above: Performed By: #### C OV19 #### [place] [address] Utilization Review Noteon Utilization Review Note Preoperative review for total knee replacement for INPT LOC appropriateness. Sent to Dr. Marie for review. INPT appropriate per PA. INPT Order entered in a planned state as per written/electronical ly signed order scanned into EMR. Normal [facility] ABIDon 08-05-2019 Antibody Identification Anti-E Normal [facility] Comment on above: Result Comment: 07/08 14:16 [id number] Previously identified Anti-E still demonstrating. Other clinically significant alloantibodies ruled out. Performed By: #### 1 [id number], [id number], [id number], [id number] #### [facility] [address] [place] [address] Behavioral Therapy Coordinator: MD Milton Carlson 08-05-2019 ABO and Rh group Nom (Bld) B Positive [facility] Comment on above: Performed By: #### 1 58707, [id number], [id number], [id number] #### [facility] [address] [place] [address] Behavioral Therapy Coordinator: Floyd Ann MD Patient History Check Previous Hx [facility] Comment on above: Performed By: #### 1 04143, 256054, [id number], [id number] #### [facility] [address] [place] [address] Behavioral Therapy Coordinator: Floyd Ann MD Urea nitrogen [Mass/Vol] 4+ [facility] Comment on above: Performed By: #### 1 87013, [id number], 461366, [id number] #### [facility] [address] [place] [address] Behavioral Therapy Coordinator: Floyd Ann MD VS 0.8% a cells 3+ [facility] Comment on above: Performed By: #### 1 38950, 563199, 447065, 536837 #### [facility] [address] [place] [address] Behavioral Therapy Coordinator: Floyd Ann MD VS 0.8% b cells 0 Normal [facility] Comment on above: Performed By: #### 1 88266, 273942, 672097, 014208 #### [facility] [address] [place] [address] Behavioral Therapy Coordinator: Floyd Ann MD VS Anti-A Unit 0 Normal [facility] Comment on above: Performed By: #### 1 43087, 453018, 591200, 480295 #### [facility] [address] [place] [address] Behavioral Therapy Coordinator: Floyd Ann MD VS Anti-D Unit 4+ [facility] Comment on above: Performed By: #### 1 12676, 200749, 689088, 740216 #### [facility] [address] [place] [address] Behavioral Therapy Coordinator: Floyd Ann MD ABSCon 08-05-2019 ABSC Final Interp Positive Abnormal [facility] Comment on above: Result Comment: 07/08 12:20 20651 See results of ABID Performed By: #### 1 95875, 643766, 721103, [id number] #### [facility] [address] [place] [address] Behavioral Therapy Coordinator: Floyd Ann MD Pt Hx check done? Yes Normal [facility] Comment on above: Performed By: #### 1 91461, 869418, 132524, 320063 #### [facility] [address] [place] [address] Behavioral Therapy Coordinator: Floyd Ann MD VS SCI Gel 0 [facility] Comment on above: Performed By: #### 1 30355, 028495, 875356, 670717 #### [facility] [address] [place] [address] Behavioral Therapy Coordinator: Floyd Ann MD VS SCII Gel 3+ [facility] Comment on above: Performed By: #### 1 56184, 348617, 881654, 154867 #### [facility] [address] [place] [address] Behavioral Therapy Coordinator: Floyd Ann MD APTTon 08-05-2019 aPTT Coag (Bld) [Time] 27.9 s Normal 25.0-35.0 [facility] Comment on above: Performed By: #### 1 59521, 623228, 121931, 888710 #### [facility] [address] [place] [address] Behavioral Therapy Coordinator: Floyd Ann MD BASICMETAon 08-05-2019 GFR AA >60 Normal [facility] Comment on above: Result Comment: Afri can French GFR Calc Medical judgement is necessary to interpret GFR. The calculated GFR may not accurately reflect renal status in patients >70 years, women, acutely ill hospitalized patients and patients with acute renal failure or known renal disease. The MDRD GFR formula is valid only for adults greater than 18 years of age. Note: Creatinine clearance (not GFR) should be used for drug dosing. Performed By: #### 1 69166, 029700, 112991, 957072 #### [facility] [address] [place] [address] Behavioral Therapy Coordinator: Floyd Ann MD GFR/1.73 sq M predicted among non-blacks MDRD (S/P/Bld) [Vol rate/Area] mL/min/{1.73_m2} Normal [facility] Comment on above: Result Comment: Non GFR Calc Medical judgement is necessary to interpret GFR. The calculated GFR may not accurately reflect renal status in patients >70 years, women, acutely ill hospitalized patients and patients with acute renal failure or known renal disease. The MDRD GFR formula is valid only for adults greater than 18 years of age. Note: Creatinine clearance (not GFR) should be used for drug dosing. Performed By: #### 1 04902, 961948, 930198, 872515 #### [facility] [address] [place] [address] Behavioral Therapy Coordinator: Floyd Ann MD Osmolality [Osmolality] 280 mOsm/kg Normal 275-295 [facility] Comment on above: Performed By: #### 1 01640, 120532, 033777, 088879 #### [facility] [address] [place] [address] Behavioral Therapy Coordinator: Floyd Ann MD Urea nitrogen/Creatinine [Mass ratio] 34.6 mg/mg Normal [facility] Comment on above: Performed By: #### 1 18033, 827568, 760252, 282199 #### [facility] [address] [place] [address]13 Behavioral Therapy Coordinator: Floyd Ann MD Calcium [Mass/Vol] 9.1 mg/dL Normal 8.5-10.5 [facility] Comment on above: Performed By: #### 1 23105, 119429, 352726, 937755 #### [facility] [address] [place] [address] 55152 Behavioral Therapy Coordinator: Floyd Ann MD Chloride [Moles/Vol] 103 mmol/L Normal 100-109 [facility] Comment on above: Performed By: #### 1 08437, 660096, 671843, 559276 #### [facility] [address] [place] [address] 69600 Behavioral Therapy Coordinator: Floyd Ann MD CO2, venous 28.8 mmol/L Normal 21.0-32.0 [facility] Comment on above: Performed By: #### 1 24616, 456594, 469177, 549586 #### [facility] [address] [place] [address] 63352 Behavioral Therapy Coordinator: Floyd Ann MD Creatinine [Mass/Vol] 0.6 mg/dL Normal 0.6-1.0 [facility] Comment on above: Performed By: #### 1 00929, 747033, 657288, 811002 #### [facility] [address] [place] [address] 13358 Behavioral Therapy Coordinator: Floyd Ann MD Glucose [Mass/Vol] 80 mg/dL Normal 72-100 [facility] Comment on above: Result Comment: Radha puncture should occur prior to sulfasalazine administration due to the potential for falsely depressed results. Venipuncture should occur prior to sulfapyridine administration due to the potential falsely elevated results. Baseline assay values before administration of sulfasalazine and sulfapyridine therapy would not be affected. Performed By: #### 1 19656, 789051, 423044, 789564 #### [facility] [address] [place] [address] 90462 Behavioral Therapy Coordinator: Floyd Ann MD Potassium [Moles/Vol] 4.5 mmol/L Normal 3.5-5.1 [facility] Comment on above: Performed By: #### 1 09856, 247476, 749491, 428259 #### [facility] [address] [place] [address] 76548 Behavioral Therapy Coordinator: Floyd Ann MD Sodium [Moles/Vol] 139 mmol/L Normal 135-145 [facility] Comment on above: Performed By: #### 1 44806, 920741, 978374, 173099 #### [facility] [address] [place] [address] 31936 Behavioral Therapy Coordinator: Floyd Ann MD Urea nitrogen [Mass/Vol] 22 mg/dL High 10-20 [facility] Comment on above: Performed By: #### 1 93970, 675385, 737290, 398931 #### [facility] [address] [place] [address] 78687 Behavioral Therapy Coordinator: Floyd Ann MD CBCNDon 08-05-2019 Erythrocyte distribution width (RBC) [Ratio] 14.0 % Normal 11.5-14.5 [facility] Comment on above: Performed By: #### 1 90903, 778359, 759695, 396390 #### [facility] [address] [place] [address] 15614 Behavioral Therapy Coordinator: Floyd Ann MD Hematocrit (Bld) [Volume fraction] 41.8 % Normal 36.0-46.0 [facility] Comment on above: Performed By: #### 1 93475, 607464, 861942, 462212 #### [facility] [address] [place], [place] [address] Behavioral Therapy Coordinator: Floyd Ann MD Hemoglobin (Bld) [Mass/Vol] 13.8 g/dL Normal 12.0-16.0 [facility] Comment on above: Performed By: #### 1 67540, 827259, 308452, 050931 #### [facility] [address] [place] [address] Behavioral Therapy Coordinator: Floyd Ann MD MCH (RBC) [Entitic mass] 29.4 pg Normal 27.0-34.0 [facility] Comment on above: Performed By: #### 1 39316, 094455, 227793, 808043 #### [facility] [address] [place], [place] [address] Behavioral Therapy Coordinator: Floyd Ann MD MCHC (RBC) [Mass/Vol] 33.0 g/dL Normal 32.0-37.0 [facility] Comment on above: Performed By: #### 1 46581, 658270, 163453, 018662 #### [facility] [address] [place], [place] [address] Behavioral Therapy Coordinator: Floyd Ann MD MCV (RBC) [Entitic vol] 89.1 fL Normal 80.0-100.0 [facility] Comment on above: Performed By: #### 1 91470, 326364, 613072, 435941 #### [facility] [address] [place] [address] 29174 Behavioral Therapy Coordinator: Floyd Ann MD Platelet mean volume (Bld) [Entitic vol] 9.0 fL Normal 7.4-10.4 [facility] Comment on above: Performed By: #### 1 03553, 782959, 566834, 627868 #### [facility] [address] [place] [address] 19434 Behavioral Therapy Coordinator: Floyd Ann MD Platelets (Bld) [#/Vol] 261 x1000 Normal 150-450 [facility] Comment on above: Performed By: #### 1 81161, 361122, 767560, 478555 #### [facility] [address] [place] [address] 66965 Behavioral Therapy Coordinator: Floyd Ann MD RBC (Bld) [#/Vol] 4.70 x10 Normal 4.20-5.40 [facility] Comment on above: Result Comment: Note : RBC morphology is normal unless otherwise stated. Evaluation performed only if differential is requested. Performed By: #### 1 74392, 449982, 048315, 361553 #### [facility] [address] [place] [address] 32722 Behavioral Therapy Coordinator: Floyd Ann MD WBC (Bld) [#/Vol] 5.5 x10 Normal 4.5-11.0 [facility] Comment on above: Performed By: #### 1 40015, 704779, 229169, 410969 #### [facility] [address] [place] [address] 35933 Behavioral Therapy Coordinator: Floyd Ann MD WBC (Bld) [#/Vol] 5.5 10*3/uL Normal [facility] Comment on above: Performed By: #### 1 70806, 990030, 544668, 883835 #### [facility] [address] [place] [address] 79057 Behavioral Therapy Coordinator: Floyd Ann MD DATon 08-05-2019 LEILA Polyspecific Interp Negative Normal [facility] Comment on above: Performed By: #### 1 86492, 681533, 648865, 120762 #### [facility] [address] [place] [address], [place] [id number] Behavioral Therapy Coordinator: Floyd Ann MD VS LEILA Poly 0 Normal [facility] Comment on above: Performed By: #### 1 81763, 127854, 254158, 338877 #### [facility] [address] [place] [address] Behavioral Therapy Coordinator: Floyd Ann MD History and Physicalon 08-04 History and Physical Patient: MILDRED BRAN Age: 73 years Sex: Female : 1945 Associated Diagnoses: None Author: BRANDON ANGEL DNP Basic Information Source of history: Self. Chief Complaint Left knee pain History of Present Illness This is a pleasant 73-year-old female with chronic history of degenerative joint disease of knee. She is status post right total knee replacement with Dr. Irena Gee on April 21, 2019. Patient reports failed conservative care plan for degenerative joint disease in her left knee. She describes her pain as a constant ache that is located everywhere in the left knee. The pain is exacerbated when arising from prolonged seated position. Other associated symptoms include crepitus and instability of the left knee. She denies the use of a cane or walker for gait stability. Denies any falls. Denies any open wounds or skin irritations on her left knee. The pain in her left knee affects her activities of daily been. Dr. Irena Gee is recommending a left total knee replacement. Patient is agreeable. The patient denies any anesthesia problems or family history of anesthesia problems. Review of Systems Constitutional: The patient sleeps well, No fever, No chills, No fatigue. Eye: Impaired vision, Glasses, No recent visual problem, No blurring, No double vision, No visual disturbances. Ear/Nose/Mouth/Throa t: No decreased hearing, No ear pain, No nasal congestion, No sore throat. Respiratory: Sleep apnea, No shortness of breath, No cough, No wheezing. Device use: BiPAP. Cardiovascular: No chest pain, No palpitations, No peripheral edema, No syncope. Gastrointestinal: No nausea, No vomiting, No diarrhea, No constipation, No heartburn. Genitourinary: No dysuria, No hematuria. Hematology/Lymphatic s: No bruising tendency, No bleeding tendency, No swollen lymph glands. Endocrine: No excessive thirst, No polyuria. Immunologic: Not immunocompromised, No recurrent fevers, No recurrent infections. Musculoskeletal: Joint pain, Decreased range of motion, No back pain, No neck pain, No muscle pain, No trauma. Integumentary: No rash, No breakdown, No skin lesion. Neurologic: Alert and oriented X4, No abnormal balance, No numbness, No tingling, No headache. Psychiatric: Depression, No anxiety, Not suicidal. Histories Past Medical History: History of kidney stones History of anemia History of sleep apnea History of fatty liver History of osteoarthritis Procedure history: RIGHT TOTAL KNEE REPLACEMENT on 04/21/2019 at 73 Years. Gastric bypass. Herniorrhaphy. Rotator cuff repair. Hysterectomy. Appendectomy. Uvulopalatopharyngop lasty. Social History Social History Alcohol Current, Beer, 1-2 times per year Home/Environment Lives with Mother. Living situation: Home/Independent. Home equipment: None, Walker/Cane. Home monitoring equipment: None. Special/Community resources: None. Mobility prior to admit: Independent. Home Barriers: None. Will patient require additional/new services upon discharge? No. Substance Abuse Denies Substance Abuse (04/06/2019) Tobacco Former smoker, quit more than 30 days ago Tobacco Use:. Cigarettes, 3 year(s). Comment: quit 21 yrs ago (04/06/2019 09:02 - Stfeany Hearn RN) Psychosocial History No active psychosocial history has been recorded. Physical Examination VS/Measurements Vital Signs (last 24 hrs) Last Charted Temp Oral 37 degC (AUGUST 04:) Resp Rate 16 br/min (AUGUST 04:) SBP 102 mmHg (AUGUST 04:) DBP L 53mmHg (AUGUST 04:) Weight 98.3 kg (AUGUST 04:) Height 152.40 cm (AUGUST 04:) BMI 42.32 (AUGUST 04:) General: Alert and oriented, No acute distress. Eye: Pupils are equal, round and reactive to light, Extraocular movements are intact, Normal conjunctiva, Vision unchanged. HENT: Normocephalic, Tympanic membranes are clear, Normal hearing. Neck: Supple, Non-tender, No carotid bruit, No lymphadenopathy, No thyromegaly. Respiratory: Lungs are clear to auscultation, Respirations are non-labored, Breath sounds are equal, Symmetrical chest wall expansion, No chest wall tenderness. Cardiovascular: Normal rate, Regular rhythm, No murmur, No gallop, Good pulses equal in all extremities, Normal peripheral perfusion, No edema. Gastrointestinal: Soft, Non-tender, Non-distended, Normal bowel sounds. Genitourinary: No costovertebral angle tenderness. Lymphatics: No lymphadenopathy neck or axilla.. Musculoskeletal: No swelling, No deformity. Lower extremity exam: Knee ( Left, Pain ). Integumentary: Warm, Dry, Intact, No rash. Neurologic: Alert, Oriented, Normal sensory, Normal motor function, No focal deficits. Cognition and Speech: Oriented, Speech clear and coherent. Psychiatric: Cooperative, Appropriate mood & affect. Health Status Allergies (3) Active Reaction Adhesive tape allergy rash albuterol excessive coughing Benzoin blister . Current medications: Home Meds (ST) Home Medications (14) Active amitriptyline 10 mg oral tablet 40 mg = 4 tabs, ORAL, QHS calcium citrate 950 mg (200 mg elemental calcium) oral tablet 1,900 mg = 2 tabs, ORAL, DAILY CeleBREX 200 mg oral capsule 200 mg = 1 caps, ORAL, BID Cogniforce Tablets 2 tabs, ORAL, DAILY ferrous sulfate 325 mg (65 mg elemental iron) oral tablet 325 mg = 1 tabs, ORAL, DAILY Flax Seed Oil oral capsule 1 caps, ORAL, DAILY glucosamine with potassium chloride tablet 1 tabs, ORAL, DAILY hydroCHLOROthiazide 12.5 mg oral tablet 12.5 mg = 1 tabs, ORAL, DAILY magnesium oxide 400 mg (241.3 mg elemental magnesium) oral tablet 400 mg = 1 tabs, ORAL, DAILY AD oral tablet 1 tabs, ORAL, DAILY Provigil 200 mg oral tablet 100 mg = 0.5 tabs, ORAL, DAILY PROzac 40 mg oral capsule 40 mg = 1 caps, ORAL, DAILY Synthroid 75 mcg (0.075 mg) oral tablet 75 mcg = 1 tabs, ORAL, DAILY Vitamin D3 5000 intl units (125 mcg) oral tablet 10,000 intl_unit = 2 tabs, ORAL, DAILY Problem list: All Problems Anemia / SNOMED CT 862645710 / Confirmed BMI 40.0-44.9, adult / SNOMED CT 9745938640 / Confirmed Depression / SNOMED CT 375587988 / Confirmed Preop examination / SNOMED CT 524455389 / Confirmed Bilateral primary osteoarthritis of knee / SNOMED CT 577076898 / Confirmed Sleep apnea / SNOMED CT 285965761 / Confirmed Fatty liver / SNOMED CT 822403967 / Confirmed Resolved: Low dose hydromorphone (Dilaudid) IV Injection / Patient Care Problem added due to Post Op Obstructive Sleep Apnea order following general anesthesia Problem resolved secondary to communication order staus change. Resolved: No LEVEL 3 CASING COOKER PUMP unless Critical Care / Patient Care Problem added due to Post Op Obstructive Sleep Apnea order following general anesthesia inactivate due to discharge Canceled: Bleeding disorder / SNOMED CT 629080263 Problem added automatically by system based on initiation of suggested paln of care Risk for Bleeding. Canceled: Hypertension / SNOMED CT 6999866203 Review / Management Results review: General Labs () CBCWD WBC: 5.5 x10 RBC: 4.7 x10 HGB: 13.8 g/dL (08/05/19) HCT: 41.8 % (08/05/19) MCV: 89.1 fL (08/05/19) MCH: 29.4 pg (08/05/19) MCHC: 33 g/dL (08/05/19) RDW: 14 (08/05/19) Platelet: 261 x1000 (08/05/19) MPV: 9 fL (08/05/19) CMP BUN: 22 mg/dL High (08/05/19) Na: 139 mmol/L (08/05/19) K: 4.5 mmol/L (08/05/19) Chloride: 103 mmol/L (08/05/19) CO2, venous: 28.8 mmol/L (08/05/19) Glucose: 80 mg/dL (08/05/19) Creatinine: 0.6 mg/dL (08/05/19) Calcium: 9.1 mg/dL (08/05/19) Gen Labs Protime Patient: 10.8 seconds (08/05/19) INR: 0.9 (08/05/19) . Laboratory Results Today's Lab Results : Laboratory 08/05/2019 8:35 EDT Color, U Awilda Appearance, U Cloudy Specific [place]man, U 1.026 NORMAL pH, U 5.0 NORMAL Protein, U Negative Glucose Qual, U Negative Ketones, U Negative Bilirubin, U Negative Blood, U Negative Urobilinogen Qual, U 2.0 mg/dl Nitrite, U Negative Leukocyte Esterase, U Negative 08/05/2019 7:53 EDT ABORH Interpretation B Positive ABSC Final Interp Positive LEILA Polyspecific Interp Negative ECG interpretation: EKG from April 06, 2019 reads: Normal sinus rhythm. Ventricular rate 78 bpm. Low voltage QRS. Borderline EKG.. Impression and Plan Impression 1. Bilateral primary osteoarthritis of knee 2. Preop examination 3. BMI 42.32 Plan 1. Patient is scheduled for left total knee replacement with Dr. Irena Gee on August 23, 2019. 2. Ancef 2 g IV piggyback ordered, once for preop. This report was completed using voice recognition software. Verbal misinterpretations may occur Electronically Co-Signed by: BRANDON ANGEL DNP on 08/05/2019 08:57 EDT Electronically Co-Signed by: BRANDON ANGEL DNP on 08/05/2019 12:57 EDT Normal [facility] PT INRon 08-05-2019 INR Coag (PPP) [Relative time] 0.9 {INR} Normal [facility] Comment on above: Result Comment: Norm al reference range for INR on patients not on anticoagulant therapy: 0.9-1.1. General therapeutic range for patients on anticoagulant therapy: 2.0-3.5. Performed By: #### 1 52433, 334848, 348247, 449175 #### [facility] [address] [place] [address] Behavioral Therapy Coordinator: Floyd Ann MD Protime Patient 10.8 seconds Normal 10.1-13.3 [facility] Comment on above: Performed By: #### 1 47123, 856346, 299725, 868286 #### [facility] [address] [place] [address] Behavioral Therapy Coordinator: Floyd Ann MD Preadmission Testing Juan ann Noteon 08-05-2019 Preadmission Testing Progress Note PREADMISSION TESTING (PAT) INSTRUCTION SHEET [ x ] Bring your Surgery Guide with you on day of surgery [ x ] Read and complete your Discharge Planning Checklist [ x ] Take only highlighted medications on morning of surgery [ x ] Stop all vitamins and herbal supplements 7 days prior to surgery (unless otherwise instructed) [ ] Call Surgeon when to stop taking the following: [ ] Blood thinner [ ] Anti-inflammatory/as pirin [ ] See instruction sheet to complete CHG Prep: [ ] pm [ ] am [ ] You will be asked to give urine specimen on arrival to surgery [ ] Call Surgeon to see if bowl prep is required-follow Surgeon's instruction [ ] Return to PAT department for blood test on: [ ] [ ] Total Joint Class: Date: [ ] Time: [ ] [ ] Physical Therapy: Date: [ ] Time: [ ] [x ] Bring on day of surgery: [ ] Brace [ ] Incentive Spirometer [ ] Crutches (leave in car) [ ] Inhaler [ ] C-pap machine [ ] Oxygen [x ] Green blood band (in Surgery Guide) [ ] Other: [x ] Additional instructions: COVID TEST 08/19 Normal [facility] UAon 08-05-2019 U MICRO Not Indicated Normal [facility] Comment on above: Performed By: #### 1 95526, 360670, 318940, 774845 #### [facility] [address] [place] [address] 77335 Behavioral Therapy Coordinator: Floyd Ann MD Appearance, U Cloudy Normal [facility] Comment on above: Performed By: #### 1 11358, 450860, 380167, 140065 #### [facility] [address] [place] [address] Behavioral Therapy Coordinator: Floyd Ann MD Bilirubin, U Negative Normal Negative [facility] Comment on above: Performed By: #### 1 36768, 375514, 646052, 176091 #### [facility] [address] [place] [address] Behavioral Therapy Coordinator: Floyd Ann MD Blood, U Negative Normal Negative [facility] Comment on above: Performed By: #### 1 39124, 054017, 011297, 327850 #### [facility] [address] [place] [address] 76706 Behavioral Therapy Coordinator: Floyd Ann MD Color, U Awilda Normal [facility] Comment on above: Performed By: #### 1 11398, 825375, 396755, 608372 #### [facility] [address] [place] [address] 13211 Behavioral Therapy Coordinator: Floyd Ann MD Glucose Qual, U Negative Normal Negative [facility] Comment on above: Performed By: #### 1 36319, 248749, 543927, 539130 #### [facility] [address] [place] [address] 01710 Behavioral Therapy Coordinator: Floyd Ann MD Ketones, U Negative Normal Negative [facility] Comment on above: Performed By: #### 1 79241, 062188, 218005, 702370 #### [facility] [address] [place] [address] 94848 Behavioral Therapy Coordinator: Floyd Ann MD Leukocyte Esterase, U Negative Normal Negative [facility] Comment on above: Performed By: #### 1 83597, 092078, 534747, 479896 #### [facility] [address] [place] [address] 72643 Behavioral Therapy Coordinator: Floyd Ann MD Nitrite, U Negative Normal Negative [facility] Comment on above: Performed By: #### 1 04208, 028395, 824340, 821384 #### [facility] [address] [place] [address] 49683 Behavioral Therapy Coordinator: Floyd Ann MD pH, U 5.0 Normal 4.5-8.0 [facility] Comment on above: Performed By: #### 1 63398, 143754, 139763, 991756 #### [facility] [address] [place] [address] Behavioral Therapy Coordinator: Floyd Ann MD Protein, U Negative Normal Negative [facility] Comment on above: Performed By: #### 1 29544, 620847, 144351, 637854 #### [facility] [address] [place] [address] Behavioral Therapy Coordinator: Floyd Ann MD Specific [place], U 1.026 Normal 1.001-1.035 [facility] Comment on above: Performed By: #### 1 53809, 477660, 547119, 729896 #### [facility] [address] [place], [place] [address] Behavioral Therapy Coordinator: Floyd Ann MD Urobilinogen Qual, U 2.0 mg/dl Abnormal <2.0 mg/dl [facility] Comment on above: Result Comment: EU/d l and mg/dl are equivalent units. Performed By: #### 1 38292, 507926, 225372, 522754 #### [facility] [address] [place] [address]117 Behavioral Therapy Coordinator: Floyd Ann MD OR Nursing Record - Main Alessia n 05-24-2019 OR Nursing Record - Main OR OR Nursing Record - Main OR Summary Primary Physician: IRENA GEE MD Finalized Date/Time: 05/24/19 13:53:17 Pt. Name: MILDRED BRAN/Sex: 1945 Female Med Rec #: [id number] Physician: IRENA GEE MD Financial #: [id number] Pt. Type: I Room/Bed: 06/01 Admit/Disch: 04/21/19 08:16:56 - 04/23/19 16:38:00 Institution: Transport to OR - Main OR Entry 1 By Joaquina Cunningham RN, Date/Time Leaving 04/21/19 10:21:00 Jatinder Rao CSA Siderails Up? Yes Last Modified By: Joaquina Cunningham RN 04/21/19 11:07:52 Case Times - Main OR Entry 1 Patient In Room Time 04/21/19 10:22:00 Out Room Time 04/21/19 12:05:00 Anesthesia Facility Times Induction Time 04/21/19 10:23:00 Stop Time 04/21/19 12:04:00 [place] Protocol Yes Completed Surgery Start Time 04/21/19 11:01:00 Stop Time 04/21/19 12:01:00 Last Modified By: Joaquina Cunningham RN 04/21/19 12:06:02 Surgical Procedures - Main OR Entry 1 Procedure Total Knee Arthroplasty Modifiers Right Surgeon Procedure RIGHT TOTAL KNEE Primary Procedure Yes Description REPLACEMENT Primary Surgeon MAGALI RODRIGUEZ, IRENA Start 04/21/19 11:01:00 Stop 04/21/19 12:01:00 Anesthesia Type General with Lower Extremity Block Surgical Service SN - Orthopedics Last Modified By: Joaquina Cunningham RN 04/21/19 12:01:16 Case Attendance - Main OR Entry 1 Entry 2 Entry 3 Case Attendee MAGALI RODRIGUEZ, IRENA MILLER MD, CLEMENTINE DEJESUS CONDUIT CLEANER, STUART Role Performed Surgeon Primary Anesthesiologist Primary Anesthesia Asst/CONDUIT CLEANER Time In 04/21/19 10:22:00 04/21/19 10:22:00 04/21/19 10:22:00 Time Out 04/21/19 12:05:00 04/21/19 12:05:00 04/21/19 12:05:00 Procedure Total Knee Total Knee Total Knee Arthroplasty(Right) Arthroplasty(Right) Arthroplasty(Right) Last Modified By: Joaquina Cunningham RN, RN, Joaquina Vasquez RN 04/21/19 12:06:06 04/21/19 12:06:06 04/21/19 12:06:06 Entry 4 Entry 5 Entry 6 Case Attendee Octavio ROTH, Joaquina Rao CSA, Wendy Belcher Role Performed Senior Software Test Engineer Primary Game Artist Scrub Primary Time In 04/21/19 10:22:00 04/21/19 10:22:00 04/21/19 10:22:00 Time Out 04/21/19 12:05:00 04/21/19 12:05:00 04/21/19 12:05:00 Procedure Total Knee Total Knee Total Knee Arthroplasty(Right) Arthroplasty(Right) Arthroplasty(Right) Last Modified By: Joaquina Cunningham RN, RN, Jacklyn Rambert RN, Jacklyn 04/21/19 12:06:06 04/21/19 12:06:06 04/21/19 12:06:06 Entry 7 Entry 8 Case Attendee Floresita Oliveira SA, Nnamdi White Performed Power Transformer Assembler Game Artist Second Time In 04/21/19 10:22:00 04/21/19 10:47:00 Time Out 04/21/19 10:34:00 04/21/19 12:05:00 Procedure Total Knee Total Knee Arthroplasty(Right) Arthroplasty(Right) Last Modified By: Joaquina Cunningham RN, RN, Jacklyn 04/21/19 12:06:06 04/21/19 12:06:06 General Comments: DEBORAH CASIANO DEPUY REP General Case Data - Main OR Entry 1 Case Information OR OR 01 Schedule Type Scheduled Case Level Level 6 Wound Class Clean Specialty SN - Orthopedics ASA Class 2 Blood Band Number [id number] Procedure History Yes Documented Diagnosis Preop Diagnosis BILATERAL PRIMARY Postop Diagnosis BILATERAL PRIMARY OSTEOARTHRITIS OF KNEE OSTEOARTHRITIS OF KNEE Last Modified By: Joaquina Cunningham RN 04/21/19 11:13:06 Delays - Main OR Entry 1 Delay Reason No Delay Last Modified By: Joaquina Cunningham RN 04/21/19 11:12:47 Patient Positioning - Main OR Entry 1 Procedure Total Knee Body Position Supine Arthroplasty(Right) Left Arm Position Extended on padded arm Right Arm Position Extended on padded arm board board Left Leg Position Extended Right Leg Position Extended Feet Uncrossed? Yes Press Points Checked Yes By Jatinder Rao CSA, Positioning Devices Sandbag, Padded HANCHOSKY CON[employer] CLE[employer]ER, STUART, Armboard, Pillow under Joaquina Cunningham RN Head Last Modified By: Joaquina Cunningham RN 04/21/19 11:11:08 Skin Prep - Main OR Entry 1 Procedure Total Knee Prep Area RIGHT KNEE/LEG Arthroplasty(Right) Prep Agents Duraprep By Jatinder Rao CSA Hair Removal Last Modified By: Joaquina Cunningham RN 04/21/19 10:40:17 Counts Verification - Main OR Entry 1 Count Type Initial Count Participants Joaquina Cunningham RNEnedelia Celeste Count Status Correct Items Counted Sponges, Sharps Surgeon Notified n/a Closing Count Correct Last Modified By: Joaquina Cunningham RN 04/21/19 10:40:55 Counts Action Taken - Main OR NOT APPLICABLE Entry 1 Surgeon Notified No Count Incorrect Last Modified By: Cautery - Main OR Entry 1 ESU Type [facility] Unit Number 745 Cut Setting 45 Grounding Pad Yes Needed? Grounding Pad Site Left Lower Abdomen Grounding Pad Site Yes Dry /Intact Pre-Op? Grounding Pad Site Yes Dry / Intact PostOp? Last Modified By: Joaquina Cunningham RN 04/21/19 12:01:23 Catheters, Drains, Tubes - Main OR Entry 1 Device Type Hemovac Inserted By IRENA GEE MD Last Modified By: Joaquina Cunningham RN 04/21/19 11:08:19 Medication Administration - Main OR Entry 1 Entry 2 Time Administered Medication Other, See Comments Other, See Comments Route of Administration Dose Volume 40 mL 50 mL By IRENA GEE MD, MD, MARK Last Modified By: Joaquina Cunningham RN, RN, Jacklyn 04/21/19 11:08:54 04/21/19 11:08:54 General Comments: ORTHO COCKTAIL TRANEXAMIC ACID 3 GM Cultures & Specimens - Main OR Entry 1 Specimens Taken Routine Body Site RIGHT KNEE BONE AND TISSUE Last Modified By: Joaquina Cunningham RN 04/21/19 11:09:28 Skin Assessment - Main OR Entry 1 Skin Integrity at Intact Skin Abnormality at No Incision Site: Incision Site: General/Overall INTACT Skin Integrity: Last Modified By: Joaquina Cunningham RN 04/21/19 11:09:16 Surgical Irrigation - Main OR Entry 1 Irrigant Saline Additive Bacitracin Dose 05281 units Last Modified By: Joaquina Cunningham RN 04/21/19 11:09:17 Tourniquet - Main OR Entry 1 Unit ID 1 Setting 300 mmHg Placement Right Upper Thigh Applied By Jatinder Rao CSA Tourniquet Times Inflated 1059 Deflated 1140 Last Modified By: Joaquina Cunningham RN 04/21/19 11:43:08 Patient Care Devices - Main OR Entry 1 Equipment Type Forced Air Warming Unit Unit Number 15 Equipment Setting 43 C UPPER Last Modified By: Joaquina Cunningham RN 04/21/19 11:09:40 Implants/Tissue Products - Main OR Entry 1 Entry 2 Entry 3 Procedure Total Knee Total Knee Total Knee Arthroplasty(Right) Arthroplasty(Right) Arthroplasty(Right) Implant Site RIGHT KNEE RIGHT KNEE RIGHT KNEE Tissue Product? No No No Implant No No No removed/wasted? Implant Description CEMENT BONE DEPUY CMW KNEE FEM COMP SIGMA PS KNEE DEPUY TIBIAL TRAY 3312-040 SZ 2.5R DEPUY [id number] 1294-31-120 Catalog Number [id number] Size 2.5 RIGHT 2 Expiration Date 07/06/21 02/05/29 12/07/23 Lot Number [id number] Office Helper J AND J DEPUY ORTHOPEDIC J AND J DEPUY ORTHOPEDIC J AND J DEPUY ORTHOPEDIC Quantity 2 1 1 Serial Number Prepared By MAGALI RODRIGUEZ, IRENA GEE MD, IRENA GEE MD, IRENA Jones Prepared Prep Solution Donor Number Explant Reason Unique Device [id number] Identifier Human Readable VADIM {[id number] {[id number] Machine Readable VADIM [id number] Manufactured Date Office Helper Model Number Materials MR Classification Unknown Unknown Unknown Biological Source Implant/Explant Implanted By Last Modified By: Lisette Gonzalez RN, Joaquina Vasquez RN 05/24/19 13:53:12 04/21/19 11:42:20 04/21/19 11:42:20 Entry 4 Entry 5 Procedure Total Knee Total Knee Arthroplasty(Right) Arthroplasty(Right) Implant Site RIGHT KNEE RIGHT KNEE Tissue Product? No No Implant No No removed/wasted? Implant Description KNEE DEPUY SIGMA KNEE DEPUY TIBIAL PATELLA 96-0101 INSERT 96-2121 Catalog Number [id number] Size 35 MM 10 MM Expiration Date 12/07/23 06/07/23 Lot Number [id number] Office Helper J AND J DEPUY ORTHOPEDIC J AND J DEPUY ORTHOPEDIC Quantity 1 1 Serial Number Prepared By MAGALI RODRIGUEZ, IRENA GEE MD, IRENA Jones Prepared Prep Solution Donor Number Explant Reason Unique Device [id number] Identifier Human Readable VADIM {[id number] {[id number] Machine Readable VADIM [id number] Manufactured Date Office Helper Model Number Materials MR Classification Unknown Unknown Biological Source Implant/Explant Implanted By Last Modified By: Joaquina Cunningham RN, RN, Jacklyn 04/21/19 11:42:20 04/21/19 11:43:30 Dressing/Packing - Main OR Entry 1 Wound Closure Non-Primary closure Type Dressing Items Bacitracin Ointment, Site and Details RIGHT KNEE Adaptic, 4x4, Drain Sponge, ABD pad, Webril, Marlon Wrap Cast/Splint DuraCold Last Modified By: Joaquina Cunningham RN 04/21/19 11:09:08 Departure from OR - Main OR Entry 1 Present on Depart Oxygen Post-op Destination PACU Report Given To Jose L ROTH [place] Last Modified By: Joaquina Cunningham RN 04/21/19 12:09:54 Case Comments Finalized By: Lisette Gonzalez Document Signatures Signed By: Joaquina Cunningham RN 04/21/19 12:09 Lisette Gonzalez 05/24/19 13:53 Normal [facility] SURGICAL PATH REPORTon 04-25 SURGICAL PATH REPORT [facility] Department of Pathology [address] [place] [id number] Name: MILDRED BRAN : 1945 [facility] [id number] Number: Gender: Female Location: 5E; E506; 01 Admit 73 years Attending IRENA GEE MD Age: Provider: Ordering IRENA GEE MD Provider: Consulting: Surgical Pathology Report ACCESSION: COLLECTED DATE/TIME: RECEIVED DATE/TIME: PATHOLOGIST: [id number] 04/21/2019 11:14 EST 04/21/2019 13:04 SHIMA BRANTLEY MD Final Diagnosis RIGHT KNEE BONE AND TISSUE, TOTAL KNEE REPLACEMENT: - CONSISTENT WITH DEGENERATIVE OSTEOARTHRITIS. SHIMA EDDY PATHOLOGIST (Electronic Signature) Date Verified 04/25/2019 TS Clinical Data PREOP DIAGNOSIS: BILATERAL PRIMARY OSTEOARTHRITIS OF KNEE POSTOP DIAGNOSIS: SAME PROCEDURE: RIGHT TOTAL KNEE REPLACEMENT SPECIMEN: RIGHT KNEE BONE AND TISSUE Gross Description Labeled right knee bone and tissue. Received in formalin are multiple fragments of bone and soft tissue. The osseous segments measure 13.5 x 7.5 x 3.5 cm with the largest segment measuring 6.6 x 4.5 x 1.2 cm. The soft tissue segments have an aggregate dimension of 7.5 x 6.0 x 3.0 cm. The bone segments include recognizable portions of the tibial plateau and the femoral condyle. The articular surface is markedly roughened and shows areas of cartilaginous loss and eburnation of the bony surface. The soft tissue is gold pink to yellow and includes fragments of meniscus. Director Of Vendor Management soft and decalcified tissue sections are submitted in two cassettes. /wayne 04/21/2019 Codes CPT CODE: [id number] + [id number] Print Date04/25/2019 12:52 EST Number: Time: Normal [facility] Comment on above: Performed By: #### 1 57480, 783141, 846400, 540336 #### [facility] [address] [place], [place] [id number] Behavioral Therapy Coordinator: Floyd Ann MD CBCNDon 04-23-2019 Erythrocyte distribution width (RBC) [Ratio] 13.5 % Normal 11.5-14.5 [facility] Comment on above: Performed By: #### 1 66730, 572013, 926830, 974024 #### [facility] [address] [place] [address] Behavioral Therapy Coordinator: Floyd Ann MD Hematocrit (Bld) [Volume fraction] 36.0 % Normal 36.0-46.0 [facility] Comment on above: Performed By: #### 1 98391, 208729, 705955, 241172 #### [facility] [address] [place] [address] Behavioral Therapy Coordinator: Floyd Ann MD Hemoglobin (Bld) [Mass/Vol] 12.0 g/dL Normal 12.0-16.0 [facility] Comment on above: Performed By: #### 1 03695, 602321, 674424, 304363 #### [facility] [address] [place] [address] Behavioral Therapy Coordinator: Floyd Ann MD MCH (RBC) [Entitic mass] 30.4 pg Normal 27.0-34.0 [facility] Comment on above: Performed By: #### 1 59581, 957195, 051072, 440848 #### [facility] [address] [place] [address] Behavioral Therapy Coordinator: Floyd Ann MD MCHC (RBC) [Mass/Vol] 33.2 g/dL Normal 32.0-37.0 [facility] Comment on above: Performed By: #### 1 60172, 050464, 793925, 348603 #### [facility] [address] [place] [address] Behavioral Therapy Coordinator: Floyd Ann MD MCV (RBC) [Entitic vol] 91.6 fL Normal 80.0-100.0 [facility] Comment on above: Performed By: #### 1 52052, 927688, 468954, 822384 #### [facility] [address] [place] [address] Behavioral Therapy Coordinator: Floyd Ann MD Platelet mean volume (Bld) [Entitic vol] 8.5 fL Normal 7.4-10.4 [facility] Comment on above: Performed By: #### 1 08767, 946699, 673709, 568232 #### [facility] [address] [place] [address] Behavioral Therapy Coordinator: Floyd Ann MD Platelets (Bld) [#/Vol] 222 x1000 Normal 150-450 [facility] Comment on above: Performed By: #### 1 88311, 685237, 977526, 984837 #### [facility] [address] [place] [address] Behavioral Therapy Coordinator: Floyd Ann MD RBC (Bld) [#/Vol] 3.93 x10 Low 4.20-5.40 [facility] Comment on above: Result Comment: Note : RBC morphology is normal unless otherwise stated. Evaluation performed only if differential is requested. Performed By: #### 1 55714, 715840, 580499, 934176 #### [facility] [address] [place] [address] Behavioral Therapy Coordinator: Floyd Ann MD WBC (Bld) [#/Vol] 7.7 10*3/uL Normal [facility] Comment on above: Performed By: #### 1 19972, 989255, 128599, 609544 #### [facility] [address] [place] [address] Behavioral Therapy Coordinator: Floyd Ann MD WBC (Bld) [#/Vol] 7.7 x10 Normal 4.5-11.0 [facility] Comment on above: Performed By: #### 1 74531, 377311, 000805, 901233 #### [facility] [address] [place] [address] Behavioral Therapy Coordinator: Floyd Ann MD Progress Note-Physicianon Progress Note-Physician Patient: MILDRED BRAN Age: 73 years Sex: Female : 1945 Associated Diagnoses: None Author: FABIOLA RODRIGUEZ, BERNARDO Subjective: Ms. Bran is a 73 year old lady who presented for elective right knee replacement. Her pain is a little better controlled today. Denies any nausea or vomiting. Objective: Vital Signs (last 24 hrs) Last Charted Temp Oral 36.7 degC (APR 23 07:18) Resp Rate 16 br/min (APR 23:18) SBP H 153mmHg (APR 23:18) DBP 82 mmHg (APR 23:18) General: alert, no acute distress, obese, lying in bed. Heart: regular rate and rhythm. No murmurs, rubs or gallops, normal S1 & S2. Lungs: clear to auscultation bilaterally, no wheezing or rhonchi. Abdomen: soft, nontender, normal bowel sounds. Extremities: no cyanosis clubbing or edema. Right knee dressing. Labs (Last four charted values) WBC 7.7 (APR 23) 8.4 (APR 22) 6.0 (APR 06) Hgb 12.0 (APR 23) L 11.3 (APR 22) 14.0 (APR 06) Hct 36.0 (APR 23) L 33.7 (APR 22) 41.4 (APR 06) Plt 222 (APR 23) 223 (APR 22) 231 (APR 06) Na 137 (APR 22) 140 (APR 06) K 3.8 (APR 22) 4.2 (APR 06) CO2 28.3 (APR 22) 30.2 (APR 06) Cl 106 (APR 22) 106 (APR 06) Cr 0.7 (APR 22) 0.7 (APR 06) BUN H 23 (APR 22) H 24 (APR 06) Glucose Random H 135 (APR 22) H 135 (APR 22) 83 (APR 06) Ca L 8.2 (APR 22) 9.5 (APR 06) INR .9 (APR 06) Assessment and Plan: Presence of right artificial knee joint: - PT/OT - Pain control. Acute posthemorrhagic anemia: expected blood loss with surgery. - Monitor. Elevated blood-pressure reading, without diagnosis of hypertension: blood pressure is a little higher today. She tells me she was started on HCTZ by her urologist for kidney stones. She denies any history of HTN. - Continue HCTZ. - Monitor blood pressure. Morbid (severe) obesity due to excess calories: - Weight loss encouraged. Hypothyroidism, unspecified: - Continue levothyroxine. DVT prophylaxis: will defer to orthopedic surgery. Normal [facility] BASICMETAon 04-22-2019 GFR AA >60 Normal [facility] Comment on above: Result Comment: Afri can French GFR Calc Medical judgement is necessary to interpret GFR. The calculated GFR may not accurately reflect renal status in patients >70 years, women, acutely ill hospitalized patients and patients with acute renal failure or known renal disease. The MDRD GFR formula is valid only for adults greater than 18 years of age. Note: Creatinine clearance (not GFR) should be used for drug dosing. Performed By: #### 1 98774, 445626, 444353, 859486 #### [facility] [address] [place] [address] Behavioral Therapy Coordinator: Floyd Ann MD GFR/1.73 sq M predicted among non-blacks MDRD (S/P/Bld) [Vol rate/Area] mL/min/{1.73_m2} Normal [facility] Comment on above: Result Comment: Non GFR Calc Medical judgement is necessary to interpret GFR. The calculated GFR may not accurately reflect renal status in patients >70 years, women, acutely ill hospitalized patients and patients with acute renal failure or known renal disease. The MDRD GFR formula is valid only for adults greater than 18 years of age. Note: Creatinine clearance (not GFR) should be used for drug dosing. Performed By: #### 1 63441, 476646, 980256, 130491 #### [facility] [address] [place] [address] Behavioral Therapy Coordinator: Floyd Ann MD Osmolality [Osmolality] 280 mOsm/kg Normal 275-295 [facility] Comment on above: Performed By: #### 1 11518, 695680, 854940, 519379 #### [facility] [address] [place] [address] Behavioral Therapy Coordinator: Floyd Ann MD Urea nitrogen/Creatinine [Mass ratio] 31.6 mg/mg Normal [facility] Comment on above: Performed By: #### 1 38834, 636815, 660133, 628934 #### [facility] [address] [place] [address] Behavioral Therapy Coordinator: Floyd Ann MD Calcium [Mass/Vol] 8.2 mg/dL Low 8.5-10.5 [facility] Comment on above: Performed By: #### 1 80615, 055887, 139655, 157729 #### [facility] [address] [place] [address] Behavioral Therapy Coordinator: Floyd Ann MD Chloride [Moles/Vol] 106 mmol/L Normal 100-109 [facility] Comment on above: Performed By: #### 1 62659, 779768, 680790, 961305 #### [facility] [address] [place], [place] [address] Behavioral Therapy Coordinator: Floyd Ann MD CO2, venous 28.3 mmol/L Normal 21.0-32.0 [facility] Comment on above: Performed By: #### 1 01914, 022610, 733441, 939558 #### [facility] [address] [place], [place] [address] Behavioral Therapy Coordinator: Floyd Ann MD Creatinine [Mass/Vol] 0.7 mg/dL Normal 0.6-1.0 [facility] Comment on above: Performed By: #### 1 16244, 891506, 808023, 189165 #### [facility] [address] [place], [place] [address] Behavioral Therapy Coordinator: Floyd Ann MD Glucose [Mass/Vol] 135 mg/dL High 72-100 [facility] Comment on above: Result Comment: Radha puncture should occur prior to sulfasalazine administration due to the potential for falsely depressed results. Venipuncture should occur prior to sulfapyridine administration due to the potential falsely elevated results. Baseline assay values before administration of sulfasalazine and sulfapyridine therapy would not be affected. Performed By: #### 1 72386, 249437, 289354, 077207 #### [facility] [address] [place] [address] Behavioral Therapy Coordinator: Floyd Ann MD Potassium [Moles/Vol] 3.8 mmol/L Normal 3.5-5.1 [facility] Comment on above: Performed By: #### 1 76276, 588034, 663281, 957614 #### [facility] [address] [place] [address] Behavioral Therapy Coordinator: Floyd Ann MD Sodium [Moles/Vol] 137 mmol/L Normal 135-145 [facility] Comment on above: Performed By: #### 1 56267, 214396, 403404, 834717 #### [facility] [address] [place] [address] Behavioral Therapy Coordinator: Floyd Ann MD Urea nitrogen [Mass/Vol] 23 mg/dL High 10-20 [facility] Comment on above: Performed By: #### 1 14569, 989868, 546592, 607979 #### [facility] [address] [place] [address] Behavioral Therapy Coordinator: Floyd Ann MD CBCNDon 04-22-2019 Erythrocyte distribution width (RBC) [Ratio] 13.0 % Normal 11.5-14.5 [facility] Comment on above: Performed By: #### 1 89796, 159093, 751000, 423113 #### [facility] [address] [place] [address] Behavioral Therapy Coordinator: Floyd Ann MD Hematocrit (Bld) [Volume fraction] 33.7 % Low 36.0-46.0 [facility] Comment on above: Performed By: #### 1 21313, 474626, 215745, 046555 #### [facility] [address] [place] [address] Behavioral Therapy Coordinator: Floyd Ann MD Hemoglobin (Bld) [Mass/Vol] 11.3 g/dL Low 12.0-16.0 [facility] Comment on above: Performed By: #### 1 36787, 594426, 305319, 327308 #### [facility] [address] [place] [address] Behavioral Therapy Coordinator: Floyd Ann MD MCH (RBC) [Entitic mass] 30.3 pg Normal 27.0-34.0 [facility] Comment on above: Performed By: #### 1 72505, 414352, 783633, 631449 #### [facility] [address] [place] [address] Behavioral Therapy Coordinator: Floyd Ann [facility] [Mass/Vol] 33.5 g/dL Normal 32.0-37.0 [facility] Comment on above: Performed By: #### 1 07266, 617483, 214490, 799006 #### [facility] [address] [place], [place] [address] Behavioral Therapy Coordinator: Floyd Ann MD MCV (RBC) [Entitic vol] 90.4 fL Normal 80.0-100.0 [facility] Comment on above: Performed By: #### 1 72629, 058506, 583451, 350851 #### [facility] [address] [place] [address] Behavioral Therapy Coordinator: Floyd Ann MD Platelet mean volume (Bld) [Entitic vol] 7.8 fL Normal 7.4-10.4 [facility] Comment on above: Performed By: #### 1 93034, 145343, 389241, 998755 #### [facility] [address] [place] [address] Behavioral Therapy Coordinator: Floyd Ann MD Platelets (Bld) [#/Vol] 223 x1000 Normal 150-450 [facility] Comment on above: Performed By: #### 1 16883, 380149, 458475, 077855 #### [facility] [address] [place] [address] Behavioral Therapy Coordinator: Floyd Ann MD RBC (Bld) [#/Vol] 3.73 x10 Low 4.20-5.40 [facility] Comment on above: Result Comment: Note : RBC morphology is normal unless otherwise stated. Evaluation performed only if differential is requested. Performed By: #### 1 92238, 064694, 551315, 020753 #### [facility] [address] [place] [address] Behavioral Therapy Coordinator: Floyd Ann MD WBC (Bld) [#/Vol] 8.4 x10 Normal 4.5-11.0 [facility] Comment on above: Performed By: #### 1 98636, 468175, 305466, 179440 #### [facility] [address] [place] [address] Behavioral Therapy Coordinator: Floyd Ann MD WBC (Bld) [#/Vol] 8.4 10*3/uL Normal [facility] Comment on above: Performed By: #### 1 26455, 461348, 566920, 972406 #### [facility] [address] [place] [address] Behavioral Therapy Coordinator: Floyd Ann MD Nursing Clinical Noteon 04-09 Nursing Clinical Note Assessed pt., see IView. Pt. resting in bed. Medicated for pain per order, see MAR. Will continue to monitor. Hourly rounding in place. Call hunt in reach. Bed in lowest position. Safety maintained. Normal [facility] Nursing Clinical Note Patient nerve block wore off this afternoon, requested additional pain relief options. Ultram and morphine IV given per MAR with moderate effect. Lavender essential oil also provided. Continue to monitor. Normal [facility] Progress Note-Physicianon Progress Note-Physician Patient: MILDRED BRAN Age: 73 years Sex: Female : 1945 Associated Diagnoses: None Author: PANIGUTTI MD, IRENA Subjective Patient comfortable. Objective EXAM: Patient is alert. Positive ability to flex and extend the fer and toes, warm, sensate foot, able to fire quad. Vital Signs (last 24 hrs) Last Charted Temp Oral 36.9 degC (APR 22 12:06) Resp Rate 16 br/min (APR 22 12:06) SBP 121 mmHg (APR 22 12:) DBP 81 mmHg (APR 22 12:06) Weight 99 kg (APR 21 15:) Height 152.40 cm (APR 21 15:) BMI 42.63 (APR 21 15:) Labs (Last four charted values) WBC 8.4 (APR 22) 6.0 (APR 06) Hgb L 11.3 (APR 22) 14.0 (APR 06) Hct L 33.7 (APR 22) 41.4 (APR 06) Plt 223 (APR 22) 231 (APR 06) Na 137 (APR 22) 140 (APR 06) K 3.8 (APR 22) 4.2 (APR 06) CO2 28.3 (APR 22) 30.2 (APR 06) Cl 106 (APR 22) 106 (APR 06) Cr 0.7 (APR 22) 0.7 (APR 06) BUN H 23 (APR 22) H 24 (APR 06) Glucose Random H 135 (APR 22) H 135 (APR 22) 83 (APR 06) Ca L 8.2 (APR 22) 9.5 (APR 06) INR .9 (APR 06) Impression and Plan . Patient stable. Dealing with some pain now block wearing off. Will likely stay 1 more day to meet rehabilitation goals and because of the fact that she lives far from the hospital. Normal [facility] Progress Note-Physician Patient: MILDRED BRAN Age: 73 years Sex: Female : 1945 Associated Diagnoses: None Author: FABIOLA RODRIGUEZ, BERNARDO Subjective: Ms. Bran is a 73 year old lady who presented for elective right knee replacement. She reports being in a lot of pain today. She denies any nausea or vomiting. Her knee is stiff. Objective: Vital Signs (last 24 hrs) Last Charted Temp Oral 36.9 degC (APR 22 12:06) Resp Rate 16 br/min (APR 22 12:06) SBP 121 mmHg (APR 22 12:) DBP 81 mmHg (APR 22 12:) Weight 99 kg (APR 21:) Height 152.40 cm (APR 21:) BMI 42.63 (APR 21:) General: alert, no acute distress, obese, sitting in a recliner. Heart: regular rate and rhythm. No murmurs, rubs or gallops, normal S1 & S2. Lungs: clear to auscultation bilaterally, no wheezing or rhonchi. Abdomen: soft, nontender, normal bowel sounds. Extremities: no cyanosis clubbing or edema. Right knee dressing. Labs (Last four charted values) WBC 8.4 (APR 22) 6.0 (APR 06) Hgb L 11.3 (APR 22) 14.0 (APR 06) Hct L 33.7 (APR 22) 41.4 (APR 06) Plt 223 (APR 22) 231 (APR 06) Na 137 (APR 22) 140 (APR 06) K 3.8 (APR 22) 4.2 (APR 06) CO2 28.3 (APR 22) 30.2 (APR 06) Cl 106 (APR 22) 106 (APR 06) Cr 0.7 (APR 22) 0.7 (APR 06) BUN H 23 (APR 22) H 24 (APR 06) Glucose Random H 135 (APR 22) H 135 (APR 22) 83 (APR 06) Ca L 8.2 (APR 22) 9.5 (APR 06) INR .9 (APR 06) Assessment and Plan: Presence of right artificial knee joint: - PT/OT - Pain control. Acute posthemorrhagic anemia: expected blood loss with surgery. - Monitor. Elevated blood-pressure reading, without diagnosis of hypertension: blood pressure is much better controlled. She tells me she was started on HCTZ by her urologist for kidney stones. She denies any history of HTN. - Continue HCTZ. - Monitor blood pressure. Morbid (severe) obesity due to excess calories: - Weight loss encouraged. Hypothyroidism, unspecified: - Continue levothyroxine. DVT prophylaxis: will defer to orthopedic surgery. [facility] Utilization Review Noteon Utilization Review Note INPT appropriate per PA Review. INPT order written/electronical ly signed on referral/auth scanned into EMR. [facility] Anesthesiaon 04-21-2019 Anesthesia Patient: MILDRED BRAN Age: 73 years Sex: Female : 1945 Associated Diagnoses: None Author: CLEMENTINE MILLER MD Postoperative Information Time Seen: Date & Time 04/21/2019 14:46:00. Post Operative Info: Post operative day: Post Anesthesia Care Unit. Patient location: PACU. Notes: Patient reports continued pain in PACU. However, patient becomes very sleepy and has episodes of upper airway obstruction when sleeeping. ROSARIO protocal ordered and CPAP machine to be used on floor while patient is receiving narcotic pain medication. . Assessment Postanesthesia assessment Vitals: stable. Mental status: at preoperative baseline. Respiratory support: normal oxygenation and ventilation. Pain: controlled. Nausea status: absence of nausea and vomiting. Postoperative hydration status: euvolemic. [facility] Consult Reporton 04-21-2019 Consult Report Patient: MILDRED BRAN Age: 73 years Sex: Female : 1945 Associated Diagnoses: None Author: BERNARDO HICKS MD Reason for consultation: Elevated blood pressure Chief Complaint: Right knee pain HPI: Ms. Bran is a 73 year old lady who presented for elective right total knee replacement. She has had pain in the right knee for quite a while but got worse over the last few months. She failed conservative management. Surgery was uneventful. She had severe pain after recovering from anesthesia. Her blood pressure was as high as 167/79. She denies any history of HTN although she is on HCTZ. She is unable to tell me why she is on HTCZ. Her blood pressure has improved with treatment of her pain. She denies any headaches, chest pain, shortness of breath, palpitations, blurry vision, dizziness or lightheadedness. PMHx: - Morbid obesity - Depression - Hypothyroidism - OA - ROSARIO (intolerant of NIPPV). - Kidney stones PSHx: - Right total knee replacement on 04/21/2019 - Left rotator cuff repair x 2 - Gastric bypass - Incisional hernia repair - Appendectomy - Hysterectomy SHx: smoked briefly several years ago. No EtOH use. FHx: father in his 80s from complications of Parkinson's disease. Mother is 99. She has heart disease, thyroid disease and HTN. Allergies (3) Active Reaction Adhesive tape allergy rash albuterol excessive coughing Benzoin blister Home Medications (14) Active amitriptyline 10 mg oral tablet 40 mg = 4 tabs, ORAL, QHS calcium citrate 950 mg (200 mg elemental calcium) oral tablet 1,900 mg = 2 tabs, ORAL, DAILY CeleBREX 200 mg oral capsule 200 mg = 1 caps, ORAL, BID Cogniforce Tablets 1 tabs, ORAL, DAILY ferrous sulfate 325 mg (65 mg elemental iron) oral tablet 325 mg = 1 tabs, ORAL, DAILY Flax Seed Oil oral capsule 1 caps, ORAL, DAILY Glucosamine Chondroitin oral capsule 1 caps, ORAL, BID hydroCHLOROthiazide 12.5 mg oral tablet 12.5 mg = 1 tabs, ORAL, DAILY magnesium oxide 400 mg (241.3 mg elemental magnesium) oral tablet 400 mg = 1 tabs, ORAL, DAILY AD oral tablet 1 tabs, ORAL, DAILY Provigil 200 mg oral tablet 100 mg = 0.5 tabs, ORAL, DAILY PROzac 40 mg oral capsule 40 mg = 1 caps, ORAL, DAILY Synthroid 75 mcg (0.075 mg) oral tablet 75 mcg = 1 tabs, ORAL, DAILY Vitamin D3 5000 intl units (125 mcg) oral tablet 10,000 intl_unit = 2 tabs, ORAL, DAILY Review of Systems: General: no fever, chills or night sweats, weight stable. Skin: no rashes or lesions. Head: no headaches. Ears: no hearing loss or tinnitus Eyes: no blurry vision Nose: no discharge. Throat: no dry mouth. Neck: no pain or swelling Respiratory: no cough or sputum production. No shortness of breath Cardiovascular: no chest pain, no leg swelling GI: no nausea, vomiting or diarrhea : No frequency or urgency. Vascular: no calf pain with walking. Musculoskeletal: right knee pain. Hematologic: no easy bleeding or bruising Endocrine: no heat or cold intolerance Neuro: no dizziness or fainting. Physical Exam: Vital Signs (last 24 hrs) Last Charted Temp Oral 36.6 degC (APR 21:) Resp Rate 16 br/min (APR 21:25) SBP 134 mmHg (APR 21:) DBP 74 mmHg (APR 21:) Weight 99 kg (APR 21) Height 152.40 cm (APR 21) BMI 42.63 (APR 21) General: alert, no acute distress, obese, sitting in a recliner. HENT: normocephalic, atraumatic, pupils equal round and reactive to light. Extraocular movements are intact. Neck: supple, non-tender, no carotid bruit. Heart: regular rate and rhythm. No murmurs, rubs or gallops, normal S1 & S2. Lungs: clear to auscultation bilaterally, no wheezing or rhonchi. Abdomen: soft, nontender, normal bowel sounds. Extremities: no cyanosis clubbing or edema. Both legs are wrapped. Neuro: alert, oriented to time, person and place. Pscyh: appropriate mood and affect. Thought process is linear. Speech is not pressured. Skin: no rashes or lesions. Labs (Last four charted values) WBC 6.0 (APR 06) Hgb 14.0 (APR 06) Hct 41.4 (APR 06) Plt 231 (APR 06) Na 140 (APR 06) K 4.2 (APR 06) CO2 30.2 (APR 06) Cl 106 (APR 06) Cr 0.7 (APR 06) BUN H 24 (APR 06) Glucose Random 83 (APR 06) Ca 9.5 (APR 06) INR .9 (APR 06) Assessment and Plan: Presence of right artificial knee joint: - PT/OT - Monitor for blood loss anemia. - Pain control. Elevated blood-pressure reading, without diagnosis of hypertension: blood pressure was 167/79 after surgery. She was in severe pain. She denies any history of HTN although she is on HCTZ. Blood pressure is better controlled. - Continue HCTZ. - Monitor blood pressure. Morbid (severe) obesity due to excess calories: - Weight loss encouraged. Hypothyroidism, unspecified: - Continue levothyroxine. DVT prophylaxis: will defer to orthopedic surgery. Electronically Co-Signed by: BERNARDO HICKS MD on 04/21/2019 17:46 EST Normal [facility] Nursing Clinical Noteon 04-09 Nursing Clinical Note Respiratory here, pt refused bipap, capnography on. Encouraged I.S., up to commode w\ one assist, voided 350. Pt agreeable to try bipap. Call to respiratory. Normal [facility] Nursing Clinical Note 1207 patient to recovery room, very anxious, c/o severe pain. Roland SHAIKH administered fentanyl iv upon patient's arrival in Pacu, see anesthesia record. Patient continues to c/o severe pain, nurse attempted to console the patient unsuccessfully. Dr Gee at the bedside, talking with patient and trying to calm patient down , explaining what the expectations are after this kind of surgery, patient continues to say put me back to sleep and I am going to . Will continue to monitor and address patient's complaint of pain with medication and relaxation techniques 1243 after second dose of dilaudid (see emar), patient was able to doze off and SPO2 dropped to 79% on 3LO2. dr Miller aware of patient's c/o of severe pain, unrelieved by medication and also patient's complaint that nerve block is not working at all. Per dr Miller, patient will not be given any narcotics until she is wide awake and able to maintain SpO2 >92% , patient does have 4LO2 on at this moment. 1410 patient is able to rest comfortably but when asked to rate her incisional pain, she states is 8. Pain intensity is 4 according to FLACC scale. Dr Miller updated on patient's current pain level, also her much more relaxed and calm demeanor, ok to transition patient to next level of care. Will call report to 5E. Normal [facility] Operative Reporton 0 Operative Report Patient: MILDRED BRAN Age: 73 years Sex: Female : 1945 Associated Diagnoses: None Author: IRENA GEE MD SURGEON: Irena Gee MD DIAGNOSIS: Osteoarthritis, right knee. PROCEDURE: Right total knee replacement. EBL: 100 Anesthesia: General block Assistants: Jacqui HISTORY: This is a patient who failed an aggressive conservative care plan for DJD of the knee. It was thought that further conservative care would no longer benefit the patient. After understanding risk and benefits the patient consented to the procedure. Of note this female had a full-thickness area about the superior lateral femoral condyle. She had full-thickness cartilage wear and some delamination about the central patella. She had significant area about the medial tibial plateau with full-thickness cartilage with some eburnated bone below PROCEDURE IN DETAIL: Brought to the operating room, prophylactic antibiotics, saphenous and sciatic nerve block, prepped and draped in normal sterile fashion. The patient was injected intra-articularly also. Tourniquet was up briefly during the case at 275 mmHg. A standard midline incision medial parapatellar arthrotomy performed. ACL and PCL were released. Using the extramedullary tibial cutting guide, tibia was cut appropriately. Alignment guide showed good alignment of the tibial cut. Using the Sigma RP system, sequential femoral cutting jigs were used to cut the femur. Along the way, per standard technique, flexion and extension gaps were balanced as was medial and lateral stability. It was apparent that a size Sigma RP 2.5 femur, a size 10 mm Sigma RP polyethylene plastic, size 2 tibial tray and a 35 mm patellar button best fit the patient. Finishing cuts were performed on the femur, tibia and patella. With the trial components in place, there was good stability in flexion and extension, good patellar tracking and good motion. Trial components were removed. Bony surfaces were copiously irrigated and allowed to dry. Permanent components were cemented in place. The cement was allowed to harden and carefully cleaned. With the permanent components in place, there was good stability in flexion and extension, good patellar tracking, good motion. Tourniquet was let down. There was no excessive bleeding. Copious amounts of antibiotic irrigation were performed. We injected intra-articularly with TXA. Drain was placed. Found to be free from attachment at the end of the case. Deep fascia closed with #2 suture, subcutaneous tissue with 2-0 suture and skin was closed with kassandra. Sterile bandage applied. The patient was awakened from anesthesia and taken to recovery room in stable condition. Normal [facility] PACU Phase I - Main ORon PACU Phase I - Main OR PACU Phase I - Main OR Summary Primary Physician: IRENA GEE MD Finalized Date/Time: 04/21/19 14:29:40 Pt. Name: MILDRED BRAN/Sex: 1945 Female Med Rec #: [id number] Physician: IRENA GEE MD Financial #: [id number] Pt. Type: I Room/Bed: J514/01 Admit/Disch: 04/21/19 08:16:56 - Institution: PACU I - Case Times - Main OR Entry 1 In PACU I 04/21/19 12:07:00 Ready for Transfer 04/21/19 14:29:00 Last Modified By: Chica Domingo RN 04/21/19 14:29:36 Finalized By: Chica Domingo RN Document Signatures Signed By: Chica Domingo RN 04/21/19 14:29 [facility] Preop - Main ORon 04-21-2019 Preop - Main OR Preop - Main OR Summary Primary Physician: IRENA GEE MD Finalized Date/Time: 04/21/19 08:54:02 Pt. Name: MILDRED BRAN/Sex: 1945 Female Med Rec #: [id number] Physician: IRENA GEE MD Financial #: [id number] Pt. 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 There is a total knee arthroplasty. The femoral and tibial components appear well approximated. Air is identified within the surrounding soft tissues. There is an anterior skin staple line. There is a surgical drain in place. IMPRESSION: Postoperative right knee as discussed above Electronically signed by: Mich Dennis MD 04/21/2019 12:07 PM TER[facility]ZZ[facility] JOURNEYMAN Technologist: GEENA Dictated By: MICH DENNIS MD Signed By: MICH DENNIS MD Signed Out: 04/21/19 13:07:03 Normal [facility] Utilization Review Noteon Utilization Review Note WRITTEN ORDER SIGNED AND SCANNED INTO CHART FOR RIGHT TOTAL KNEE ON 04/21/[address] Marie did not go (I must not have selected send), resending referral. INPT appropriate per Dr Marie [facility] VS [facility] 04-08-2019 Reason? OR Normal [facility] Comment on above: Performed By: #### 1 19192, 545303, 077690, 743060 #### [facility] [address] [place], [place] [id number] Behavioral Therapy Coordinator: Floyd Ann MD Antigen Screenon 04-07-2019 Antigen Interpretation c- Normal [facility] Comment on above: Performed By: #### 1 91556, 203473, 615498, 313660 #### [facility] [address] [place] [address] Behavioral Therapy Coordinator: Floyd Ann MD IS 0 Normal [facility] Comment on above: Performed By: #### 1 59990, 433008, 738775, 293390 #### [facility] [address] [place], [place] [id number] [phone] Behavioral Therapy Coordinator: Floyd Ann MD Not Done [facility] Comment on above: Performed By: #### 1 54695, 415185, 428452, 767657 #### [facility] [address] [place] [address] Behavioral Therapy Coordinator: Floyd Ann MD [facility] Not Done [facility] Comment on above: Performed By: #### 1 01239, 374608, 866473, 679804 #### [facility] [address] [place] [address] Behavioral Therapy Coordinator: Floyd Ann MD Not Done [facility] Comment on above: Performed By: #### 1 45230, 545033, 968303, 320916 #### [facility] [address] [place] [address] Behavioral Therapy Coordinator: Floyd Ann MD Exp Date [id number] [facility] Comment on above: Performed By: #### 1 28506, 831455, 606456, 611981 #### [facility] [address] [place] [address] Behavioral Therapy Coordinator: Floyd Ann MD INR Coag (Bld) [Relative time] 0 {INR} [facility] Comment on above: Performed By: #### 1 03922, 166392, 369937, 307657 #### [facility] [address] [place] [address] Behavioral Therapy Coordinator: Floyd Ann MD Lot # [id number] [facility] Comment on above: Performed By: #### 1 05259, 226363, 652286, 236799 #### [facility] [address] [place] [address] Behavioral Therapy Coordinator: Floyd Ann MD [facility] Comment on above: Performed By: #### 1 34839, 947162, 590991, 319648 #### [facility] [address] [place] [address] Behavioral Therapy Coordinator: Floyd Ann MD [facility] Radha 04-07-2019 # Units 1 [facility] Comment on above: Performed By: #### 1 36106, 388687, 759557, 074634 #### [facility] [address] [place] [address] Behavioral Therapy Coordinator: Floyd Ann MD BBID # [id number] [facility] Comment on above: Performed By: #### 1 73135, 517895, 433973, 164200 #### [facility] [address] [place] [address] Behavioral Therapy Coordinator: Floyd Ann MD [facility] Comment on above: Performed By: #### 1 20362, 885166, 350272, 177138 #### [facility] [address] [place] [address] Behavioral Therapy Coordinator: Floyd Ann MD Date of Surgery 04/21/19 [facility] Comment on above: Performed By: #### 1 05714, 061782, 089859, 191950 #### [facility] [address] [place] [address] Behavioral Therapy Coordinator: MD Dakotah Carlson 04-06-2019 Antibody Identification Anti-E [facility] Comment on above: Performed By: #### 1 54799, 463451, 657614, 310544 #### [facility] [address] [place] [address] Behavioral Therapy Coordinator: MD Milton Carlson 04-06-2019 ABO and Rh group Nom (Bld) B POS [facility] Comment on above: Performed By: #### C D:[id number], CD:[id number], CD:[id number], 621310, 7090935, CD:[id number] #### [facility] [address] [place] [address] Behavioral Therapy Coordinator: Floyd Ann MD ABO and Rh group Nom (Bld) B Positive Normal [facility] Comment on above: Performed By: #### C D:[id number], CD:[id number], CD:[id number], 544035, 6828360, CD:[id number] #### [facility] [address] [place] [address] Behavioral Therapy Coordinator: Floyd Ann MD Anti-A recheck 0 Normal [facility] Comment on above: Performed By: #### C D:[id number], CD:[id number], CD:[id number], 905582, 0033317, CD:[id number] #### [facility] [address] [place] [address] Behavioral Therapy Coordinator: Floyd Ann MD Anti-B recheck 4+ [facility] Comment on above: Performed By: #### C D:[id number], CD:124064521, CD:607305531, 346552, 8512442, CD:[id number] #### [facility] [address] [place] [address] Behavioral Therapy Coordinator: Floyd Ann MD Anti-D recheck 3+ Normal [facility] Comment on above: Performed By: #### C D:[id number], CD:878316019, CD:559939661, 019150, 6710872, CD:153307809 #### [facility] [address] [place] [address] Behavioral Therapy Coordinator: Floyd Ann MD Patient History Check No Previous Hx Normal [facility] Comment on above: Performed By: #### C D:[id number], CD:060250560, CD:323544230, 175884, 8622226, CD:[id number] #### [facility] [address] [place] [address] Behavioral Therapy Coordinator: Floyd Ann MD Urea nitrogen [Mass/Vol] 4+ Normal [facility] Comment on above: Performed By: #### C D:[id number], CD:211059101, CD:637561999, 500109, 9396100, CD:[id number] #### [facility] [address] [place] [address] Behavioral Therapy Coordinator: Floyd Ann MD VS 0.8% a cells 3+ Normal [facility] Comment on above: Performed By: #### C D:[id number], CD:362052637, CD:299544619, 250321, 2489190, CD:[id number] #### [facility] [address] [place], [place] [address] Behavioral Therapy Coordinator: Floyd Ann MD VS 0.8% b cells 0 Normal [facility] Comment on above: Performed By: #### C D:[id number], CD:659646490, CD:188711112, 894603, 9852279, CD:[id number] #### [facility] [address] [place], [place] [address] Behavioral Therapy Coordinator: Floyd Ann MD VS Anti-A Unit 0 Normal [facility] Comment on above: Performed By: #### C D:[id number], CD:081724919, CD:493806612, 438840, 5382923, CD:[id number] #### [facility] [address] [place] [address] Behavioral Therapy Coordinator: Floyd Ann MD VS Anti-D Unit 4+ Normal [facility] Comment on above: Performed By: #### C D:[id number], CD:477093241, CD:152945400, 269987, 2440592, CD:[id number] #### [facility] [address] [place] [address] Behavioral Therapy Coordinator: Floyd Ann MD ABSCon 04-06-2019 ABSC Final Interp Positive Abnormal [facility] Comment on above: Result Comment: 03/10 12:04 [id number] See ABID result. Performed By: #### C D:[id number], CD:083372951, CD:449529122, 243866, 8374832, CD:[id number] #### [facility] [address] [place] [address] Behavioral Therapy Coordinator: Floyd Ann MD Pt Hx check done? Yes Normal [facility] Comment on above: Performed By: #### C D:[id number], CD:[id number], CD:345838358, 015765, 1604481, CD:[id number] #### [facility] [address] [place], [place] [address] Behavioral Therapy Coordinator: Floyd Ann MD VS SCI Gel 0 Normal [facility] Comment on above: Performed By: #### C D:[id number], CD:836278005, CD:786834454, 580940, 9497126, CD:[id number] #### [facility] [address] [place] [address] Behavioral Therapy Coordinator: Floyd Ann MD VS SCII Gel 3+ Normal [facility] Comment on above: Performed By: #### C D:[id number], CD:821128319, CD:088144783, 597336, 1532818, CD:[id number] #### [facility] [address] [place] [address] Behavioral Therapy Coordinator: Floyd Ann MD APTTon 04-06-2019 aPTT Coag (Bld) [Time] 37.4 s Normal 28.0-38.0 [facility] Comment on above: Performed By: #### 1 23134, 118676, 884107, 533733 #### [facility] [address] [place] [address] Behavioral Therapy Coordinator: Floyd Ann MD BASICMETAon 04-06-2019 Calcium [Mass/Vol] 9.5 mg/dL Normal 8.5-10.5 [facility] Comment on above: Performed By: #### 1 08199, 179225, 972891, 812303 #### [facility] [address] [place] [address] Behavioral Therapy Coordinator: Floyd Ann MD Chloride [Moles/Vol] 106 mmol/L Normal 100-109 [facility] Comment on above: Performed By: #### 1 61514, 729599, 536096, 219146 #### [facility] [address] [place] [address] Behavioral Therapy Coordinator: Floyd Ann MD CO2, venous 30.2 mmol/L Normal 21.0-32.0 [facility] Comment on above: Performed By: #### 1 82780, 772942, 257707, 738039 #### [facility] [address] [place] [address] Behavioral Therapy Coordinator: Floyd Ann MD Creatinine [Mass/Vol] 0.7 mg/dL Normal 0.6-1.0 [facility] Comment on above: Performed By: #### 1 56651, 464133, 835846, 864562 #### [facility] [address] [place] [address] Behavioral Therapy Coordinator: Floyd Ann MD GFR AA >60 Normal [facility] Comment on above: Result Comment: Afri can French GFR Calc Medical judgement is necessary to interpret GFR. The calculated GFR may not accurately reflect renal status in patients >70 years, women, acutely ill hospitalized patients and patients with acute renal failure or known renal disease. The MDRD GFR formula is valid only for adults greater than 18 years of age. Note: Creatinine clearance (not GFR) should be used for drug dosing. Performed By: #### 1 95744, 926765, 587895, 058124 #### [facility] [address] [place] [address] Behavioral Therapy Coordinator: Floyd Ann MD GFR/1.73 sq M predicted among non-blacks MDRD (S/P/Bld) [Vol rate/Area] mL/min/{1.73_m2} Normal [facility] Comment on above: Result Comment: Non GFR Calc Medical judgement is necessary to interpret GFR. The calculated GFR may not accurately reflect renal status in patients >70 years, women, acutely ill hospitalized patients and patients with acute renal failure or known renal disease. The MDRD GFR formula is valid only for adults greater than 18 years of age. Note: Creatinine clearance (not GFR) should be used for drug dosing. Performed By: #### 1 45341, 801921, 417763, 639149 #### [facility] [address] [place] [address] Behavioral Therapy Coordinator: Floyd Ann MD Glucose [Mass/Vol] 83 mg/dL Normal 72-100 [facility] Comment on above: Result Comment: Radha puncture should occur prior to sulfasalazine administration due to the potential for falsely depressed results. Venipuncture should occur prior to sulfapyridine administration due to the potential falsely elevated results. Baseline assay values before administration of sulfasalazine and sulfapyridine therapy would not be affected. Performed By: #### 1 40439, 209246, [id number], 294472 #### [facility] [address] [place] [address] 01338 Behavioral Therapy Coordinator: Floyd Ann MD Osmolality [Osmolality] 283 mOsm/kg Normal 275-295 [facility] Comment on above: Performed By: #### 1 45604, 745193, 684121, 661792 #### [facility] [address] [place] [address] 44130 Behavioral Therapy Coordinator: Floyd Ann MD Potassium [Moles/Vol] 4.2 mmol/L Normal 3.5-5.1 [facility] Comment on above: Performed By: #### 1 96274, 714277, 325545, 053795 #### [facility] [address] [place] [address] 08586 Behavioral Therapy Coordinator: Floyd Ann MD Sodium [Moles/Vol] 140 mmol/L Normal 135-145 [facility] Comment on above: Performed By: #### 1 73836, 830774, 716624, 164357 #### [facility] [address] [place] [address] 82629 Behavioral Therapy Coordinator: Floyd Ann MD Urea nitrogen [Mass/Vol] 24 mg/dL High 10-20 [facility] Comment on above: Performed By: #### 1 07883, 621954, 613712, 885403 #### [facility] [address] [place] [address] 54328 Behavioral Therapy Coordinator: Floyd Ann MD Urea nitrogen/Creatinine [Mass ratio] 33.9 mg/mg Normal [facility] Comment on above: Performed By: #### 1 12046, 534293, 544558, 416088 #### [facility] [address] [place] [address] 02699 Behavioral Therapy Coordinator: Floyd Ann MD CBCNDon 04-06-2019 Erythrocyte distribution width (RBC) [Ratio] 13.0 % Normal 11.5-14.5 [facility] Comment on above: Performed By: #### 1 04952, 649866, 392459, 551464 #### [facility] [address] [place] [address] 67467 Behavioral Therapy Coordinator: Floyd Ann MD Hematocrit (Bld) [Volume fraction] 41.4 % Normal 36.0-46.0 [facility] Comment on above: Performed By: #### 1 49468, 258240, 668161, 711021 #### [facility] [address] [place] [address] 46773 Behavioral Therapy Coordinator: Floyd Ann MD Hemoglobin (Bld) [Mass/Vol] 14.0 g/dL Normal 12.0-16.0 [facility] Comment on above: Performed By: #### 1 82403, 400692, 652085, 991585 #### [facility] [address] [place] [address] 44983 Behavioral Therapy Coordinator: Floyd Ann MD MCH (RBC) [Entitic mass] 30.4 pg Normal 27.0-34.0 [facility] Comment on above: Performed By: #### 1 32321, 931746, 640078, 391839 #### [facility] [address] [place] [address] 43739 Behavioral Therapy Coordinator: Floyd Ann MD MCHC (RBC) [Mass/Vol] 33.7 g/dL Normal 32.0-37.0 [facility] Comment on above: Performed By: #### 1 95005, 934345, 911394, 792410 #### [facility] [address] [place] [address] 03618 Behavioral Therapy Coordinator: Floyd Ann MD MCV (RBC) [Entitic vol] 90.2 fL Normal 80.0-100.0 [facility] Comment on above: Performed By: #### 1 66762, 412897, 212130, 868981 #### [facility] [address] [place] [address] 56584 Behavioral Therapy Coordinator: Floyd Ann MD Platelet mean volume (Bld) [Entitic vol] 8.4 fL Normal 7.4-10.4 [facility] Comment on above: Performed By: #### 1 57108, 010072, 786692, 769452 #### [facility] [address] [place] [address] 60878 Behavioral Therapy Coordinator: Floyd Ann MD Platelets (Bld) [#/Vol] 231 x1000 Normal 150-450 [facility] Comment on above: Performed By: #### 1 43220, 129530, 095864, 261749 #### [facility] [address] [place] [address] 82418 Behavioral Therapy Coordinator: Floyd Ann MD RBC (Bld) [#/Vol] 4.60 x10 Normal 4.20-5.40 [facility] Comment on above: Result Comment: Note : RBC morphology is normal unless otherwise stated. Evaluation performed only if differential is requested. Performed By: #### 1 99695, 025847, 831245, 243806 #### [facility] [address] [place] [address] 63469 Behavioral Therapy Coordinator: Floyd Ann MD WBC (Bld) [#/Vol] 6.0 x10 Normal 4.5-11.0 [facility] Comment on above: Performed By: #### 1 16811, 751946, 327871, 824143 #### [facility] [address] [place] [address] 83510 Behavioral Therapy Coordinator: Floyd Ann MD WBC (Bld) [#/Vol] 6.0 10*3/uL Normal [facility] Comment on above: Performed By: #### 1 72701, 677484, 205836, 498297 #### [facility] [address] [place] [address] 39740 Behavioral Therapy Coordinator: Floyd Ann MD DATon 04-06-2019 LEILA Polyspecific Interp Negative Normal [facility] Comment on above: Performed By: #### C D:[id number], CD:[id number], CD:[id number], 062300, [id number], CD:[id number] #### [facility] [address] [place] [address] 99903 Behavioral Therapy Coordinator: Floyd Ann MD VS LEILA Poly 0 Normal [facility] Comment on above: Performed By: #### C [id number], CD:[id number], CD:[id number], 412959, 5102970, CD:[id number] #### [facility] [address] [place] [address] [id number] Behavioral Therapy Coordinator: Floyd Ann MD History and Physicalon 04-06 History and Physical Patient: MILDRED BRAN Age: 73 years Sex: Female : 1945 Associated Diagnoses: None Author: VALORIE TOVAR MD Basic Information Source of history: Self. Date of surgery 04/21/2019 Diagnosis: Bilateral primary osteoarthritis of knee Surgeon Dr. Gee Anesthesia: General with lower extremity block Procedure right total knee replacement Chief Complaint Right knee pain History of Present Illness The patient is a 73-year-old female with history of bilateral knee osteoarthritis, depression, obstructive sleep apnea and hypothyroidism. She has been experiencing progressive bilateral knee pain for the past few years, has had physical therapy and steroid injection which were not effective. Recently she has had severe right knee pain. She was evaluated by Dr. Gee and a right total knee replacement was recommended. The patient is agreeable. She denies any chest pain or shortness of breath, no other specific complaints. Review of Systems Constitutional: Negative except as documented in history of present illness. Eye: Negative. Ear/Nose/Mouth/Throa t: Negative except as documented in history of present illness. Respiratory: Negative except as documented in history of present illness. Cardiovascular: Negative except as documented in history of present illness. Gastrointestinal: Negative except as documented in history of present illness. Genitourinary: Negative except as documented in history of present illness. Hematology/Lymphatic s: Negative except as documented in history of present illness. Endocrine: Negative except as documented in history of present illness. Immunologic: Negative except as documented in history of present illness. Musculoskeletal: Negative except as documented in history of present illness. Integumentary: Negative except as documented in history of present illness. Neurologic: Negative except as documented in history of present illness. Psychiatric: Negative except as documented in history of present illness. Health Status Allergies: Allergies (3) Active Reaction Adhesive tape allergy rash albuterol excessive coughing Benzoin blister Current medications: Home Medications (14) Active amitriptyline 10 mg oral tablet 40 mg = 4 tabs, ORAL, QHS calcium citrate 950 mg (200 mg elemental calcium) oral tablet 1,900 mg = 2 tabs, ORAL, DAILY CeleBREX 200 mg oral capsule 200 mg = 1 caps, ORAL, BID Cogniforce Tablets 1 tabs, ORAL, DAILY ferrous sulfate 325 mg (65 mg elemental iron) oral tablet 325 mg = 1 tabs, ORAL, DAILY Flax Seed Oil oral capsule 1 caps, ORAL, DAILY Glucosamine Chondroitin oral capsule 1 caps, ORAL, BID hydroCHLOROthiazide 12.5 mg oral tablet 12.5 mg = 1 tabs, ORAL, DAILY magnesium oxide 400 mg (241.3 mg elemental magnesium) oral tablet 400 mg = 1 tabs, ORAL, DAILY AD oral tablet 1 tabs, ORAL, DAILY Provigil 200 mg oral tablet 100 mg = 0.5 tabs, ORAL PROzac 40 mg oral capsule 40 mg = 1 caps, ORAL, DAILY Synthroid 75 mcg (0.075 mg) oral tablet 75 mcg = 1 tabs, ORAL, DAILY Vitamin D3 5000 intl units (125 mcg) oral tablet 10,000 intl_unit = 2 tabs, ORAL, DAILY Histories Past Medical History: Depression, osteoarthritis, hypertension, sleep apnea, hypothyroidism, anemia Family History: Unremarkable Procedure history: No active procedure history items have been selected or recorded., Unremarkable Social History . No tobacco alcohol or drug use Physical Examination VS/Measurements Vital Signs (last 24 hrs) Last Charted Resp Rate 18 br/min (APR 06:) SBP 120 mmHg (APR 06:47) DBP 77 mmHg (APR 06:) Weight 99.9 kg (APR 06:) Height 152.40 cm (APR 06:) BMI 43.01 (APR 06:) General: Alert and oriented. Eye: Pupils are equal, round and reactive to light, Extraocular movements are intact. HENT: Normocephalic, Oral mucosa is moist. Neck: Supple, No jugular venous distention. Respiratory: Lungs are clear to auscultation, Breath sounds are equal. Cardiovascular: Normal rate, Regular rhythm, No murmur. Gastrointestinal: Soft, Non-tender, Non-distended, Normal bowel sounds. Genitourinary: No costovertebral angle tenderness. Musculoskeletal: Normal range of motion. Integumentary: Warm, Dry. Neurologic: Alert, Oriented, Cranial Nerves II-XII are grossly intact. Cognition and Speech: Oriented, Speech clear and coherent. Psychiatric: Cooperative. Review / Management Results review: Labs (Last four charted values) WBC 6.0 (APR 06) Hgb 14.0 (APR 06) Hct 41.4 (APR 06) Plt 231 (APR 06) . EKG indicated normal sinus rhythm, heart rate at 78, nonspecific ST-T changes Impression and Plan Bilateral knee primary osteoarthritis for right total knee replacement--the patient is medically stable, may proceed with scheduled procedure Depression--continue home meds Hypothyroidism Obstructive sleep apnea BMI 43 Preop antibiotic will be ordered Normal [facility] PT INRon 04-06-2019 INR Coag (PPP) [Relative time] 0.9 {INR} Normal [facility] Comment on above: Result Comment: Norm al reference range for INR on patients not on anticoagulant therapy: 0.9-1.1. General therapeutic range for patients on anticoagulant therapy: 2.0-3.5. Performed By: #### 1 72470, 847562, 664460, 504254 #### [facility] [address] [place], [place] [id number] Behavioral Therapy Coordinator: Floyd Ann MD Protime Patient 10.5 seconds Normal 9.7-12.7 [facility] Comment on above: Performed By: #### 1 16887, 426872, 511974, 736366 #### [facility] [address] [place], [place] [id number] Behavioral Therapy Coordinator: Floyd Ann MD Preadmission Testing Progres s Noteon 04-06-2019 Preadmission Testing Progress Note PREADMISSION TESTING (PAT) INSTRUCTION SHEET [ XX ] Bring your Surgery Guide with you on day of surgery [ XX ] Read and complete your Discharge Planning Checklist [XX ] Take only highlighted medications on morning of surgery [ XX ] Stop all vitamins and herbal supplements 7 days prior to surgery (unless otherwise instructed) [ XX ] Total Joint Class: Date: [ 04-06-2019 ] Time: [ ] [XX ] Bring on day of surgery: [ ] Brace [ XX ] Incentive Spirometer [ ] Crutches (leave in car) [ ] Inhaler [ ] C-pap machine [ ] Oxygen [ XX ] Green blood band (in Surgery Guide) [ ] Other: [ ] Additional instructions: Normal [facility] UAon 04-06-2019 Appearance, U Hazy Normal [facility] Comment on above: Performed By: #### 1 78397 #### [facility] [address] [place] [address] 52799 Behavioral Therapy Coordinator: Floyd Ann MD Bilirubin, U Negative Normal Negative [facility] Comment on above: Performed By: #### 1 30879 #### [facility] [address] [place] [address] 68615 Behavioral Therapy Coordinator: Floyd Ann MD Blood, U Negative Normal Negative [facility] Comment on above: Performed By: #### 1 54807 #### [facility] [address] [place] [address] 48907 Behavioral Therapy Coordinator: Floyd Ann MD Color, U Awilda Normal [facility] Comment on above: Performed By: #### 1 88753 #### [facility] [address] [place] [address] 05734 Behavioral Therapy Coordinator: Floyd Ann MD Glucose Qual, U Negative Normal Negative [facility] Comment on above: Performed By: #### 1 40662 #### [facility] [address] [place] [address] 57239 Behavioral Therapy Coordinator: Floyd Ann MD Ketones, U Trace Abnormal Negative [facility] Comment on above: Performed By: #### 1 03794 #### [facility] [address] [place] [address] 39121 Behavioral Therapy Coordinator: Floyd Ann MD Leukocyte Esterase, U Negative Normal Negative [facility] Comment on above: Performed By: #### 1 63746 #### [facility] [address] [place] [address] 96528 Behavioral Therapy Coordinator: Floyd Ann MD Nitrite, U Negative Normal Negative [facility] Comment on above: Performed By: #### 1 08973 #### [facility] [address] [place] [address] 49642 Behavioral Therapy Coordinator: Floyd Ann MD pH, U 5.0 Normal 4.5-8.0 [facility] Comment on above: Performed By: #### 1 45984 #### [facility] [address] [place] [address] 98390 Behavioral Therapy Coordinator: Floyd Ann MD Protein, U Negative Normal Negative [facility] Comment on above: Performed By: #### 1 67693 #### [facility] [address] [place] [address] 26287 Behavioral Therapy Coordinator: Floyd Ann MD RBC/HPF, U <1 Normal 0-3 [facility] Comment on above: Performed By: #### 1 56471 #### [facility] [address] [place] [address] 47411 Behavioral Therapy Coordinator: Floyd Ann MD Specific [place], U 1.026 Normal 1.001-1.035 [facility] Comment on above: Performed By: #### 1 93673 #### [facility] [address] [place] [address] 70539 Behavioral Therapy Coordinator: Floyd Ann MD Squamous Epithelial Cells, U <1 Normal [facility] Comment on above: Performed By: #### 1 15908 #### [facility] [address] [place] [address] 34853 Behavioral Therapy Coordinator: Floyd Ann MD U MICRO Not Indicated Normal [facility] Comment on above: Performed By: #### 1 59313 #### [facility] [address] [place] [address] 50817 Behavioral Therapy Coordinator: Floyd Ann MD Urobilinogen Qual, U 0.2 EU/dl Normal 0.1-1.0 mg/dl [facility] Comment on above: Result Comment: EU/d l and mg/dl are equivalent units. Performed By: #### 1 95807 #### [facility] [address] [place] [address] [id number] Behavioral Therapy Coordinator: Floyd Ann MD WBC/HPF, U 2 #/HPF Normal 0-5 [facility] Comment on above: Performed By: #### 1 90760 #### [facility] [address] [place], [place] [id number] Behavioral Therapy Coordinator: Floyd Ann MD Vital Signs Date Time Vital Sign Value Performing Clinician Facility 10-01-2023 09:51-0400 Diastolic blood pressure 65 mm[Hg] Palomo Bernard [facility] 10-01-2023 09:51-0400 Heart rate 74 /min Palomo Bernard [facility] 10-01-2023 09:51-0400 Mean blood pressure 82 mm[Hg] Palomo Bernard [facility] 10-01-2023 09:51-0400 Respiratory rate 14 /min Palomo Bernard [facility] 10-01-2023 09:51-0400 Systolic blood pressure 116 mm[Hg] Palomo Bernard [facility] 05-11-2023 09:21-0500 Body temperature 98.06 [degF] Melissa Hooks [facility] 05-11-2023 09:21-0500 Diastolic blood pressure 61 mm[Hg] Melissa Neva [facility] 05-11-2023 09:21-0500 Heart rate 80 /min Melissa Neva [facility] 05-11-2023 09:21-0500 Respiratory rate 16 /min Melissa Neva [facility] 05-11-2023 09:21-0500 SaO2% (BldA) [Mass fraction] 100 % Melissa Neva [facility] 05-11-2023 09:21-0500 Systolic blood pressure 144 mm[Hg] Melissa Hooks [facility] 09-27-2021 09:56-0400 Diastolic blood pressure 54 mm[Hg] MD Lisandra Ring Work Phone: [facility] 09-27-2021 09:56-0400 Heart rate 62 /min MD Lisandra Ring Work Phone: [facility] 09-27-2021 09:56-0400 Respiratory rate 18 /min MD Lisandra Ring Work Phone: [facility] 09-27-2021 09:56-0400 SaO2% (BldA) [Mass fraction] 98 % MD Lisandra Ring Work Phone: [facility] 09-27-2021 09:56-0400 Systolic blood pressure 158 mm[Hg] MD Lisandra Ring Work Phone: [facility] 09-27-2021 08:07-0400 Body height 152.4 cm MD Lisandra Ring Work Phone: [facility] 09-27-2021 08:07-0400 Body temperature 98 [degF] MD Lisandra Ring Work Phone: [facility] 09-27-2021 08:07-0400 Body weight 97.52 kg MD Lisandra Ring Work Phone: [facility] Encounters Encounter Date Encounter Type Care Provider Facility Start: 02-08-2024 ambulatory MD Bony Calhoun Facil ity:[facility] Start: 12-29-2023 ambulatory MD Bony Calhoun Facil ity:[facility] Start: 10-01-2023 End: 10-01-2023 ambulatory [facility]omo [facility] [place] [place]: 10-01-2023 End: 10-01-2023 Patient encounter procedure Palomo Bernard [facility] Start: 10-01-2023 End: 10-01-2023 ambulatory Palomo Bernard [place] Start: 10-01-2023 End: 10-01-2023 Pain Management Palomo TonoAshlyn Bernard [facility] Start: 09-28-2023 End: 09-28-2023 Lab Drop off Bony Calhoun [facility] Start: 09-28-2023 End: 09-28-2023 ambulatory Bony Calhoun [place] Start: 05-11-2023 End: 05-11-2023 Emergency department patient visit Melissa Hooks [facility] Start: 03-30-2023 End: 03-30-2023 ambulatory MD Bony Calhoun Facility:[facility] Start: 02-23-2023 End: 02-23-2023 ambulatory MD Bony Calhoun Facility:[facility] Start: 02-06-2023 End: 02-06-2023 ambulatory MD Bony Calhoun Facility:[facility] Start: 12-22-2022 End: 12-22-2022 Lab Drop off Bony Calhoun [facility] Start: 12-22-2022 End: 12-22-2022 ambulatory MD Bony Calhoun [place] Start: 08-25-2022 End: 08-25-2022 Patient encounter procedure Princess HARO [facility] Start: 06-11-2022 Encounter for preprocedural cardiovascular examination DR DOCTOR MCKOY [facility] Start: 06-05-2022 End: 06-06-[address] LISANDRA RING . Facility:[facility] Start: 06-05-2022 End: 06-06-2022 Encounter for preprocedural cardiovascular examination DR DOCTOR MCKOY Facility:[facility] Start: 05-14-[address] PRINCESS HARO . Fac ility:[facility] Start: 04-21-2022 End: 04-21-2022 Patient encounter procedure Princess HARO [facility] Start: 04-10-2022 End: 04-10-2022 ambulatory IVANNA LEZAMA Facility:[facility] Start: 12-11-2021 End: 12-12-[address] LISANDRA RING . Facility:[facility] Start: 09-27-2021 End: 09-27-2021 Admission to same day surgery center MD Lisandra Ring Work Phone: [facility] Start: 09-26-2021 End: 09-26-2021 ambulatory TORIE FOSTER . Facility:[facility] Start: 09-25-2021 End: 09-25-2021 Patient encounter procedure MD Lisandra Ring Work Phone: [facility] Start: 08-23-2021 End: 08-24-[address] LISANDRA RING . Facility:[facility] Start: 08-20-2021 End: 08-21-[address] LISANDRA RING . Facility:[facility] Start: 08-15-2021 End: 08-16-[address] LISANDRA RING . Facility:[facility] Procedures Date Procedure Procedure Detail Performing Clinician Start: 09-27-2021 Diagnostic endoscopi c examination on colon MD Lisandra Ring Work Phone: Start: 07-19-2019 Extracorporeal shock wave lithotripsy of calculus of kidney Princess HARO Start: 04-15-2018 Lithotripsy Princess LLANES Start: 04-08-2018 Lithotripsy using laser Princess HARO Appendectomy Princess HARO Arthroscopic repair of rotator cuff [facility] Bernard Comment on above: x2 Bypass of stomach Princess LLANES Colonoscopy Princess HARO Hernia repair Princess HARO Hysterectomy Princess HARO Removal of stent Princess YOUNG ERS Repair of vagina Princess YOUNG ERS SARS Antigen (LFIA) MD Lisandra erwin Work Phone: Plan of Treatment Date Care Activity Detail Author Start: 09-27-2021 [facility] Work Phone: Immunizations Immunization Date Immunization Notes Care Provider Fa cili 02-17-2023 influenza virus vaccine, unspecified formulation Melissa Hooks [facility] 12-19-2021 influenza virus vaccine, unspecified formulation Princess HARO [facility] 12-19-2021 SARS-CoV-2 (COVID-19 ) [id number] Princess HARO [facility] Comment on above: Result Comment: 2022: [id number] 07-05-2021 COVID-19 [id number] (Moderna) MD Lisandra Ring Work Phone: [facility] Comment on above: Result Comment: 2022: TPV70 04-20-2021 zoster vaccine recombinant Princess HARO [facility] 01-10-2021 zoster vaccine recombinant Princess HARO [facility] 12-03-2020 COVID-19 mRNA, Comirnaty (Pfizer) MD Lisandra Ring Work Phone: [facility] Comment on above: Result Comment: 2022: [id number] 12-03-2020 influenza virus vaccine, unspecified formulation Princess HARO [facility] 05-06-2020 COVID-19 mRNA, Comirnaty (Pfizer) MD Lisandra Ring Work Phone: [facility] Comment on above: Result Comment: 2022: [id number] 04-15-2020 COVID-19 Dakota Teixeira (Pfizer) MD Lisandra Ring Work Phone: [facility] Comment on above: Result Comment: 2022: TPV70 12-21-2019 influenza virus vaccine, unspecified formulation [employer] [facility] 12-31-2018 influenza virus vaccine, unspecified formulation [employer] [facility] 12-10-2017 influenza virus vaccine, unspecified formulation [employer] [facility] 12-18-2016 influenza virus vaccine, unspecified formulation [employer] [facility] 12-28-2015 influenza virus vaccine, unspecified formulation [employer] [facility] 12-22-2014 influenza, whole Princess HANNAH ERS [facility] 12-22-2014 pneumococcal conjuga te vaccine, 13 valent Princess HARO [facility] 12-07-2014 pneumococcal polysaccharide vaccine, 23 valent Princess HARO [facility] 02-10-2012 influenza, whole [facility] HANNAH ERS [facility] 02-02-2006 hepatitis A and hepatitis B vaccine [employer] [facility] 02-02-2006 Td(adult) unspecifie d formulation [employer] [facility] 03-14-2005 DTaP, unspecified formulation [employer] [facility] NEGATED: Highlighted row has not occurred!12-22-2022 influenza virus vaccine, unspecified formulation Bony Calhoun [facility] Payers Date Payer Category Payer Medicare [id number] 1957 Self-pay [id number] 1959 Unknown [id number] 1945 Unknown [id number] 2.16.840.1.966641.3.579.2.5 1947 Unknown [id number] 2.16.840.1.997071.3.579.2.5 1947 Unknown [id number] 2.16.840.1.200999.3.579.2.5 1947 Unknown [id number] 2.16.840.1.888819.3.579.2.5 1947 Unknown [id number] 2.16.840.1.394652.3.579.2.5 1947 Unknown [id number] 2.16.840.1.357629.3.579.2.5 1947 Unknown [id number] 2.16.840.1.628271.3.579.2.5 93 1947 Unknown [id number] 2.16.840.1.321816.3.579.2.5 93 1947 Unknown [id number] 2.16.840.1.453215.3.579.2.5 1947 Unknown [id number] 2.16.840.1.602712.3.579.2.7 1947 Unknown [id number] 2.16.840.1.345648.3.579.2.7 1947 Unknown [id number] 2.16.840.1.654989.3.579.2.7 27 1947 Unknown [id number] 2.16.840.1.923885.3.579.2.7 27 1947 Unknown [id number] 2.16.840.1.183691.3.579.2.7 27 1947 Unknown [id number] 2.16.840.1.553275.3.579.2.7 27 1947 Unknown [id number] 2.16.840.1.069018.3.579.2.7 27 1947 Unknown [id number] 2.16.840.1.860184.3.579.2.7 27 1947 Unknown [id number] 2.16.840.1.806437.3.579.2.7 27 1947 Unknown [id number] 2.16.840.1.512841.3.579.2.7 27 1947 Unknown [id number] 2.16.840.1.920968.3.579.2.7 27 1947 Unknown [id number] 2.16.840.1.504512.3.579.2.7 27 Private Health Insurance [facility] [id number] Private Health Insurance [facility] [id number] Self-pay Self Pay [id number] Social History Date Type Detail Facility Tobacco smoking stat [facility] Unknown if ever smoked [facility] Work Phone: Start: 1945 Sex Assigned At Female F [facility] Start: 12-20-2018 End: 09-28-2023 Tobacco smoking status Never smoked tobacco (finding) [facility] Comment on above: denies Sex Assigned At Female [facility] Tobacco smoking status Never [facility] Comment on above: denies Goals Date Patient Goal Desired Activity /State Functional Status Date Assessment Result Facility 10-01-2023 Functional Status N/A [facility] 05-11-2023 Functional Status N/A [facility] Clinical Notes 09-27-2021 to 10-01-2023 Note Date & Type Note Facility 10-01-2023 Evaluation + Plan note [facility] from: Title:chronic pain Author:Palomo Bernard DO Date:10/01/23 Patient is presenting with c omplaints of low back pain that is axial in nature as well as pain that goes up and down her back that appears to be muscular in nature, she also has left posterior buttock pain and pain over her left trochanteric bursa. The most significant area of pain for her is in her low back and left hip. She rates these painful areas as an 8/10 and knees are acutely exacerbated when she gets started moving slightly improved with movement and that are worse after prolonged movement or at the end of the day. She has taken Tylenol without significant lasting relief for these painful areas, she has taken Celebrex that was initially helpful and is not as effective as it was initially. She has had pain in these areas for over 1 year without any significant relief. She has not started in formal physical therapy for this. This pain is nonradiating in nature. On examination today the trochanteric bursitis appears to be new with acute onset today. ULICES Score: 29% PHQ-2: 2 Patient denies any symptoms of progressively worsening upper/lower extremity weakness, progressively worsening gait abnormality, new onset bowel/bladder incontinence/ urinary retention, or saddle anesthesia. No new or worsening symptoms of fever, chills, night sweats. 14 Point Review of systems negative unless otherwise noted. General: No acute distress. Patient appears well-nourished. HEENT: Head is normocephalic and external ears are normal in appearance. Cardiovascular: No signs of poor perfusion and no peripheral edema Pulmonary: Nonlabored breathing, symmetric chest movement. GI: Abdomen nondistended Integumentary: No lesions Neurologic: Alert, oriented x3. 5/5 strength grossly in the bilateral upper extremities. Sensation intact to light touch in the bilateral upper extremities. 5/5 strength grossly in the bilateral lower extremities. Sensation intact to light touch in the bilateral lower extremities. MSK/Special Testing: Negative Jen sign bilaterally, seated straight leg raise test not reproduce radicular symptoms bilaterally, mild tenderness to palpation lumbar paraspinal musculature bilaterally. Lumbar facet loading reproduced axial pain only bilaterally. NITZA and Stinchfield reproduced mild pain on the left only. Tenderness palpation over the left trochanteric bursa. History, physical examination, and personal review of pertinent imaging results indicate a diagnosis of: -Lumbar spondyloarthropathy -Myofascial pain -Left trochanteric bursitis -Left hip pain Plan: -Patient has multifactorial pain and we discussed a plan to treat these areas sequentially, we discussed starting with physical therapy to target her low back and hip. For her low back this appears to be secondary to spondyloarthropathy in nature we can consider lumbar medial branch blocks to target the L4/5 and L5/S1 facet joints under fluoroscopic guidance anticipation of radiofrequency ablation if physical therapy does not provide effective lasting relief for her. -We will start her on baclofen 5 mg 3 times daily to treat her myofascial pain -She has left trochanteric bursitis a home exercise program was prescribed today we can follow-up in the office for an injection if it is not better in a few weeks -We will obtain x-rays of her left hip to better delineate what is going on and consider left hip intra-articular corticosteroid injection. Patient was counseled on the above diagnosis and treatment, all questions were answered and patient agrees to adhere to the plan above. Risk and benefits of appropriate procedures and medications were reviewed as well with patient, who voiced understanding and agreeance. Patient was counseled on appropriate use of opioids if prescribed or renewed today and naloxone was offered to patient if opioids were prescribed or maintained at this visit. PHQ-2 scoring reviewed with patient and discussed seeking treatment for depression or mood disorder as appropriate. Patient was counseled on smoking cessation and/or continuing to abstain from nicotine/tobacco products as appropriate based on history; as smoking/nicotine can contribute to increased pain overall and decreased wound healing. Patient counseled on maintaining a healthy BMI as part of the total treatment of their pain and to reduce stress/strain on joints. Patient invited to return or call with any questions or concerns that arise. Future Appointments Appointment Date:12/29/2023 10:00:00 AM Scheduled Provider:Bony Calhoun MD Location[facility] Appointment Type:FM Open Appointment Date:02/08/2024 08:00:00 AM Scheduled Provider: Location:[facility] Appointment Type:FM Medicare Wellness Subsequent [facility] 07-25-2024 NoteConsultation Note Patient is presenting with complaints of low back pain that is axial in nature as well as pain thatgoes up and down her back that appears to be muscular in nature, she also has left posterior buttock pain and pain over her left trochanteric bursa. The most significant area of pain for her is in her low back and left hip. She rates these painful areas as an 8/10 and knees are acutely exacerbated when she gets started moving slightly improved with movement and that are worse after prolonged movement or at the end of the day. She has taken Tylenol without significant lasting relief for these painful areas, she has taken Celebrex that was initially helpful and is not as effective as it was init ially. She has had pain in these areas for over 1 year without any significant relief. She has not started in formal physical therapy for this. This pain is nonradiating in nature. On examination today the trochanteric bursitis appears to be new with acute onset today. ULICES Score: 29% PHQ-2: 2 Patient denies any symptoms of progressively worsening upper/lower extremity weakness, progressively worsening gait abnormality, new onset bowel/bladder incontinence/ urinary retention, or saddle anesthesia. No new or worsening symptoms of fever, chills, night sweats. 14 Point Review of systems negative unless otherwise noted. General: No acute distress. Patient appears well-nourished. HEENT: Head is normocephalic and external ears are normal in appearance. Cardiovascular: No signs of poor perfusion and no peripheral edema Pulmonary: Nonlabored breathing, symmetric chest movement. GI: Abdomen nondistended Integumentary: No lesions Neurologic: Alert, oriented x3. 5/5 strength grossly in the bilateral upper extremities. Sensation intact to light touch in the bilateral upper extremities. 5/5 strength grossly in the bilateral lower extremities. Sensation intact to light touch in the bilateral lower extremities. MSK/Special Testing: Negative Jen sign bilaterally, seated straight leg raise test not reproduce radicular symptoms bilaterally, mild tenderness to palpation lumbar paraspinal musculature bilaterally. Lumbar facet loading reproduced axial pain only bilaterally. NITZA and Stinchfield reproducedmild pain on the left only. Tenderness palpation over the left trochanteric bursa. History, physical examination, and personal review of pertinent imaging results indicate a diagnosis of: -Lumbar spondyloarthropathy -Myofascial pain -Left trochanteric bursitis -Left hip pain Plan: -Patient has multifactorial pain and we discussed a plan to treat these areas sequentially, we discussed starting with physical therapy to target her low back and hip. For her low back this appears to be secondary to spondyloarthropathy in nature we can consider lumbar medial branch blocks to target the L4/5 and L5/S1 facet joints under fluoroscopic guidance anticipation of radiofrequency ablation if physical therapy does not provide effective lasting relief for her. -We will start her on baclofen 5 mg 3 times daily to treat her myofascial pain -She has left trochanteric bursitis a home exercise program was prescribed today we can follow-up in the office for an injection if it is not better in a few weeks -We will obtain x-rays of her left hip to better delineate what is going on and consider left hip intra-articular corticosteroid injection. Patient was counseled on the above diagnosis and treatment, all questions were answered and patientagrees to adhere to the plan above. Risk and benefits of appropriate procedures and medications were reviewed as well with patient, who voiced understanding and agreeance. Patient was counseled on appropriate use of opioids if prescribed or renewed today and naloxone was offered to patient if opioids were prescribed or maintained at this visit. PHQ-2 scoring reviewed with patient and discussed seeking treatment for depression or mood disorder as appropriate. Patient was counseled on smoking cessation and/or continuing to abstain from nicotine/tobacco products as appropriate based on history; as smoking/nicotine can contribute to increased pain overall and decreased wound healing. Patient counseled on maintaining a healthy BMI as part of the total treatment of their pain and to reduce stress/strain on joints. Patient invited to return or call with any questions or concerns that arise.[facility]:Result Comment: Electronically Signed By: Palomo Bernard DO.francisco\Date and Time Signed: 10/01/23 11:07 [id number] Evaluation + Plan noteExtracted from: Title:ED Note Author:Melissa Hooks DO Date:05/10 Hemorrhagic cystitis (N30.91 : Cystitis, unspecified with hematuria) Ureterolithiasis (N20.1: Calculus of ureter) Ordered: acetaminophen-oxycodone, 1 tab(s), Oral, q6hr for 3 day(s), 10 tab(s), Refill(s) 0, [facility]/pharmacy #[id number], 152, cm, 05/11/23 9:24:00 EST, Height/Length Dosing, 89, kg, 05/11/23 9:24:00 EST, Weight Dosing Orders: ciprofloxacin, 500 mg = 1 tab(s), Oral, BID, X 5 day(s), # 10 tab(s), Refills(s) 0, Pharmacy: [facility]/pharmacy #[id number], 152, cm, 05/11/23 9:24:00 EST, Height/Length Dosing, 89, kg, 05/11/23 9:24:00 EST, Weight Dosing tamsulosin, 0.4 mg = 1 cap(s), Oral, Daily, Take one capsule by mouth daily for four days, # 4 cap(s), Refills(s) 0, Pharmacy: [facility]/pharmacy #[id number], 152, cm, 05/11/23 9:24:00 EST, Height/Length Dosing, 89, kg, 05/11/23 9:24:00 EST, Weight Dosing CBC w/ Auto Diff Comprehensive Metabolic Panel CT Abdomen/Pelvis w/o Contrast eGFR Extra SST Tube PT & PTT UA With Cult Reflex Future Appointments Appointment Date:09/28/2023 10:30:00 AM Scheduled Provider:Bony Calhoun MD [facility] Appointment Type: Open Appointment Date:02/08/2024 08:00:00 AM Scheduled Provider: Location:[facility] Appointment Type:FM Medicare Wellness Subsequent [facility]03-04-2024 Hospital Discharge instructions Follow Up Care 05/11/2023 09:13:34 With:Ronnell LYLE Address: [address] [place], [place] [id number] Business (1) When:05/11/2023 11:12:30 Comments:Call Dr for diagnosis based follow up [facility]06-19-2023 Hospital Discharge instructions Patient Education 08/25/2022 08:24:21 Dietary Guidelines to Help Prevent Kidney Stones Dietary Guidelines to Help Prevent Kidney Stones Kidney stones are deposits of minerals and salts that form inside your kidneys. Your risk of developing kidney stones may be greater depending on your diet, your lifestyle, the medicines you take, and whether you have certain medical conditions. Most people can lower their chances of developing kidney stones by following the instructions below. Your dietitian may give you more specific instructions depending on your overall health and the type of kidney stones you tend to develop. What are tips for following this plan? Reading food labels Choose foods with no salt added or low-salt labels. Limit your salt (sodium) intake to less than 1,500 mg a day. Choose foods with calcium for each meal and snack. Try to eat about 300 mg of calcium at each meal.Foods that contain 200 500 mg of calcium a serving include: ?8 oz (237 mL) of milk, oihwhyz-bnqynaaivubg-mowta milk, and calcium- fortifiedfruit juice. Calcium-fortified means that calcium has been added to these drinks. ?8 oz (237 mL) of kefir, yogurt, and soy yogurt. ?4 oz (114 g) of tofu. ?1 oz (28 g) of cheese. ?1 cup (150 g) of dried figs. ?1 cup (91 g) of cooked broccoli. ?One 3 oz (85 g) can of sardines or mackerel. Most people need 1,000 1,500 mg of calcium a day. Talk to your dietitian about how much calcium is recommended for you. Shopping Buy plenty of fresh fruits and vegetables. Most people do not need to avoid fruits and vegetables, even if these foods contain nutrients that may contribute to kidney stones. When shopping for convenience foods, choose: ?Whole pieces of fruit. ?Pre-made salads with dressing on the side. ?Low-fat fruit and yogurt smoothies. Avoid buying frozen meals or prepared deli foods. These can be high in sodium. Look for foods with live cultures, such as yogurt and kefir. Choose high-fiber grains, such as whole-wheat breads, oat bran, and wheat cereals. Cooking Do not add salt to food when cooking. Place a salt shaker on the table and allow each person to addhis or her own salt to taste. Use vegetable protein, such as beans, textured vegetable protein (TVP), or tofu, instead of meat inpasta, casseroles, and soups. Meal planning Eat less salt, if told by your dietitian. To do this: ?Avoid eating processed or pre-made food. ?Avoid eating fast food. Eat less animal protein, including cheese, meat, poultry, or fish, if told by your dietitian. To dothis: ?Limit the number of times you have meat, poultry, fish, or cheese each week. Eat a diet free of meat at least 2 days a week. ?Eat only one serving each day of meat, poultry, fish, or seafood. ?When you prepare animal protein, cut pieces into small portion sizes. For most meat and fish, one serving is about the size of the palm of your hand. Eat at least five servings of fresh fruits and vegetables each day. To do this: ?Keep fruits and vegetables on hand for snacks. ?Eat one piece of fruit or a handful of berries with breakfast. ?Have a salad and fruit at lunch. ?Have two kinds of vegetables at dinner. Limit foods that are high in a substance called oxalate. These include: ?Spinach (cooked), rhubarb, beets, sweet potatoes, and Malagasy chard. ?Peanuts. ?Potato chips, yakut fries, and baked potatoes with skin on. ?Nuts and nut products. ?Chocolate. If you regularly take a diuretic medicine, make sure to eat at least 1 or 2 servings of fruits or vegetables that are high in potassium each day. These include: ?Avocado. ?Banana. ?Herreid, prune, carrot, or tomato juice. ?Baked potato. ?Cabbage. ?Beans and split peas. Lifestyle Drink enough fluid to keep your urine pale yellow. This is the most important thing you can do. Spread your fluid intake throughout the day. If you drink alcohol: ?Limit how much you use to: ?0 1 drink a day for women who are not . ?0 2 drinks a day for men. ?Be aware of how much alcohol is in your drink. In the [place] one drink equals one 12 oz bottle of beer (355 mL), one 5 oz glass of wine (148 mL), or one 1 oz glass of hard liquor (44 mL). Lose weight if told by your health care provider. Work with your dietitian to find an eating plan and weight loss strategies that work best for you. General information Talk to your health care provider and dietitian about taking daily supplements. You may be told thefollowing depending on your health and the cause of your kidney stones: ?Not to take supplements with vitamin C. ?To take a calcium supplement. ?To take a daily probiotic supplement. ?To take other supplements such as magnesium, fish oil, or vitamin B6. Take unyt-env-lvozpms and prescription medicines only as told by your health care provider. These include supplements. What foods should I limit? Limit your intake of the following foods, or eat them as told by your dietitian. Vegetables Spinach. Rhubarb. Beets. Canned vegetables. Pickles. Olives. Baked potatoes with skin. Grains Wheat bran. Baked goods. Salted crackers. Cereals high in sugar. Meats and other proteins Nuts. Nut butters. Large portions of meat, poultry, or fish. Salted, precooked, or cured meats, such as sausages, meat loaves, and hot dogs. Dairy Cheese. Beverages Regular soft drinks. Regular vegetable juice. Seasonings and condiments Seasoning blends with salt. Salad dressings. Soy sauce. Ketchup. Barbecue sauce. Other foods Canned soups. Canned pasta sauce. Casseroles. Pizza. Lasagna. Frozen meals. Potato chips. Belarusian fries. The items listed above may not be a complete list of foods and beverages you should limit. Contact a dietitian for more information. What foods should I avoid? Talk to your dietitian about specific foods you should avoid based on the type of kidney stones youhave and your overall health. Fruits Grapefruit. The item listed above may not be a complete list of foods and beverages you should avoid. Contact adietitian for more information. Summary Kidney stones are deposits of minerals and salts that form inside your kidneys. You can lower your risk of kidney stones by making changes to your diet. The most important thing you can do is drink enough fluid. Drink enough fluid to keep your urine pale yellow. Talk to your dietitian about how much calcium you should have each day, and eat less salt and animal protein as told by your dietitian. This information is not intended to replace advice given to you by your health care provider. Make sure you discuss any questions you have with your health care provider. Document Revised: 11/04/2021 Document Reviewed: 11/04/2021 [employer] Patient Education 2022 [employer]. Follow Up Care 04/21/2022 10:28:56 With:TAHIR RODRIGUEZ, Princess Pena, URL Address: [facility] [address], [place] [id number]- When: Unknown [facility] 02-13-2023 Hospital Discharge instructions Patient Education 04/21/2022 08:03:10 Dietary Guidelines to Help Prevent Kidney Stones Dietary Guidelines to Help Prevent Kidney Stones Kidney stones are deposits of minerals and salts that form inside your kidneys. Your risk of developing kidney stones may be greater depending on your diet, your lifestyle, the medicines you take, and whether you have certain medical conditions. Most people can reduce their chances of developing kidney stones by following the instructions below. Depending on your overall health and the type of kidney stones you tend to develop, your dietitian may give you more specific instructions. What are tips for following this plan? Reading food labels Choose foods with no salt added or low-salt labels. Limit your sodium intake to less than 1500 mg per day. Choose foods with calcium for each meal and snack. Try to eat about 300 mg of calcium at each meal.Foods that contain 200 500 mg of calcium per serving include: ?8 oz (237 ml) of milk, fortified nondairy milk, and fortified fruit juice. ?8 oz (237 ml) of kefir, yogurt, and soy yogurt. ?4 oz (118 ml) of tofu. ?1 oz of cheese. ?1 cup (300 g) of dried figs. ?1 cup (91 g) of cooked broccoli. ?1 3 oz can of sardines or mackerel. Most people need 1000 to 1500 mg of calcium each day. Talk to your dietitian about how much calciumis recommended for you. Shopping Buy plenty of fresh fruits and vegetables. Most people do not need to avoid fruits and vegetables, even if they contain nutrients that may contribute to kidney stones. When shopping for convenience foods, choose: ?Whole pieces of fruit. ?Premade salads with dressing on the side. ?Low-fat fruit and yogurt smoothies. Avoid buying frozen meals or prepared deli foods. Look for foods with live cultures, such as yogurt and kefir. Cooking Do not add salt to food when cooking. Place a salt shaker on the table and allow each person to addhis or her own salt to taste. Use vegetable protein, such as beans, textured vegetable protein (TVP), or tofu instead of meat in pasta, casseroles, and soups. Meal planning Eat less salt, if told by your dietitian. To do this: ?Avoid eating processed or premade food. ?Avoid eating fast food. Eat less animal protein, including cheese, meat, poultry, or fish, if told by your dietitian. To dothis: ?Limit the number of times you have meat, poultry, fish, or cheese each week. Eat a diet free of meat at least 2 days a week. ?Eat only one serving each day of meat, poultry, fish, or seafood. ?When you prepare animal protein, cut pieces into small portion sizes. For most meat and fish, one serving is about the size of one deck of cards. Eat at least 5 servings of fresh fruits and vegetables each day. To do this: ?Keep fruits and vegetables on hand for snacks. ?Eat 1 piece of fruit or a handful of berries with breakfast. ?Have a salad and fruit at lunch. ?Have two kinds of vegetables at dinner. Limit foods that are high in a substance called oxalate. These include: ?Spinach. ?Rhubarb. ?Beets. ?Potato chips and yakut fries. ?Nuts. If you regularly take a diuretic medicine, make sure to eat at least 1 2 fruits or vegetables high in potassium each day. These include: ?Avocado. ?Banana. ?Herreid, prune, carrot, or tomato juice. ?Baked potato. ?Cabbage. ?Beans and split peas. General instructions Drink enough fluid to keep your urine clear or pale yellow. This is the most important thing you can do. Talk to your health care provider and dietitian about taking daily supplements. Depending on your health and the cause of your kidney stones, you may be advised: ?Not to take supplements with vitamin C. ?To take a calcium supplement. ?To take a daily probiotic supplement. ?To take other supplements such as magnesium, fish oil, or vitamin B6. Take all medicines and supplements as told by your health care provider. Limit alcohol intake to no more than 1 drink a day for non women and 2 drinks a day for men. One drink equals 12 oz of beer, 5 oz of wine, or 1 oz of hard liquor. Lose weight if told by your health care provider. Work with your dietitian to find strategies and an eating plan that works best for you. What foods are not recommended? Limit your intake of the following foods, or as told by your dietitian. Talk to your dietitian about specific foods you should avoid based on the type of kidney stones and your overall health. Grains Breads. Bagels. Rolls. Baked goods. Salted crackers. Cereal. Pasta. Vegetables Spinach. Rhubarb. Beets. Canned vegetables. Pickles. Olives. Meats and other protein foods Nuts. Nut butters. Large portions of meat, poultry, or fish. Salted or cured meats. Deli meats. Hotdogs. Sausages. Dairy Cheese. Beverages Regular soft drinks. Regular vegetable juice. Seasonings and other foods Seasoning blends with salt. Salad dressings. Canned soups. Soy sauce. Ketchup. Barbecue sauce. Canned pasta sauce. Casseroles. Pizza. Lasagna. Frozen meals. Potato chips. Belarusian fries. Summary You can reduce your risk of kidney stones by making changes to your diet. The most important thing you can do is drink enough fluid. You should drink enough fluid to keep your urine clear or pale yellow. Ask your health care provider or dietitian how much protein from animal sources you should eat eachday, and also how much salt and calcium you should have each day. This information is not intended to replace advice given to you by your health care provider. Make sure you discuss any questions you have with your health care provider. Document Released: 06/20/2011 Document Revised: 06/15/2019 Document Reviewed: 02/03/2017 [employer] Patient Education 2020 [employer]. Follow Up Care 03/11/2022 14:12:56 With:TAHIR RODRIGUEZ, Princess Pena, URL Address: [facility] [address], [place] [address]- When: Unknown [facility] Future App[facility]ments Appointment Date:08/25/2022 10:15:00 AM Scheduled Provider:Princess HARO MD Location:[facility] Appointment Type:URO Office Visit Diagnostic Tests Pending * Calculi Analysis Urinary 04/21/22 [facility] evaluation + Plan note Future Appointments Appointment Date:02/06/2023 08:00:00 AM Scheduled Provider: Location:[facility] Appointment Type:FM Medicare Wellness Subsequent Appointment Date:03/30/2023 10:00:00 AM Scheduled Provider:Bony Calhoun MD Location:[facility] Appointment Type:FM Open [facility] Future Appointments Appointment Date:10/21/2023 08:45:00 AM Scheduled Provider:Chen Estrella PA-C [facility] [place] [facility] Type:Pain Management - New (FT) Appointment Date:12/29/2023 10:00:00 AM Scheduled Provider:Bony Calhoun MD Location:[facility] Appointment Type:FM Open Appointment Date:02/08/2024 08:00:00 AM Scheduled Provider: Location:[facility] Appointment Type:FM Medicare Wellness Subsequent Diagnostic Tests Pending * HgbA1c 09/28/23 [facility] Future Appointments Appointment Date:12/29/2023 10:00:00 AM Scheduled Provider:Bony Calhoun MD Location:[facility] Appointment Type:FM Open Appointment Date:02/08/2024 08:00:00 AM Scheduled Provider: Location:[facility] Appointment Type:FM Medicare Wellness Subsequent [facility] Evaluation noteNo assessment information available [facility] Work Phone: Evaluation note* Diagnosis Onset Date Resolution Status Change in bowel habits acute [facility] Work Phone: History and physical note Author Jatinder Pittman [facility] September 27, 2021 9:01am Note Date/Time September 27, 2021 8:47 am [facility] [address] [place] [address] Gastroenterology H&P Signed Patient: Mildred Bran MR#: [id number] : 1945 Acct:[id number] Age/Sex: 75 / F Adm Date: 2 Loc: Room: Type: [facility] Attending Dr: Jatinder Pittman DO Copies to: DO Lisandra Smith Jr, MD~ Date of Service: 09/27/2021 Gastroenterology HPI History of Present Illness HPI: Ms. Bran is a 75 year old female with change in bowels, constipation. Negative family history. Last colonoscopy was 10 yrs ago. Review of Systems Review of Systems All other systems reviewed & are negative unless noted below or in HPI PMFSH Vaccinated for COVID-19?: Yes Medical History Hypothyroid Rotator cuff (capsule) sprain Surgical History H/O: hysterectomy History of total knee replacement Family History Father Parkinson disease Social History Substance Use Type: None Meds Home and Active Medications Home and Active Medications: Home Medications amitriptyline 10 mg tablet 10 mg PO DAILY 09/27/21 [History Confirmed 09/27/21] celecoxib 200 mg capsule 200 mg PO DAILY 09/27/21 [History Confirmed 09/27/21] fluoxetine 20 mg capsule (Prozac) 20 mg PO DAILY 09/27/21 [History Confirmed 09/27/21] levothyroxine 75 mcg tablet 75 mcg PO DAILY 09/27/21 [History Confirmed 09/27/21] modafinil 100 mg tablet 100 mg PO DAILY 09/27/21 [History Confirmed 09/27/21] Active Medications Sodium Chloride (0.9% Sodium Chloride 1,000 Ml) 1,000 mls @ 20 mls/hr IV .Q24H EMILY Stop: 09/27/22 07:44 Last Admin: 09/27/21 08:32 Dose: 20 mls/hr Sodium Chloride (Sodium Chloride 0.9 % 10 Ml Syringe) 0 ml IV-PUSH PRN PRN PRN Reason: Flush Stop: 09/27/22 07:43 Exam Physical Exam Vital Signs: Temp Pulse Resp BP Pulse Ox O2 Del Method 98.0 F 68 18 125/71 97 Room Air 09/27/21 08:07 09/27/21 08:07 09/27/21 08:07 09/27/21 08:07 09/27/21 08:07 09/27/21 08:07 Const General: no acute distress Orientation: alert and oriented x3 Resp Effort & Inspection: normal respiratory effort Auscultation: clear to auscultation bilaterally Cardio Rate: regular rate Rhythm: regular rhythm GI Palpation: soft and nontender Auscultation: normal bowel sounds Extrem General: no edema A&P - Gastroenterology Assessment/Plan (1) Change in bowel habits: Code(s): R19.4 - Change in bowel habit Status: Acute Plan colonoscopy for evaluation Documented By: Jatinder Pittman Jr, 09/27/21 084 4 Signed By: <Electronically signed by Jatinder Pittman Jr, DO> 09/27/21 0901 [facility] Work Phone: Hospital course Narrative No data available for this section [facility] Hospital Discharge instructions No data available for this section [facility] No data available for this section [facility] Summary Purpose Family History No Family History Records Found Relationship Condition Age at Onset Recorded Date/T lu father Parkinson's disease Unknown Advance Directives No Advanced Directives Records Found Advance Directive Response Recorded Date/ Time Advance Directives No August 13 1:20pm Hospital Course Note Patient: MILDRED BRAN Age: 73 years Sex: Female : 1945 Associated Diagnoses: None Author: IRENA GEE MD Subjective Patient comfortable. Objective EXAM: Patient is alert. Positive ability to flex and extend the fer and toes, warm, sensate foot, able to fire quad. Vital Signs (last 24 hrs) Last Charted Temp Oral 36.7 degC (APR 23 07:18) Resp Rate 16 br/min (APR 23 07:18) SBP H 153mmHg (APR 23:18) DBP 82 mmHg (APR 23:) Labs (Last four charted values) WBC 7.7 (APR 23) 8.4 (APR 22) 6.0 (APR 06) Hgb 12.0 (APR 23) L 11.3 (APR 22) 14.0 (APR 06) Hct 36.0 (APR 23) L 33.7 (APR 22) 41.4 (APR 06) Plt 222 (APR 23) 223 (APR 22) 231 (APR 06) Na 137 (APR 22) 140 (APR 06) K 3.8 (APR 22) 4.2 (APR 06) CO2 28.3 (APR 22) 30.2 (APR 06) Cl 106 (APR 22) 106 (APR 06) Cr 0.7 (APR 22) 0.7 (APR 06) BUN H 23 (APR 22) H 24 (APR 06) Glucose Random H 135 (APR 22) H 135 (APR 22) 83 (APR 06) Ca L 8.2 (APR 22) 9.5 (APR 06) INR .9 (APR 06) Impress (more content not included)... Note Patient: MILDRED BRAN Age: 73 years Sex: Female : 1945 Associated Diagnoses: None Author: IRENA GEE MD Subjective Patient comfortable. Objective EXAM: Patient is alert. Positive ability to flex and extend the fer and toes, warm, sensate foot, able to fire quad. Vital Signs (last 24 hrs) Last Charted Temp Oral 36.9 degC (AUG 23 04:00) Resp Rate 16 br/min (AUG 23 04:00) SBP 140 mmHg (AUG 23 04:00) DBP 80 mmHg (AUG 23 04:00) Weight 98.3 kg (AUG 22 15:57) Height 152.40 cm (AUG 22 15:57) BMI 42.32 (AUG 22 15:57) Labs (Last four charted values) WBC 8.6 (AUG 23) 5.5 (AUGUST 04) Hgb 12.0 (AUG 23) 13.8 (AUGUST 04) Hct L 35.8 (AUG 23) 41.8 (AUGUST 04) Plt 209 (AUG 23) 261 (AUGUST 04) Na 141 (AUG 23) 139 (AUGUST 04) K 3.7 (AUG 23) 4.5 (AUGUST 04) CO2 29.0 (AUG 23) 28.8 (AUGUST 04) Cl 106 (AUG 23) 103 (AUGUST 04) Cr 0.6 (AUG 23) 0.6 (AUGUST 04) BUN 18 (AUG 23) H 22 (AUGUST 04) Glucose Random H 127 (AUG 23) 80 (AUGUST 04) Ca 8.5 (AUG 23) 9.1 (AUGUST 04) INR .9 (JULY (more content not included)... Chief Complaint and Reason for Visit Chief Complaint Bowel Habit Changes, Constipation Chief Complaint Bowel Habit Changes, Constipation Bowel Habit Changes, Constipation Reason for Visit Change in bowel habi ts Additional Source Comments INFORMATION SOURCE (unrecogn ized section and content) DATE CREATED AUTHOR 08/20/2019 [facility] DATE CREATED AUTHOR AUTHOR'S ORGANIZ ATION 09/26/2019 [facility] DATE CREATED AUTHOR AUTHOR'S ORGANIZ ATION 11/27/2020 [facility] DATE CREATED AUTHOR AUTHOR'S ORGANIZ ATION 10/03/2021 [facility] DATE CREATED AUTHOR AUTHOR'S ORGANIZ ATION 06/13/2022 [facility] DATE CREATED AUTHOR AUTHOR'S ORGANIZ ATION 10/01/2023 [facility] DATE CREATED AUTHOR AUTHOR'S ORGANIZ ATION 10/08/2023 [facility] Care Teams (unrecognized sec tion and content) Team Status: Inactive Member Role Status Dates Lisandra Ring MD Primary Care Provider Active Jatinder Pittman DO Attending Provider Active Team Status: Active Member Role Status Dates Lisandra Ring MD Primary Care Provider Active Goals (unrecognized section and content) Goals may be documented in a n alternate section No data available for this section No data available for this section No data available for this section No data available for this section No data available for this section No data available for this section No data available for this section FOR RECORDS PERTAINING TO PATIENTS WHO ARE OR HAVE BEEN ENROLLED IN A CHEMICAL DEPENDENCY/SUBSTANCEABUSE PROGRAM, SOME INFORMATION MAY BE OMITTED. This clinical summary was aggregated from multiple sources. Caution should be exercised in using it in the provision of clinical care. This summary normalizes information from multiple sources, and as a consequence, information in this document may materially change the coding, format and clinical context of patient data. In addition, data may be omitted in some cases. CLINICAL DECISIONS SHOULD BE BASED ON THE PRIMARY CLINICAL RECORDS. [facility] [employer] [facility]. provides no warranty or guarantee of the accuracy or completeness of information in this document.
--- NOTE | 2023-10-31 16:31 | CT_ITS ---
[address] [address] Patient Name: MILDRED BRAN MRN: [id number] date: 1945 Sex: F Assigned Patient Location: ER Current Patient Location: Accession/Order Number: [id number] Exam Date: 10/31/2023 16:48 Report Date: 10/31/2023 19:00 At the request of: MIRTA AHN Procedure: CT abdomen pelvis wo con EXAM: CT abdomen pelvis wo con HISTORY: flank pain . Right flank pain for several days. Apparently the patient has recently passed a stone. . COMPARISON: CT scan 04/10/2022, 03/11/2021 and earlier. TECHNIQUE: CT abdomen pelvis without contrast. Axial scans with reformatted coronal sagittal images. Individualized dose reduction used for this exam. FINDINGS: Lower chest: Minor densities lung bases, no acute process. ABDOMEN: Kidneys/ureters tract: Dilatation right upper collecting system and renal pelvis mildly moderately ureteral dilatation. Slightly less prominent than previous. No perinephric stranding around the lower pole is unchanged. There is no calculus in the right ureter or within the bladder. There are calculi in the lower pole right kidney 4 mm and smaller. Several new calculi compared to previous. Punctate nonobstructing calculus lower pole left kidney.. Mall low-attenuation lesions liver are unchanged. Prominent fluid-filled gallbladder without calcified stone or surrounding inflammation. Adrenal glands, spleen unremarkable. Fatty infiltration throughout the pancreas unchanged. No ascites or free fluid. No adenopathy. Normal size aorta. Previous gastric bypass. No small bowel distention. Moderate to large amount of gas and stool throughout the colon similar to previous. Colonic diverticulosis without diverticulitis. Pelvis: Small amount of fluid in the bladder. Normal pelvic ureters without ureteral or bladder calcification. No mass or adenopathy or free fluid. MUSCULOSKELETAL: No suspicious bone lesion. Small ventral fat-containing hernia 1.[address]/CT abdomen pelvis wo con IMPRESSION: 1. Right hydronephrosis and hydroureter without calculus in the ureter or bladder. Can be seen with a recently passed calculus. 2. Nonobstructing calculi lower pole right kidney 4 mm and smaller. Several new calculi since 04/10/2022. 3. Colonic diverticulosis without diverticulitis. Electronically authenticated by: MICHELE VIVAR Date: 10/31/2023 19:00
--- NOTE | 2023-10-31 16:58 | ED_ITS ---
HPI HPI - Back Pain/Injury General Chief Complaint: Back Pain/Injury Stated Complaint: Flank Pain Time Seen by Provider: 10/31/23 16:31 Source: patient Mode of arrival: walk-in History of Present Illness HPI Narrative: The patient is coming to us with a right flank pain radiating to the suprapubic area, the patient have a history of kidney stone, it was even before I evaluated the patient that she went to the bathroom when she felt that she passed the stone of close she still having some right flank pain, there was no nausea no vomiting no fever no chills Related Data Allergies Allergy/AdvReac Type Severity Reaction Status Date / Time adhesive tape Allergy Severe Rash Verified 10/31/23 16:11 albuterol Allergy Severe Cough Verified 10/31/23 16:11 cephalexin [From Keflex] Allergy Severe Anaphylaxis Verified 10/31/23 16:11 benzoine Allergy Severe Blister Uncoded 10/31/23 16:11 Opioid HPI Opioid Management Most Recent Opioid Data: No Data to Display Review of Systems ROS Status of ROS 10 or more systems reviewed and unremark able except as noted in history and below Exam Narrative Exam Narrative: Nurses notes and vital signs reviewed and patient is not hypoxic. General: Well-appearing and in no apparent distress. Skin: Warm, dry, no pallor noted. No rash. Head: Normocephalic, atraumatic. Neck: Supple, non-tender. Eye: Pupils are equal, round and EOMI. No scleral icterus. Ears, Nose, Mouth, and Throat: TM are clear, no nasal mucosal hypertrophy. Oral mucosa is moist, no posterior oropharynx erythema, uvula is mid-line Cardiovascular: Regular Rate and Rhythm without murmur, gallop or rub. Respiratory: No accessory muscle use or respiratory distress. Lungs are clear to auscultation, no wheezing, rales or rhonchi Chest Wall: no tenderness Back: No midline thoracic or lumbar vertebral tenderness. Right CVA tenderness Musculoskeletal: normal ROM, no calf or popliteal tenderness, no lower extremity edema/swelling GI: Abdomen is soft, non-distended. Normal bowel sounds. No masses appreciated. No tenderness to palpation. No rebound, guarding, or rigidity noted. Neurological: A&O x4. No cranial nerve dysfunction observed. No truncal ataxia. Moves all extremities. Sensation intact. Psychiatric: Cooperative and interactive. Normal mood and affect. Constitutional Vital Signs, click to edit/add: Last Vital Signs Temp 98.6 F 10/31/23 16:06 Pulse 82 10/31/23 16:06 Resp 16 10/31/23 16:06 BP 145/64 H 10/31/23 16:06 Pulse Ox 97 10/31/23 16:06 O2 Del Method Room Air 10/31/23 16:06 Course Vital Signs Vital signs: Vital Signs Temperature 98.6 F 10/31/23 16:06 Pulse Rate 82 10/31/23 16:06 Respiratory Rate 16 10/31/23 16:06 Blood Pressure 145/64 H 10/31/23 16:06 Pulse Oximetry 97 10/31/23 16:06 Oxygen Delivery Method Room Air 10/31/23 16:06 Temperature 98.6 F 10/31/23 16:06 Pulse Rate 82 10/31/23 16:06 Respiratory Rate 16 10/31/23 16:06 Blood Pressure 145/64 H 10/31/23 16:06 Pulse Oximetry 97 10/31/23 16:06 Oxygen Delivery Method Room Air 10/31/23 16:06 MDM - Back Pain/Injury MDM Narrative Medical decision making narrative: While she was in the ER the patient did pass a kidney stone that is almost 2 mm CBC and chemistry showed no acute significant pathology and the CAT scan without contrast is pending Patient provided with Toradol for pain control Lab Data Labs: Lab Results 10/31/23 Range/Units 16:15 WBC 6.4 (4.0-11.0) 10^3/uL RBC 4.24 (4.20-5.40) 10^6/uL Hgb 13.0 (12.0-16.0) g/dL Hct 40.0 (36.0-48.0) % MCV 94.3 (81.0-99.0) fL MCH 30.7 (26.7-34.0) pg MCHC 32.5 (29.9-35.2) g/dL RDW 12.2 (11.0-15.0) % Plt Count 276 (150-450) 10^3/uL MPV 11.1 (9.5-13.5) fL Neut % (Auto) 56.7 (43.0-75.0) % Lymph % (Auto) 31.7 (20.5-60.0) % [place] % (Auto) 8.0 (1.7-12.0) % Eos % (Auto) 2.5 (0.9-7.0) % Baso % (Auto) 0.8 (0.2-2.0) % Neut # (Auto) 3.6 (1.4-6.5) 10^3/uL Lymph # (Auto) 2.0 (1.2-3.8) 10^3/uL [place] # (Auto) 0.5 (0.3-0.8) 10^3/uL Eos # (Auto) 0.2 (0.0-0.7) 10^3/uL Baso # (Auto) 0.1 (0.0-0.1) 10^3/uL Abs Immat Gran (auto) 0.02 (0.00-0.03) 10^3/uL Imm/Tot Granulo (auto) 0.3 (0.0-0.5) % Sodium 138 (136-145) mmol/L Potassium 3.8 (3.5-5.1) mmol/L Chloride 103 (98-107) mmol/L Carbon Dioxide 25.9 (21.0-32.0) mmol/L Anion Gap 12.9 BUN 36.0 H (7.0-18.0) mg/dL Creatinine 0.89 (0.55-1.02) mg/dL Est GFR ( Amer) >60 (>=60) Est GFR (Non-Af Amer) >60 (>=60) BUN/Creatinine Ratio 40.4 Glucose 112 H (74-106) mg/dL Calcium 9.2 (8.5-10.1) mg/dL Total Bilirubin 0.3 (0.2-1.0) mg/dL AST 22 (15-37) U/L ALT 48 (14-59) U/L Alkaline Phosphatase 215 H (46-116) U/L Total Protein 7.6 (6.4-8.2) g/dL Albumin 4.1 (3.4-5.0) g/dL Globulin 3.5 g/dL Albumin/Globulin Ratio 1.2 Urine Color Dk. yellow (YELLOW) Urine Clarity Clear (CLEAR) Urine pH 6.0 (5.0-9.0) Ur Specific [place] 1.025 (1.005-1.025) Urine Protein Negative (NEG/TRACE) mg/dL Urine Glucose (UA) Negative (NEGATIVE) mg/dL Urine Ketones Trace A (NEGATIVE) mg/dL Urine Occult Blood Negative (NEGATIVE) Urine Nitrite Negative (NEGATIVE) Urine Bilirubin Negative (NEGATIVE) Urine Urobilinogen 0.2 (0.2-1.0) EU/dL Ur Leukocyte Esterase Negative (NEGATIVE) Discharge Plan Discharge Patient Disposition: Still a Patient
[2023-10-31] MEDS: 0.9 % SODIUM CHLORIDE 1,000 ML 1000 ML IV (17:04)
[2023-10-31] MEDS: KETOROLAC TROMETHAMINE 30 MG/ML VIAL 15 MG IVP (17:04)
--- NOTE | 2023-10-31 17:08 | PC.NURSE ---
PT WENT TO BATHROOM AGAIN AND THINKS SHE PASSED KIDNEY STONE. BROUGHT STONE TO ROOM TO SHOW DR AHN. PT STILL FEELS SORE ON R LOWER ABD BUT DOES NOT HAVE FLANK PAIN. WARM BLANKET GVEN
[2023-10-31 17:11] LABS: Basophils Absolute Auto 0.1 10^3/uL (0.0-0.1); Basophils Percent Auto 0.8 % (0.2-2.0); Eosinophils Absolute Auto 0.2 10^3/uL (0.0-0.7); Eosinophils Percent Auto 2.5 % (0.9-7.0); Immature Granulocytes Abs Auto 0.02 10^3/uL (0.00-0.03); Immature Granulocytes Pct Auto 0.3 % (0.0-0.5); Lymphocytes Percent Auto 31.7 % (20.5-60.0); Mean Corpuscular HGB Conc 32.5 g/dL (29.9-35.2); Mean Corpuscular Hemoglobin 30.7 pg (26.7-34.0); Mean Corpuscular Volume 94.3 fL (81.0-99.0); Mean Platelet Volume 11.1 fL (9.5-13.5); Monocytes Absolute Auto 0.5 10^3/uL (0.3-0.8); Neutrophils Absolute Auto 3.6 10^3/uL (1.4-6.5); Neutrophils Percent Auto 56.7 % (43.0-75.0); Platelet Count 276 10^3/uL (150-450); Red Blood Count 4.24 10^6/uL (4.20-5.40); Red Cell Distribution Width 12.2 % (11.0-15.0); White Blood Count 6.4 10^3/uL (4.0-11.0)
[2023-10-31 17:12] LABS: Bilirubin Urine NEGATIVE (NEGATIVE); Blood Urine NEGATIVE (NEGATIVE); Clarity Urine CLEAR (CLEAR); Color Urine DK. YELLOW (YELLOW); Glucose Urine UA NEGATIVE (NEGATIVE); Ketones Urine TRACE mg/dL (NEGATIVE); Leukocyte Esterase Urine NEGATIVE (NEGATIVE); Nitrite Urine NEGATIVE (NEGATIVE); Protein Urine NEGATIVE (NEG/TRACE); Specific Gravity Urine 1.025 (1.005-1.025); Urobilinogen Urine 0.2 EU/dL (0.2-1.0)
[2023-10-31 17:14] LABS: Urine Microscopic Indicated NO
[2023-10-31 17:24] LABS: Alanine Aminotransferase 48 U/L (14-59); Albumin Globulin Ratio 1.2; Albumin Level 4.1 g/dL (3.4-5.0); Alkaline Phosphatase 215 U/L (46-116); Anion Gap 12.9; Aspartate Amino Transferase 22 U/L (15-37); BUN Creatinine Ratio 40.4; Bilirubin Total 0.3 mg/dL (0.2-1.0); Calcium 9.2 mg/dL (8.5-10.1); Carbon Dioxide 25.9 mmol/L (21.0-32.0); Chloride 103 mmol/L (98-107); Estimated GFR (African America >60 (>=60); Estimated GFR (Non-African Ame >60 (>=60); Globulin 3.5 g/dL; Glucose 112 mg/dL (74-106); Potassium 3.8 mmol/L (3.5-5.1); Sodium 138 mmol/L (136-145); Total Protein 7.6 g/dL (6.4-8.2)
== END 2023-10-31 18:59 | disposition left against medical advice (07) ==
PROVIDERS: Emergency Provider Emergency Medicine; PCP Family Medicine
DX: N13.2 Hydronephrosis with renal and ureteral calculous obstruction (principal); Z87.442 Personal history of urinary calculi
CPT/HCPCS: 36415; 74176; 80053; 81003; 85025; 96374; 99285; J1885

== ENCOUNTER 2024-01-01 09:58 | Outpatient (RCR) | payer MEDICARE, SELFPAY | END 2024-01-05 11:36 | disposition home or self-care (01) | LOC: PT 09:58 | PROVIDERS: PCP Family Medicine; Visit Provider Family Medicine | DX: R42 Dizziness and giddiness (principal); I10 Essential (primary) hypertension; E11.9 Type 2 diabetes mellitus without complications; G47.10 Hypersomnia, unspecified | CPT/HCPCS: 95992; 97161 ==

== ENCOUNTER 2024-09-05 16:02 | Emergency (ER) | payer MEDICARE, SELFPAY ==
[2024-09-05 16:08] VITALS: BP 120/70; PULSE 68; TEMP 36.6; O2SAT 97; BMI 35.9
--- OUTSIDE RECORDS SUMMARY | 2024-09-05 16:10 | XMS_ITS | Clinical Summary ---
Author Organization [facility] Address [address] [place] [address] Phone Care Team Providers Care Pole Peeler Name Role Phone Unavailable Primary Care Provider Unavailabl e Social History Tobacco Use Types Packs/Day Years Used Date Smoking Tobacco: Never Assessed Comments Unknown Sex and Gender Information Value Date Recorded Sex Assigned at Not on file Legal Sex Female 5:00 AM EST Gender Identity Not on file Sexual Orientation Not on file Plan of Treatment Not on file
--- OUTSIDE RECORDS SUMMARY | 2024-09-05 16:10 | XMS_ITS | Clinical Summary ---
Author Organization [facility] Address [address] [place] [address] Care Team Providers Care Head Of Acquisitions Name Role Phone Unavailable Primary Care Provider Unavailabl e Social History Tobacco Use Types Packs/Day Years Used Date Smoking Tobacco: Never Assessed Comments Unknown Sex and Gender Information Value Date Recorded Sex Assigned at Not on file Legal Sex Female 3:33 PM EST Gender Identity Not on file Sexual Orientation Not on file Plan of Treatment Not on file
--- OUTSIDE RECORDS SUMMARY | 2024-09-05 16:10 | XMS_ITS | Encounter Summary ---
Author Organization [facility] Address [address] [place] [address] Care Team Providers Care Php Wordpress Developer Name Role Phone Bony Calhoun MD Primary Care Provider [phone] Encounter Details Date Type Department Care Team ([facility] st Contact Info) Description 07/19/2024 Results Follow-Up [facility] [address] [place] [id number] Tre Heaton DPM [address] [address] Social History Tobacco Use Types Packs/Day Years Used Date Smoking Tobacco: Never Smokeless Tobacco: Never Alcohol Use Standard Drinks/Week Comments Defer 0 (1 standard drink = 0.6 oz pur e alcohol) Comments Unknown Sex and Gender Information Value Date Recorded Sex Assigned at Not on file Legal Sex Female 6:58 PM EDT Gender Identity Not on file Sexual Orientation Not on file documented as of this encounter Plan of Treatment Not on file documented as of this encounter Visit Diagnoses Not on filedocumented in this encounter Care Teams Php Wordpress Developer Relationship Specialty Start Date End Date Bony Calhoun MD [address] [place] [id number] PCP - General Family Medicine 01/01/24 documented as of this encounter
--- NOTE | 2024-09-05 16:13 | ED.GENADUL1 ---
HPI HPI - General Adult General Chief complaint: Skin/Abscess/Foreign Body Stated complaint: TOOK A OTC HAIR APPLICATION MED, ORALLY Time Seen by Provider: 09/05/24 16:05 History of Present Illness HPI narrative: 78-year-old female presented because she ingested a topical medication. She took by mouth 5 mL of liquid minoxidil. She had it at home for hair growth and she has another liquid at home that she takes for different reason and she took this by accident. She took about 20 or 30 minutes ago and she has no symptoms. No abdominal pain or vomiting. She does not feel dizzy. Related Data Allergies Allergy/AdvReac Type Severity Reaction Status Date / Time adhesive tape Allergy Severe Rash Verified 10/31/23 16:11 albuterol Allergy Severe Cough Verified 10/31/23 16:11 cephalexin (From Keflex) Allergy Severe Anaphylaxis Verified 10/31/23 16:11 benzoine Allergy Severe Blister Uncoded 10/31/23 16:11 Review of Systems ROS Narrative A ten point review of systems is negative except as noted above. Exam Narrative Exam Narrative: Nurses note and vital signs reviewed and patient is not hypoxic. General: The patient appears well and in no apparent distress. Patient is resting comfortably on cart. Skin: Warm, dry, no pallor noted. There is no rash noted. Head: Normocephalic, atraumatic Eye: Normal conjunctiva, no drainage Ears, Nose, Mouth, and Throat: oral mucosa is moist. Nares patent. Cardiovascular: Regular Rate and Rhythm Respiratory: Patient is in no distress, no accessory muscle use, lungs are clear to auscultation, no wheezing, rales or rhonchi Back: non-tender GI: Soft and nontender Musculoskeletal: The patient has no evidence of calf tenderness, no pitting edema, symmetrical pulses noted bilaterally Neurological: A&O, normal speech Psychiatric: Cooperative Medical Decision Making [facility] Narrative Medical decision making narrative: The ingredients are minoxidil, ethanol, propylene glycol, and water. She has taken a nontoxic ingestion and no therapy is needed at this point. She was reassured. Differential Diagnosis Differential Diagnosis: Nontoxic ingestion, toxic ingestion Discharge Plan Discharge Chief Complaint: Skin/Abscess/Foreign Body Clinical Impression: Ingestion of nontoxic substance Patient Disposition: Home, Self-Care Time of Disposition Decision: 16:12 Condition: Good Mode of Transportation: Private Vehicle Print Language: Slovak Instructions: Normal Exam (ED) Referrals: SKYLAR BURGOS [Primary Care Provider, Family Practice] - 1 week
--- NOTE | 2024-09-05 16:18 | PC.NURSE ---
PT ACCIDENTLY INGESTED MINOXIDIL TOPICAL HAIR GROWTH SERUM MISTAKING IT FOR HER LIQUID GLUCOSE SUPPLEMENT. PT HAS NO SYMPTOMS FROM INGESTION
== END 2024-09-05 16:17 | disposition home or self-care (01) ==
PROVIDERS: Emergency Provider Emergency Medicine; PCP Family Medicine
DX: T46.7X1A Poisoning by peripheral vasodilators, accidental (unintentional), initial encounter (principal)
CPT/HCPCS: 99281